=== PATIENT | female | born 1985 | race Caucasian/White ===

== ENCOUNTER 2018-05-07 12:31 | Inpatient (IN) | payer BC, MEDICAID ==
[~2018-05-07] VITALS: Ht 165.1 cm; Wt 59.1 kg
[2018-05-07] MEDS ORDERED: TENORMIN25 MG PO (12:47)
[2018-05-07] MEDS ORDERED: PROTONIX40 MG PO (12:48)
[2018-05-07] MEDS ORDERED: OMEPRAZOLE20 M1 PO (12:48)
--- NOTE | 2018-05-07 13:10 | NUR ---
URINE COLLECTED BY NURSE AND SENT TO LAB.
[2018-05-07 13:33] LABS: BASOPHILS 0.4 % (0-2); EOSINOPHILS 0.8 % (0-7); HCG SERUM NEGATIVE (NEGATIVE); HEMATOCRIT 39.2 % (36.0-48.0); HEMOGLOBIN 13.1 g/dL (12-16); IMMATURE GRANULOCYTES 0.4 % (0-5); LYMPHOCYTES 36.8 % (15-50); MCH 28.4 pg (26.0-34.0); MCHC 33.4 g/dL (31.0-37.0); MCV 84.8 fL (80.0-100.0); MEAN PLATELET VOLUME 9.9 fL (7.4-10.4); MONOCYTES 8.9 % (2-11); NEUTROPHILS 52.7 % (40-80); RBC 4.62 10x6/uL (4.00-5.40); RDW 12.4 % (11.5-14.5); WBC 7.8 10x3/uL (4.8-10.8)
[2018-05-07 13:37] LABS: PLATELET COUNT 305 10x3/uL (130-400)
[2018-05-07 13:38] LABS: APPEARANCE CLEAR (CLEAR); BILIRUBIN NEGATIVE (NEGATIVE); COLOR STRAW (YELLOW); GLUCOSE NEGATIVE (NEGATIVE); KETONE NEGATIVE (NEGATIVE); NITRITE NEGATIVE (NEGATIVE); PROTEIN NEGATIVE (NEGATIVE); SPECIFIC GRAVITY 1.005 (1.005-1.020); UROBILINOGEN NORMAL (NORMAL)
[2018-05-07 13:40] LABS: ALBUMIN 3.7 g/dL (3.4-5.0); ALKALINE PHOSPHATASE 51 U/L (46-116); ALT (SGPT) 20 U/L (10-68); BILIRUBIN - TOTAL 0.19 mg/dL (0.2-1.3); CALC OSMOLALITY 284 mosm/kg (275-300); CALCIUM 9.1 mg/dL (8.5-10.1); CHLORIDE - SERUM 105 mmol/L (98-107); CREATININE - SERUM 0.9 mg/dL (0.6-1.3); GLUCOSE 99 mg/dL (74-106); POTASSIUM - SERUM 3.7 mmol/L (3.5-5.1); PROTEIN - SERUM 7.5 g/dL (6.4-8.2); SODIUM 144 mmol/L (136-145); UREA NITROGEN 8 mg/dL (7-18); eGFR NON AFRICAN AMERICAN 77 mL/min (90-120)
[2018-05-07 13:41] LABS: UDS - AMPHET NEGATIVE QUAL (NEGATIVE); UDS - BARB NEGATIVE QUAL (NEGATIVE); UDS - BENZO NEGATIVE QUAL (NEGATIVE); UDS - COCAINE NEGATIVE QUAL (NEGATIVE); UDS - OPIATE NEGATIVE QUAL (NEGATIVE); UDS - PCP NEGATIVE QUAL (NEGATIVE); UDS - THC NEGATIVE QUAL (NEGATIVE)
[2018-05-07 13:43] LABS: AMYLASE - SERUM 95 U/L (25-115); CREATINE KINASE 28 UL (21-215); LIPASE 588 U/L (73-393); MAGNESIUM - SERUM 1.8 mg/dL (1.8-2.4); TROPONIN-I < 0.017 ng/mL (0.000-0.060)
[2018-05-07 14:07] LABS: MONO NEGATIVE (NEGATIVE)
[2018-05-07 15:58] LABS: GLUCOSE - CSF 58 MG/DL (40-75); PROTEIN - CSF 32 MG/DL (12-60)
[2018-05-07 16:13] LABS: APPEARANCE - CSF CLEAR; RBC - CSF 0 cmm (0-0)
[2018-05-07] MEDS ORDERED: NEURONTIN 300300 MG PO (21:37)
--- NOTE | 2018-05-07 21:50 | NUR ---
SPOKE WITH HASMUKH IN REGARDS TO PATIENT'S HOME MEDS PER THE PATIENT'S REQUEST.
--- NOTE | 2018-05-07 21:56 | NUR ---
SPOKE WITH TELE FOOD TRUCK CATERER. NO MONITORS ARE AVAILABLE AT THIS TIME.
[2018-05-08 00:01] VITALS: BP 104/69; BMI 22.5
[2018-05-08 00:20] VITALS: BP 104/69
[2018-05-08 04:00] VITALS: BP 98/59
[2018-05-08 07:15] LABS: BASOPHILS 0.4 % (0-2); EOSINOPHILS 1.1 % (0-7); HEMATOCRIT 34.7 % (36.0-48.0); HEMOGLOBIN 11.1 g/dL (12-16); IMMATURE GRANULOCYTES 0.7 % (0-5); LYMPHOCYTES 38.1 % (15-50); MCH 27.6 pg (26.0-34.0); MCV 86.3 fL (80.0-100.0); MEAN PLATELET VOLUME 9.9 fL (7.4-10.4); MONOCYTES 7.8 % (2-11); NEUTROPHILS 51.9 % (40-80); RBC 4.02 10x6/uL (4.00-5.40); RDW 12.4 % (11.5-14.5)
--- NOTE | 2018-05-08 07:17 | NUR ---
PT'S IV GOING OFF, SAYING INFUSING COMPLETE. NEW BAG OF NS HUNG AT THIS TIME. PT A/O X4, RESP EVEN AND NONLABORED ON RA. BOWEL SOUNDS ACTIVE X4. PT DENIES ANY PAIN AT THIS TIME. CALL LIGHT IN REACH, NAD NOTED, WILL CONTINUE PLAN OF CARE.
[2018-05-08 07:26] LABS: PLATELET COUNT 222 10x3/uL (130-400); WBC 5.6 10x3/uL (4.8-10.8)
[2018-05-08 07:56] LABS: ALBUMIN 2.8 g/dL (3.4-5.0); ALKALINE PHOSPHATASE 38 U/L (46-116); ALT (SGPT) 15 U/L (10-68); AMYLASE - SERUM 79 U/L (25-115); BILIRUBIN - TOTAL 0.27 mg/dL (0.2-1.3); CALC OSMOLALITY 288 mosm/kg (275-300); CALCIUM 7.8 mg/dL (8.5-10.1); CARBON DIOXIDE 26.2 mmol/L (21.0-32.0); CHLORIDE - SERUM 110 mmol/L (98-107); CREATININE - SERUM 0.8 mg/dL (0.6-1.3); GLUCOSE 90 mg/dL (74-106); LIPASE 479 U/L (73-393); POTASSIUM - SERUM 3.8 mmol/L (3.5-5.1); PROTEIN - SERUM 5.9 g/dL (6.4-8.2); SODIUM 146 mmol/L (136-145); THYROID STIMULATING HORMONE 1.03 uIU/mL (0.36-3.74); UREA NITROGEN 6 mg/dL (7-18); eGFR NON AFRICAN AMERICAN 88 mL/min (90-120)
[2018-05-08 08:24] VITALS: BP 112/67
[2018-05-08 12:56] VITALS: BP 107/71
[2018-05-08 13:19] VITALS: BMI 22.4
[2018-05-08 13:20] LABS: EBV - EARLY ANTIGEN AB IGG <9.0 U/mL (0.0-8.9); EBV VIRAL CAPSID AB IGG 74.4 U/mL (0.0-17.9); EBV VIRAL CAPSID AB IGM <36.0 U/mL (0.0-35.9)
[2018-05-08 16:50] VITALS: BP 99/65
--- NOTE | 2018-05-08 17:50 | NUR ---
NORCO GIVEN FOR PAIN LEVEL OF 7/10. PT DENIES ANY OTHER NEEDS AT THIS TIME. CALL LIGHT IN REACH, AT BEDSIDE, NAD NOTED.
[2018-05-08 19:48] VITALS: Ht 165.1 cm; Wt 59.1 kg
--- NOTE | 2018-05-08 21:28 | NUR ---
RECEIVED PATIENT, INTRODUCED MYSELF AND ASKED PAIN LEVEL, PATIENT DENIED ANY PAIN OR DISCOMFORT AT 0730. BED IN LOWEST POSITION, CALL LIGHT IN REACH. NO NEEDS AT THIS TIME. GAVE 2100 MEDS AND REMINDED PATIENT NPO STATUS AT MIDNIGHT.
--- NOTE | 2018-05-08 21:58 | NUR ---
PT HAS ORDER FOR TELEMETRY, NO TELEMETRY AVAILABLE ON THIS SHIFT.
--- NOTE | 2018-05-09 00:39 | NUR ---
PT NPO AFTER MIDNIGHT. PT VERBALIZED UNDERSTANDING. FLUIDS REMOVED FROM BEDSIDE. WILL CPOC
--- NOTE | 2018-05-09 06:12 | NUR ---
PT ASLEEP. AROUSES TO VERBAL STIMULI. PT IS AAO. NPO SINCE MIDNIGHT. PT HAS NS INFUSING AT 125 ORDERED. MORNING VITALS COMPLETE. PT DENIES ANY NEEDS. NO S/S OF DISTRESS. PT WILL CALL FOR ASSIST WHEN NEEDED. WILL CPOC
[2018-05-09 06:13] VITALS: BP 100/58
[2018-05-09 07:45] LABS: ALBUMIN 3.2 g/dL (3.4-5.0); ALKALINE PHOSPHATASE 47 U/L (46-116); ALT (SGPT) 16 U/L (10-68); AMYLASE - SERUM 82 U/L (25-115); BILIRUBIN - TOTAL 0.18 mg/dL (0.2-1.3); CALCIUM 8.3 mg/dL (8.5-10.1); CARBON DIOXIDE 25.9 mmol/L (21.0-32.0); CHLORIDE - SERUM 109 mmol/L (98-107); CREATININE - SERUM 0.8 mg/dL (0.6-1.3); GLUCOSE 98 mg/dL (74-106); LIPASE 446 U/L (73-393); POTASSIUM - SERUM 3.8 mmol/L (3.5-5.1); PROTEIN - SERUM 6.7 g/dL (6.4-8.2); SODIUM 145 mmol/L (136-145); eGFR NON AFRICAN AMERICAN 88 mL/min (90-120)
[2018-05-09 07:48] LABS: CALC OSMOLALITY 285 mosm/kg (275-300); UREA NITROGEN 3 mg/dL (7-18)
[2018-05-09 08:12] LABS: HEMATOCRIT 35.7 % (36.0-48.0); LYMPHOCYTES 20.3 % (15-50); MCH 28.6 pg (26.0-34.0); MCHC 33.6 g/dL (31.0-37.0); MCV 85.2 fL (80.0-100.0); MEAN PLATELET VOLUME 9.5 fL (7.4-10.4); NEUTROPHILS 73.7 % (40-80); PLATELET COUNT 209 10x3/uL (130-400); RBC 4.19 10x6/uL (4.00-5.40); WBC 8.4 10x3/uL (4.8-10.8)
[2018-05-09 09:34] VITALS: BP 106/68
[2018-05-09 12:41] VITALS: BP 113/68
[2018-05-09 16:42] VITALS: BP 109/70
--- NOTE | 2018-05-09 19:30 | NUR ---
INTRODUCED SELF TO PATIENT, PATIENT RESTING. ASKED ABOUT PATIENTS DAY, PATIENT STATED THAT SHE'S HAD A HEADACHE ALL DAY, NORCO DIDN'T RELIEVE AT 1700. STATED THAT NS WAS BURNING IN CHEST WHEN RECONNECTED. VITAL SIGNS STABLE, MENTIONED TALKING TO MD AND DAYSHIFT RN ABOUT CHANGING PROTONIX TO LIQUID/IVP BUT NO ORDER ENTERED TO CHANGE IT.
--- NOTE | 2018-05-09 22:00 | NUR ---
GAVE NORCO, PAIN 11/06 BUT REASSESSED BURNING R/T NS BEING RECONNECTED PT STATED THE BURNING WAS GONE BUT STILL HAD A HEADACHE AND FELT "OFF". AT BEDSIDE, GAVE SOUP TO PATIENT. BED LOW, CALL LIGHT IN REACH. NO NEEDS AT THIS TIME.
[2018-05-09 23:30] VITALS: BP 116/78
--- NOTE | 2018-05-10 02:03 | NUR ---
PATIENT ASLEEP, AT BEDSIDE.
--- NOTE | 2018-05-10 06:19 | NUR ---
PATIENT ASLEEP, TOOK VITALS AND GAVE 0600 PROTONIX. WANTS IV PROTONIX BUT TOOK PO THIS TIME. STILL COMPLAINING OF HEADACHE, WANTED TO ASK DR FOR EKG TODAY. OFFERED PAIN MEDS BUT PATIENT DENIED WANTING THEM AT THIS TIME.
[2018-05-10 07:28] LABS: ALKALINE PHOSPHATASE 47 U/L (46-116); ALT (SGPT) 13 U/L (10-68); AMYLASE - SERUM 84 U/L (25-115); BILIRUBIN - TOTAL 0.19 mg/dL (0.2-1.3); CALCIUM 8.2 mg/dL (8.5-10.1); CARBON DIOXIDE 23.4 mmol/L (21.0-32.0); CHLORIDE - SERUM 109 mmol/L (98-107); CREATININE - SERUM 0.7 mg/dL (0.6-1.3); GLUCOSE 99 mg/dL (74-106); LIPASE 513 U/L (73-393); POTASSIUM - SERUM 3.6 mmol/L (3.5-5.1); PROTEIN - SERUM 6.4 g/dL (6.4-8.2); SODIUM 142 mmol/L (136-145); eGFR NON AFRICAN AMERICAN > 90 mL/min (90-120)
[2018-05-10 07:30] LABS: CALC OSMOLALITY 279 mosm/kg (275-300); UREA NITROGEN 5 mg/dL (7-18)
[2018-05-10 07:50] LABS: BASOPHILS 0.3 % (0-2); EOSINOPHILS 1.8 % (0-7); HEMOGLOBIN 10.9 g/dL (12-16); IMMATURE GRANULOCYTES 0.6 % (0-5); LYMPHOCYTES 29.9 % (15-50); MCH 27.7 pg (26.0-34.0); MCHC 32.1 g/dL (31.0-37.0); MCV 86.3 fL (80.0-100.0); MEAN PLATELET VOLUME 9.8 fL (7.4-10.4); MONOCYTES 6.4 % (2-11); PLATELET COUNT 217 10x3/uL (130-400); RBC 3.94 10x6/uL (4.00-5.40); RDW 12.5 % (11.5-14.5)
--- NOTE | 2018-05-10 08:00 | NUR ---
PT LAYING IN BED RESTING WITH EYES OPEN. PT C/O HEADACHE THIS AM. RESPIRATIONS EVEN AND UNLABORED, NO S/S OF DISTRESS NOTED. BOWEL SOUNDS PRESENT X4 HYPOACTIVE. DENIES NEEDS. BED LOW AND LOCKED, SR UP X2, CL IN EASY REACH. WILL CONTINUE TO MONITOR.
[2018-05-10 08:24] VITALS: BP 116/72
--- NOTE | 2018-05-10 11:00 | NUR ---
SITTING UP IN BED. REQUESTED AND GIVEN JELLO TO EAT. DENIES NEEDS. NO C/O PAIN AT THIS TIME.
[2018-05-10 11:40] VITALS: BP 110/79
--- NOTE | 2018-05-10 12:17 | NUR ---
Nutrition Follow Up: Chart reviewed. Diet: Regular PO Intake: 70% meal avg Wt stable BM: 05/09/18 Labs reviewed - Lipase continues elevated Meds noted including Creon Rec continue current diet as tolerated. RD following.
--- NOTE | 2018-05-10 16:30 | NUR ---
IV TO LEFT AC REMOVED, TIP INTACT. NEW IV RESITED TO RIGHT FOREARM, PATENT, SWAB CAPS IN USE. VOICES THAT THE IV SITE FEELS A WHOLE LOT BETTER. DENIES FURTHER NEEDS. CL IN EASY REACH.
[2018-05-10 16:43] VITALS: BP 108/70
--- NOTE | 2018-05-10 20:00 | NUR ---
THE PATIENT WAS WATCHING TELEVISION WITH FAMILY WHEN STAFF ENTERED HER ROOM. BED IN THE LOW POSITION WITH SIDERAILS X1 AND CALL LIGHT WITHIN REACH. THE PATIENT WILL BE GOING FOR A MRI SOON. THE PATIENT DEMONSTRATES UNDERSTANDING OF HER CALLL LIGHT. THE PATIENT HAS NOQUESTIONS OR CONCERNS AT THIS TIME.
[2018-05-10 20:36] VITALS: BP 126/78
[2018-05-11] VITALS: BP 130/68
[2018-05-11 03:00] VITALS: BP 125/58
--- NOTE | 2018-05-11 03:20 | NUR ---
THE PATIENT APPEARS TO BE SLEEPING. FAMILY IN THE ROOM.
[2018-05-11 06:11] LABS: BASOPHILS 0.3 % (0-2); EOSINOPHILS 1.6 % (0-7); HEMATOCRIT 33.4 % (36.0-48.0); HEMOGLOBIN 11.1 g/dL (12-16); IMMATURE GRANULOCYTES 0.5 % (0-5); LYMPHOCYTES 35.1 % (15-50); MCH 28.2 pg (26.0-34.0); MCHC 33.2 g/dL (31.0-37.0); MEAN PLATELET VOLUME 9.2 fL (7.4-10.4); MONOCYTES 6.6 % (2-11); NEUTROPHILS 55.9 % (40-80); PLATELET COUNT 211 10x3/uL (130-400); RBC 3.93 10x6/uL (4.00-5.40); RDW 12.4 % (11.5-14.5); WBC 6.1 10x3/uL (4.8-10.8)
[2018-05-11 06:40] LABS: ALKALINE PHOSPHATASE 44 U/L (46-116); ALT (SGPT) 15 U/L (10-68); AMYLASE - SERUM 69 U/L (25-115); BILIRUBIN - TOTAL 0.22 mg/dL (0.2-1.3); CALC OSMOLALITY 282 mosm/kg (275-300); CALCIUM 7.9 mg/dL (8.5-10.1); CARBON DIOXIDE 26.3 mmol/L (21.0-32.0); CHLORIDE - SERUM 108 mmol/L (98-107); CREATININE - SERUM 0.8 mg/dL (0.6-1.3); GLUCOSE 101 mg/dL (74-106); LIPASE 391 U/L (73-393); POTASSIUM - SERUM 3.5 mmol/L (3.5-5.1); PROTEIN - SERUM 6.4 g/dL (6.4-8.2); SODIUM 143 mmol/L (136-145); eGFR NON AFRICAN AMERICAN 88 mL/min (90-120)
[2018-05-11 06:44] LABS: UREA NITROGEN 8 mg/dL (7-18)
--- NOTE | 2018-05-11 07:35 | NUR ---
PT RESTING IN BED EYES OPEN. C/O PAIN 11/06. NO S/S OF ACUTE DISTRESS NOTED. IV TO RIGHT FOREARM, SITE PATENT WITHOUT REDNESS OR SWELLING. NS INFUSING @ 125ML/HR. PT ON TELEMETRY 63 SR. SPINAL TAP YESTERDAY. PT ALERT AND ORIENTED. PT DENIES ANYTHING FURTHER AT THIS TIME. CALL LIGHT IN REACH. WILL CONTINUE TO MONITOR.
--- NOTE | 2018-05-11 08:00 | NUR ---
PT C/O PAIN, 11/06. GAVE NORCO 5 FOR PAIN. NO S/S OF ACUTE DISTRESS. PT DENIES ANYTHING FURTHER AT THIS TIME. CALL LIGHT IN REACH. WILL CONTINUE TO MONITOR.
[2018-05-11 08:25] VITALS: BP 102/69
[2018-05-11 12:02] VITALS: BP 112/77
--- NOTE | 2018-05-11 12:30 | NUR ---
PT EATING LUNCH AT THIS TIME, DENIES NEEDS. WCTM.
[2018-05-11 16:52] VITALS: BP 105/70
--- NOTE | 2018-05-11 18:45 | NUR ---
PT RESTING IN BED, EYES OPEN. AT BEDSIDE. NO C/O PAIN. NO S/S OF DISTRESS NOTED. PT DENIES ANYTHING FURTHER AT THIS TIME. CALL LIGHT IN REACH. WILL CONTINUE TO MONITOR.
[2018-05-11 19:00] VITALS: BP 114/53
--- NOTE | 2018-05-11 19:38 | NUR ---
RECIEVED UP IN BED WITH HOB ELEVATED. ALERT AND ORIENTED X4. SPOUSE AT BEDSIDE. IV TO RIGHT FA WITH NS INFUSING AT 125HR. DENIES ANY NEEDS AT THIS TIME. WILL CONT. POC.
[2018-05-12] VITALS: BP 120/80
[2018-05-12 03:00] VITALS: BP 112/69
[2018-05-12 07:33] LABS: BASOPHILS 0.3 % (0-2); EOSINOPHILS 1.2 % (0-7); HEMATOCRIT 33.2 % (36.0-48.0); HEMOGLOBIN 10.9 g/dL (12-16); IMMATURE GRANULOCYTES 0.8 % (0-5); LYMPHOCYTES 33.9 % (15-50); MCH 27.9 pg (26.0-34.0); MCHC 32.8 g/dL (31.0-37.0); MCV 85.1 fL (80.0-100.0); NEUTROPHILS 55.8 % (40-80); PLATELET COUNT 230 10x3/uL (130-400); RDW 12.6 % (11.5-14.5)
[2018-05-12 08:02] LABS: ALKALINE PHOSPHATASE 39 U/L (46-116); ALT (SGPT) 13 U/L (10-68); AMYLASE - SERUM 71 U/L (25-115); BILIRUBIN - TOTAL 0.19 mg/dL (0.2-1.3); CALC OSMOLALITY 283 mosm/kg (275-300); CARBON DIOXIDE 24.7 mmol/L (21.0-32.0); CHLORIDE - SERUM 108 mmol/L (98-107); CREATININE - SERUM 0.7 mg/dL (0.6-1.3); GLUCOSE 89 mg/dL (74-106); LIPASE 427 U/L (73-393); POTASSIUM - SERUM 3.5 mmol/L (3.5-5.1); PROTEIN - SERUM 6.1 g/dL (6.4-8.2); SODIUM 144 mmol/L (136-145); UREA NITROGEN 6 mg/dL (7-18); eGFR NON AFRICAN AMERICAN > 90 mL/min (90-120)
[2018-05-12 09:37] VITALS: BP 107/63
[2018-05-12 13:00] VITALS: BP 114/81
--- NOTE | 2018-05-12 14:45 | NUR ---
RN NOTE - PATIENT OOB TO SHOWER. PATIENT AT BEDSIDE. BED STRIPPED AND NEW LINEN APPLIED. PATIENTS JOSIAH SECRET BLANKET PLACED ON OPPOSED TO HOSPITAL BLANKET PER PATIENTS . NO DISTRESS. PATIENT STATES SHE NEEDED NO HELP WHILE BATHING.
[2018-05-12 15:12] VITALS: BP 109/73
--- NOTE | 2018-05-12 16:14 | NUR ---
C/O SEVERE HEADACHE ON RIGHT SIDE RADIATING ACROSS FOREHEAD. STATED SHE DOES SUFFER FROM MIGRAINES BUT THIS ONE IS "DIFFERENT" VS WERE B/P OF 109/66, HEART RATE OF 60. ADMINISTERED NORCO PER ORDER. WILL CONTINUE TO MONITOR. BED LOWERED AND LOCKED, CALL LIGHT WITHIN REACH. CPOC
--- NOTE | 2018-05-12 16:29 | NUR ---
22 GAUGE PLACED X 1 STICK TO LEFT HAND. GOOD BLOOD RETURN, EASY FLUSH. TAPED, DATED AND SECURED. TOLERATED IV PLACEMENT WELL. NO DISTRESSS.
[2018-05-12 19:00] VITALS: BP 100/63
--- NOTE | 2018-05-12 21:20 | NUR ---
PATIENT RESTING IN BED WITH NO S/S OF DISTRESS. ADMINISTERED MEDS PER ORDERS. PATIENT DENIES OTHER NEEDS AT THIS TIME. BED IN LOWEST POSITION AND CALL LIGHT WITHIN REACH. ENCOURAGED THE PATIENT TO CALL IF HE HAS NEEDS.
[2018-05-13] VITALS: BP 115/60
[2018-05-13 03:00] VITALS: BP 101/64
[2018-05-13 08:00] VITALS: BP 115/77
--- NOTE | 2018-05-13 08:10 | NUR ---
PT AOX4 RESP EVEN AND NONLABORED PT DENIES NEEDS AT THIS TIME IV TO LEFT HAND PATENT AND INTACT AT THIS TIME SRX2 BED AT LOWEST SETTING CALL LIGHT WITHIN REACH WILL CONTINUE TO MONITOR
[2018-05-13 10:12] LABS: BASOPHILS 0.5 % (0-2); EOSINOPHILS 1.1 % (0-7); HEMATOCRIT 38.9 % (36.0-48.0); HEMOGLOBIN 12.8 g/dL (12-16); IMMATURE GRANULOCYTES 0.5 % (0-5); LYMPHOCYTES 34.1 % (15-50); MCH 28.1 pg (26.0-34.0); MCHC 32.9 g/dL (31.0-37.0); MCV 85.3 fL (80.0-100.0); MEAN PLATELET VOLUME 10.7 fL (7.4-10.4); MONOCYTES 7.6 % (2-11); NEUTROPHILS 56.2 % (40-80); PLATELET COUNT 255 10x3/uL (130-400); RBC 4.56 10x6/uL (4.00-5.40); RDW 12.5 % (11.5-14.5); WBC 6.3 10x3/uL (4.8-10.8)
[2018-05-13 10:44] LABS: ALBUMIN 3.7 g/dL (3.4-5.0); ALKALINE PHOSPHATASE 48 U/L (46-116); ALT (SGPT) 16 U/L (10-68); AMYLASE - SERUM 94 U/L (25-115); BILIRUBIN - TOTAL 0.18 mg/dL (0.2-1.3); CALC OSMOLALITY 283 mosm/kg (275-300); CARBON DIOXIDE 23.7 mmol/L (21.0-32.0); CHLORIDE - SERUM 109 mmol/L (98-107); CREATININE - SERUM 0.8 mg/dL (0.6-1.3); GLUCOSE 88 mg/dL (74-106); LIPASE 581 U/L (73-393); POTASSIUM - SERUM 3.5 mmol/L (3.5-5.1); PROTEIN - SERUM 7.5 g/dL (6.4-8.2); SODIUM 144 mmol/L (136-145); UREA NITROGEN 6 mg/dL (7-18); eGFR NON AFRICAN AMERICAN 88 mL/min (90-120)
[2018-05-13 12:00] VITALS: BP 109/51
[2018-05-13 13:02] LABS: % SATURATION 17 % (15-55); IRON 65 ug/dl (35-150); TOTAL IRON BIND CAPACITY 378 ug/dl (260-445); UNSAT IRON BIND CAPACITY 313 ug/dl (150-375)
--- NOTE | 2018-05-13 15:31 | NUR ---
Spoke with pt about nutrition. She is now NPO Started on Procalamine at 75mL/hour. This rate provides 441 calories and 53gm protein RD following
[2018-05-13 16:00] VITALS: BP 104/69
[2018-05-13 20:00] VITALS: BP 114/73
--- NOTE | 2018-05-13 20:12 | NUR ---
PATIENT C/O OF PAIN AT IV SITE. WILL START NEW IV
[2018-05-13 20:57] LABS: ERYTHROCYTE SEDIMENTATION RATE 14 mm/hr (0-20)
--- NOTE | 2018-05-13 23:35 | NUR ---
ROBBIE PAPPAS ATTEMPTED THE PATIENT'S IV TWO TIMES AND WAS UNSUCCESSFUL. CALLED ICU, THEY WILL SEND A NURSE SOON POSSIBLE TO ATTEMPT IV. SPOKE WITH NUPUR
[2018-05-14] VITALS: BP 104/65
--- NOTE | 2018-05-14 02:35 | NUR ---
SPOKE WITH ICU AGAIN IN REGARDS TO STARTING IV. NUPUR STATED IT WOULD BE A LITTLE WHILE BUT THEY WILL BE DOWN
[2018-05-14 04:00] VITALS: BP 102/67
--- NOTE | 2018-05-14 04:50 | NUR ---
ER NURSE RESTARTED PATIENT'S IV IN THE LEFT UPPER ARM WITH A 22G
[2018-05-14 07:05] LABS: BASOPHILS 0.1 % (0-2); EOSINOPHILS 1.3 % (0-7); HEMATOCRIT 38.8 % (36.0-48.0); HEMOGLOBIN 13.1 g/dL (12-16); IMMATURE GRANULOCYTES 0.3 % (0-5); LYMPHOCYTES 36.4 % (15-50); MCH 28.3 pg (26.0-34.0); MCHC 33.8 g/dL (31.0-37.0); MCV 83.8 fL (80.0-100.0); MEAN PLATELET VOLUME 11.2 fL (7.4-10.4); MONOCYTES 7.6 % (2-11); NEUTROPHILS 54.3 % (40-80); RBC 4.63 10x6/uL (4.00-5.40); RDW 12.5 % (11.5-14.5); WBC 6.8 10x3/uL (4.8-10.8)
[2018-05-14 07:13] LABS: PLATELET COUNT 200 10x3/uL (130-400)
[2018-05-14 07:37] LABS: ALBUMIN 3.2 g/dL (3.4-5.0); ALKALINE PHOSPHATASE 45 U/L (46-116); ALT (SGPT) 15 U/L (10-68); BILIRUBIN - TOTAL 0.14 mg/dL (0.2-1.3); CALC OSMOLALITY 283 mosm/kg (275-300); CALCIUM 8.6 mg/dL (8.5-10.1); CARBON DIOXIDE 24.6 mmol/L (21.0-32.0); CHLORIDE - SERUM 108 mmol/L (98-107); CREATININE - SERUM 0.7 mg/dL (0.6-1.3); GLUCOSE 91 mg/dL (74-106); LIPASE 437 U/L (73-393); POTASSIUM - SERUM 3.4 mmol/L (3.5-5.1); PROTEIN - SERUM 6.8 g/dL (6.4-8.2); SODIUM 144 mmol/L (136-145); UREA NITROGEN 5 mg/dL (7-18); eGFR NON AFRICAN AMERICAN > 90 mL/min (90-120)
[2018-05-14 07:55] VITALS: BP 104/70
[2018-05-14 10:24] LABS: FOLATE (FOLIC ACID) - SERUM 12.5 ng/mL (>3.0)
[2018-05-14 11:54] VITALS: BP 102/67
[2018-05-14 15:40] VITALS: BP 142/57
--- NOTE | 2018-05-14 19:31 | NUR ---
PATIENT RESTING IN BED AND DENIES NEEDS AT THIS TIME. AT BEDSIDE. BED IN LOWEST POSITION AND CALL LIGHT WITHIN REACH. ENCOURAGED THE PATIENT TO CALL IF SHE HAS NEEDS. WILL CONTINUE TO MONITOR.
[2018-05-14 19:44] VITALS: BP 102/60
[2018-05-15 04:00] VITALS: BP 96/50
--- NOTE | 2018-05-15 04:50 | NUR ---
PATIENT STATED THAT SHE HAD NOT URINATED TONIGHT AND STATED SHE DID NOT FEEL THE URGE TO GO. I ASKED THE PATIENT TO GO TO THE RESTROOM AND TRY TO URINATE. PATIENT WAS ABLE TO VOID ONE TIME. PATIENT IS CONCERNED BECAUSE HER MENSTRUAL CYCLE ENDED APROX ONE WEEK AGO AND THE PATIENT STATED SHE HAS BLOOD IN HER URINE AND FEELS THAT SHE IS STARTING HER CYCLE AGAIN.
[2018-05-15 05:44] LABS: BASOPHILS 0.1 % (0-2); EOSINOPHILS 1.1 % (0-7); HEMATOCRIT 36.8 % (36.0-48.0); HEMOGLOBIN 12.2 g/dL (12-16); IMMATURE GRANULOCYTES 0.2 % (0-5); LYMPHOCYTES 26.9 % (15-50); MCH 27.9 pg (26.0-34.0); MCHC 33.2 g/dL (31.0-37.0); MEAN PLATELET VOLUME 10.5 fL (7.4-10.4); MONOCYTES 7.6 % (2-11); NEUTROPHILS 64.1 % (40-80); PLATELET COUNT 237 10x3/uL (130-400); RBC 4.38 10x6/uL (4.00-5.40); RDW 12.5 % (11.5-14.5); WBC 8.2 10x3/uL (4.8-10.8)
[2018-05-15 06:10] LABS: ALBUMIN 3.3 g/dL (3.4-5.0); ALKALINE PHOSPHATASE 45 U/L (46-116); ALT (SGPT) 13 U/L (10-68); BILIRUBIN - TOTAL 0.27 mg/dL (0.2-1.3); CALCIUM 8.7 mg/dL (8.5-10.1); CARBON DIOXIDE 24.6 mmol/L (21.0-32.0); CHLORIDE - SERUM 105 mmol/L (98-107); CREATININE - SERUM 0.7 mg/dL (0.6-1.3); GLUCOSE 102 mg/dL (74-106); LIPASE 401 U/L (73-393); POTASSIUM - SERUM 3.9 mmol/L (3.5-5.1); PROTEIN - SERUM 6.7 g/dL (6.4-8.2); SODIUM 141 mmol/L (136-145); eGFR NON AFRICAN AMERICAN > 90 mL/min (90-120)
[2018-05-15 06:11] LABS: CALC OSMOLALITY 279 mosm/kg (275-300); UREA NITROGEN 11 mg/dL (7-18)
[2018-05-15 07:54] VITALS: BP 111/62
[2018-05-15 11:46] VITALS: BP 106/73
--- NOTE | 2018-05-15 12:29 | MORECARE ---
CASE MANAGEMENT DISCHARGE SUMMARY PATIENT: CYNDIE CAMACHO UNIT: [id number] ADM DATE: 05/09/18 AGE: 32 : 85 SEX: F ROOM/BED: D.1205 AUTHOR: LESLY ALBERTS PHYSICIAN: REFERRING PHYSICIAN: DOLORES ALVAREZ MD DATE OF SERVICE: 05/15/18 Discharge Plan Patient Name: CYNDIE CAMACHO Facility: [facility]:[place] : 1985 Planned Disposition: Anticipated Discharge Date: Discharge Date: Expected LOS: Initial Reviewer: [email or web address] Initial Review Date: 05/15/2018 Generated: 05/15/18 1:29 pm Comments DCP- Discharge Planning Updated by [email or web address]: Nickie Smith on 05/15/18 11:[address] Patient Name: CYNDIE CAMACHO Admission Status: ER Accout number: [id number] Admission Date: 05-09-2018 : 1985 Admission Diagnosis:FEVER, UNSPECIFIED Attending: DOLORES ALVAREZ Current LOS: 6 Anticipated DC Date: Planned Disposition: Primary Insurance: [employer] OUT OF STATE Discharge Planning Comments: CM MET WITH PATIENT ABOUT DC PLANNING/NEEDS. [facility] DOESN'T KNOW OF ANY NEEDS AT THISTIME. [facility] HOME IS SAFE AND SHE LIVES THERE WITH HER FAMILY. CM WILL FOLLOW AND ASSIST NEEDED WITH DC PLANNING/NEEDS. Software Configuration Engineer: Nickie Smith DCPIA - Discharge Planning Initial Assessment Updated by [id number]: Nickie Smith on 05/15/18 12:22 pm * Is the patient Alert and Oriented? Yes * PCP MARIUSZ * Pharm[facility] * Preadmission Environment Home with Family * ADLs Independent * Equipment None * List name and contact numbers for known caregivers / representatives who currently or will assist patient after discharge: GAYATRI, , * Community resources currently utilized None * Can the patient safely return to the preadmission environment? Yes * Has this patient been hospitalized within the prior 30 days at any hospital? No Patient Name: CYNDIE CAMACHO Page [phone] at 1229 All edits/amendments must be made on the electronic document DICTATION DATE: 05/15/181228 REGIONAL CLINICAL RESEARCH ASSOCIATE: BE 05/15/181228 RPT#: [id number] DC DATE: STATUS: ADM IN [facility] [address] [place] [address] END OF REPORT
--- NOTE | 2018-05-15 15:37 | NUR ---
4MG OF ZOFRAN GIVEN FOR NAUSEA. ALSO HUNG ANTIBIOTIC. PT DENIES DENIES ANY OTHER NEEDS AT THIS TIME. CALL LIGHT IN REACH, NAD NOTED,W ILL CONTINUE TO MONITOR.
[2018-05-15 15:46] VITALS: BP 117/72
--- NOTE | 2018-05-15 16:01 | NUR ---
Pt reports no appetite Discussed the calories and protein provided by Procalamine Discussed some food options that may be better tolerated. Encouraged a low fat diet Will add fruit on each tray per pt requests RD following
--- NOTE | 2018-05-15 19:37 | NUR ---
PT BACK FROM IMAGING. FAMILY CHANGED BED SHEETS. PT HAS NO S/S OF DISTRESS. WILL CPOC
--- NOTE | 2018-05-15 20:42 | NUR ---
PT HOOKED UP TO PROCAL AT 75 TO LEFT AC. PT TELEMETRY PLACED ON AND BATTERY CHANGED. DINNER REMOVED FROM ROOM PT KEPT THE FRUIT AND ENSURE. PT ATE 0 OF ACTUAL DINNER TRAY. PT HAS NO S/S OF DISTRESS. PT IS AAO, UP WITH MINIMAL ASSIST. FAMILY AT BEDSIDE. CALL LIGHT IN REACH. NAME AND DATE PLACED ON BOARD. WILL CPOC
[2018-05-15 21:00] VITALS: BP 100/67
--- NOTE | 2018-05-15 23:56 | NUR ---
PT ASLEEP. RESP EVEN AND UNLABORED. BEDLOW AND CALL LIGHT IN REACH. PT HAS NO S/S OF DISTRESS. FAMILY AT BEDSIDE. WILL CPOC
[2018-05-16 06:28] LABS: BASOPHILS 0.2 % (0-2); EOSINOPHILS 1.4 % (0-7); HEMATOCRIT 36.8 % (36.0-48.0); HEMOGLOBIN 12.2 g/dL (12-16); IMMATURE GRANULOCYTES 0.2 % (0-5); LYMPHOCYTES 26.8 % (15-50); MCH 28.1 pg (26.0-34.0); MCHC 33.2 g/dL (31.0-37.0); MCV 84.8 fL (80.0-100.0); MEAN PLATELET VOLUME 10.5 fL (7.4-10.4); MONOCYTES 8.8 % (2-11); NEUTROPHILS 62.6 % (40-80); PLATELET COUNT 240 10x3/uL (130-400); RBC 4.34 10x6/uL (4.00-5.40); RDW 12.8 % (11.5-14.5); WBC 8.7 10x3/uL (4.8-10.8)
--- NOTE | 2018-05-16 06:48 | NUR ---
PT RESTING IN BED. PT DENIES ANY NEEDS. NO S/S OF DISTRESS,. FAMILY IN ROOM. PT WILL CALL FOR ASSIST WHEN NEEDED. WILL CPOC
[2018-05-16 06:59] VITALS: BP 112/71
--- NOTE | 2018-05-16 07:02 | NUR ---
MEDS AND VITALS DONE. PT WAS ASLEEP AROUSES TO VERBAL STIMULI. PT STATES BEST SLEEP SHE HAS HAD IN A LONG TIME. PT HAS NO S/S OF DISTRESS. PROCAL INFUSING ORDERED. PT DENIES ANY NEEDS. NO S/S OF DISTRESS. WILL CPOC
[2018-05-16 07:10] LABS: ALBUMIN 3.2 g/dL (3.4-5.0); ALKALINE PHOSPHATASE 41 U/L (46-116); ALT (SGPT) 12 U/L (10-68); BILIRUBIN - TOTAL 0.17 mg/dL (0.2-1.3); CALC OSMOLALITY 277 mosm/kg (275-300); CALCIUM 8.6 mg/dL (8.5-10.1); CARBON DIOXIDE 25.2 mmol/L (21.0-32.0); CHLORIDE - SERUM 104 mmol/L (98-107); CREATININE - SERUM 0.7 mg/dL (0.6-1.3); GLUCOSE 102 mg/dL (74-106); LIPASE 425 U/L (73-393); POTASSIUM - SERUM 3.8 mmol/L (3.5-5.1); PROTEIN - SERUM 6.6 g/dL (6.4-8.2); SODIUM 140 mmol/L (136-145); UREA NITROGEN 10 mg/dL (7-18); eGFR NON AFRICAN AMERICAN > 90 mL/min (90-120)
--- NOTE | 2018-05-16 08:26 | NUR ---
PT LYING IN BED STATED SHE IS STARTING TO SPOT, AFTER URINATING THIS MORNING BLOOD IS IN URINE, SHE ADVISED DR CHAMPAGNE YESTERDAY AND HE STATED HE WOULD REVIEW MEDS, WILLMENTION TO AGAIN THIS MORNING, CONTINUE WITH PLAN OF CARE
[2018-05-16 09:46] VITALS: BP 106/68
--- NOTE | 2018-05-16 11:41 | NUR ---
PT LYING IN BED C/O CONSTANT HEADACHES STILL AND NAUSEA. NO NEEDS VOICED STATED SHE IS TRYING TO EAT BUT STILL NO APPETITIE. BED IN LOW POSITION, CL IN REACH CONTINUE WITH PLAN OF CARE
[2018-05-16 12:22] VITALS: BP 109/64
[2018-05-16 17:27] VITALS: BP 109/68
--- NOTE | 2018-05-16 17:50 | NUR ---
PT REDavid AND REC'D THAIS AT THIS TIME. WCBHAVNA.
--- NOTE | 2018-05-16 19:43 | NUR ---
INTRODUCED SELF TO PATIENT, AT BEDSIDE. PATIENT MENTIONED SEVERAL CONCERNS OVER THE LAST FEW SHIFTS. PATIENT STATED THAT DR. MARTINEZ MENTIONED SENDING HER HOME OVER THE WEEKEND, SHE FEELS IF SHE ISN'T READY TO BE DISCHARGED. PER PATIENT HAS HAD A CONSTANT HEADACHE, LOW BP FOR HER BASELINE AND PATIENT MENTIONED, AGAIN, TO THIS NURSE THAT TWO SHIFTS AGO SHE WENT APPROX. 13 HOURS WITHOUT URINATING AND IS NOW SPOTTING BLOOD (MENSES WAS COMPLETE LAST WEEK). EDUCATED AND DISCUSSED WITH PATIENT ABOUT S/SX OF UTI OR YEAST POSS. R/T BEING ON ROCEPHIN. PROVIDED NEW HAT TO DOCUMENT STRICT I&O'S AND MONITOR FOR ANY BLEEDING.
--- NOTE | 2018-05-16 21:55 | NUR ---
PROVIDED PATIENT WITH NEW LINENS AND BATH NECESSITIES. TOOK PT OFF TELEMETRY, HELPED PT WITH SHOWER. PLACED BACK ON TELEMETRY. PATIENT STATED THAT SHE FELT NERVOUS TO TAKE ANYTHING FOR PAIN BECAUSE OF HER BP ON PREVIOUS SHIFTS. ADVISED PT THAT WE WOULD CHECK BP BEFORE ADMINISTERING ANY PAIN MEDS. PT UNDERSTOOD. BED IN LOWEST POSITION, CALL LIGHT WITHIN REACH.
--- NOTE | 2018-05-16 23:06 | NUR ---
PT EXPRESSING CONCERN REGARDING URINE LOOKING LIKE IT HAS BLOOD. PT HAD A 200CC OUTPUT. STRAWCOLOR WITH SEDIMENT PRESENT, ON THE SEDIMENT IS BLOOD. PLACED AN ORDER FOR A UA. PT DENIES ANY OTHER NEEDS. WILL CPOC
[2018-05-17 00:17] LABS: APPEARANCE CLEAR (CLEAR); BILIRUBIN NEGATIVE (NEGATIVE); COLOR COLORLESS (YELLOW); GLUCOSE NEGATIVE (NEGATIVE); KETONE NEGATIVE (NEGATIVE); NITRITE NEGATIVE (NEGATIVE); PROTEIN NEGATIVE (NEGATIVE); SPECIFIC GRAVITY 1.005 (1.005-1.020); UROBILINOGEN NORMAL (NORMAL)
--- NOTE | 2018-05-17 05:15 | NUR ---
PATIENTS CAME TO NURSES STATION STATING PATIENT WAS IN PAIN. PATIENT WAS SHAKING, STATED SHE FELT LIKE SHE HAD "PRESSURE FROM MY PANCREAS THAT MAKES ME FEEL LIKE I CAN'T BREATHE" GAVE MAURICIO, WILL REASSESS PAIN LEVEL IN 30 MINUTES. PATIENTS VITAL SIGNS ARE STABLE. BED IN LOW POSITION, CALL LIGHT IN REACH.
[2018-05-17 05:20] VITALS: BP 124/74
--- NOTE | 2018-05-17 06:51 | NUR ---
PATIENT STATES IS STILL HAVING SOME CHEST PAINS, PAIN WAS UNRELIEVED COMPLETELY BY NORCO. GIVEN ZOFRAN 4MG AT 0650.
[2018-05-17 06:55] LABS: ALBUMIN 3.6 g/dL (3.4-5.0); ALKALINE PHOSPHATASE 47 U/L (46-116); ALT (SGPT) 14 U/L (10-68); BILIRUBIN - TOTAL 0.27 mg/dL (0.2-1.3); CALC OSMOLALITY 282 mosm/kg (275-300); CALCIUM 9.1 mg/dL (8.5-10.1); CHLORIDE - SERUM 105 mmol/L (98-107); CREATININE - SERUM 0.7 mg/dL (0.6-1.3); GLUCOSE 97 mg/dL (74-106); LIPASE 529 U/L (73-393); POTASSIUM - SERUM 3.8 mmol/L (3.5-5.1); SODIUM 142 mmol/L (136-145); UREA NITROGEN 12 mg/dL (7-18); eGFR NON AFRICAN AMERICAN > 90 mL/min (90-120)
[2018-05-17 07:10] LABS: BASOPHILS 0.2 % (0-2); EOSINOPHILS 1.1 % (0-7); HEMATOCRIT 36.9 % (36.0-48.0); HEMOGLOBIN 12.1 g/dL (12-16); IMMATURE GRANULOCYTES 0.2 % (0-5); LYMPHOCYTES 26.9 % (15-50); MCH 27.8 pg (26.0-34.0); MCHC 32.8 g/dL (31.0-37.0); MCV 84.8 fL (80.0-100.0); MEAN PLATELET VOLUME 10.6 fL (7.4-10.4); MONOCYTES 6.1 % (2-11); NEUTROPHILS 65.5 % (40-80); PLATELET COUNT 261 10x3/uL (130-400); RBC 4.35 10x6/uL (4.00-5.40); RDW 12.7 % (11.5-14.5); WBC 10.1 10x3/uL (4.8-10.8)
[2018-05-17 08:00] VITALS: BP 105/69
--- NOTE | 2018-05-17 10:57 | NUR ---
Nutrition Follow Up: Chart reviewed. Pt is now NPO for MRCP. Previously pt was eating 26% meal avg on a low fat/residue diet. Noted pt continues with poor po intake and abdominal pain with eating. BM: 05/17/18 Wt loss 5# since admit Labs reviewed - Lipase continues elevated Meds noted - Procalamine d/c Pt is now assessed at severe malnutrition of acute illness R/T medical dx AEB: 1. </= to 50% intake of est energy needs for >/= to 5 days 2. > 2% wt loss in 1 week 3. Reduced regulatory affairs spec strength Rec resuming low fat/residue diet as medically feasible. Will honor food preferences. RD following.
[2018-05-17 11:53] VITALS: BP 120/64
[2018-05-17 16:00] VITALS: BP 116/73
--- NOTE | 2018-05-17 18:21 | NUR ---
RESTING QUIETLY IN BED. UNABLE TO EAT AT THIS TIME. REPORTS PAIN IS CONSTANT STILL THOUGH SLIGHTLY IMPROVED.
[2018-05-17 20:00] VITALS: BP 108/65
[2018-05-18] VITALS: BP 119/70
[2018-05-18 04:00] VITALS: BP 106/49
[2018-05-18 07:27] LABS: BASOPHILS 0.1 % (0-2); EOSINOPHILS 1.4 % (0-7); HEMATOCRIT 38.2 % (36.0-48.0); HEMOGLOBIN 12.4 g/dL (12-16); IMMATURE GRANULOCYTES 0.1 % (0-5); LYMPHOCYTES 26.9 % (15-50); MCH 27.7 pg (26.0-34.0); MCHC 32.5 g/dL (31.0-37.0); MCV 85.5 fL (80.0-100.0); MEAN PLATELET VOLUME 10.6 fL (7.4-10.4); MONOCYTES 9.3 % (2-11); NEUTROPHILS 62.2 % (40-80); PLATELET COUNT 226 10x3/uL (130-400); RBC 4.47 10x6/uL (4.00-5.40); RDW 12.8 % (11.5-14.5)
[2018-05-18 07:39] LABS: ALBUMIN 3.4 g/dL (3.4-5.0); ALKALINE PHOSPHATASE 51 U/L (46-116); ALT (SGPT) 19 U/L (10-68); BILIRUBIN - TOTAL 0.45 mg/dL (0.2-1.3); CALC OSMOLALITY 274 mosm/kg (275-300); CALCIUM 8.7 mg/dL (8.5-10.1); CARBON DIOXIDE 28.2 mmol/L (21.0-32.0); CHLORIDE - SERUM 103 mmol/L (98-107); CREATININE - SERUM 0.8 mg/dL (0.6-1.3); GLUCOSE 96 mg/dL (74-106); LIPASE 509 U/L (73-393); POTASSIUM - SERUM 4.3 mmol/L (3.5-5.1); PROTEIN - SERUM 6.9 g/dL (6.4-8.2); SODIUM 138 mmol/L (136-145); UREA NITROGEN 10 mg/dL (7-18); eGFR NON AFRICAN AMERICAN 88 mL/min (90-120)
--- NOTE | 2018-05-18 13:30 | NUR ---
DENIES ANY NEEDS AT THIS TIME.
[2018-05-18] MEDS ORDERED: CREON (PANCRELI1 CAP PO (14:07)
--- NOTE | 2018-05-18 16:30 | NUR ---
DISCUSSED DISCHARGE INSTRUCTIONS WITH FRANCINE. TOLD HER TO GO TO [facility] ED RECOMMENDED BY DOLL DRESSER. SHE STATED, "I JUST WANT TO GO HOME. I'VE BEEN HERE 12 DAYS. I MIGHT JUST GO HOME AND SLEEP FOR THE NIGHT AND GO TO THE ER TOMORROW UNLESS IT GETS BAD." EXPLAINED HOME MEDS. IV REMOVED, TIP INTACT. PATIENT DISCHARGED VIA WHEELCHAIR BY CLAUDIA HERNANDEZ; ACCOMPANIED BY SPOUSE. ALL BELONGINGS SENT WITH PATIENT.
--- NOTE | 2018-05-21 08:37 | MORECARE ---
CASE MANAGEMENT DISCHARGE SUMMARY PATIENT: CYNDIE CAMACHO UNIT: [id number] ADM DATE: 05/09/18 AGE: 32 : 85 SEX: F ROOM/BED: D.1205 AUTHOR: LESLY ALBERTS PHYSICIAN: REFERRING PHYSICIAN: DOLORES ALVAREZ MD DATE OF SERVICE: 05/21/18 Discharge Plan Patient Name: CYNDIE CAMACHO Facility: [facility]:[place] : 1985 Planned Disposition: Anticipated Discharge Date: Discharge Date: 05/18/2018 Expected LOS: Initial Reviewer: [email or web address] Initial Review Date: 05/15/2018 Generated: 05/21/18 9:36 am Comments DCP- Discharge Planning Updated by [id number]: Nickie Smith on 05/15/18 11:[address] Patient Name: CYNDIE CAMACHO Admission Status: ER Accout number: [id number] Admission Date: 05-09-2018 : 1985 Admission Diagnosis:FEVER, UNSPECIFIED Attending: DOLORES ALVAREZ Current LOS: 6 Anticipated DC Date: Planned Disposition: Primary Insurance: [employer] OUT OF STATE Discharge Planning Comments: CM MET WITH PATIENT ABOUT DC PLANNING/NEEDS. [facility] DOESN'T KNOW OF ANY NEEDS AT THISTIME. [facility] HOME IS SAFE AND SHE LIVES THERE WITH HER FAMILY. CM WILL FOLLOW AND ASSIST NEEDED WITH DC PLANNING/NEEDS. Bearing Grinder: Nickie Smith DCPIA - Discharge Planning Initial Assessment Updated by [id number]: Nickie Smith on 05/15/18 12:22 pm * Is the patient Alert and Oriented? Yes * PCP MARIUSZ * Pharm[facility] * Preadmission Environment Home with Family * ADLs Independent * Equipment None * List name and contact numbers for known caregivers / representatives who currently or will assist patient after discharge: GAYATRI, , * Community resources currently utilized None * Can the patient safely return to the preadmission environment? Yes * Has this patient been hospitalized within the prior 30 days at any hospital? No Last DP export: 05/15/18 11:29 a Patient Name: CYNDIE CAMACHO Page [id number] at 0837 All edits/amendments must be made on the electronic document DICTATION DATE: 05/21/1836 SCHOOL PSYCHOLOGY PROFESSOR: BE 05/21/1836 RPT#: [id number] DC DATE:05/18/18 STATUS: DIS IN [facility] [address] [place] [address] END OF REPORT
== END 2018-05-18 16:33 | disposition home or self-care (01) | DRG 152 ==
LOC: D.ER 12:31 → D.M3 18:56 → D.EDHOLD 18:56 → OBSVTIME 18:57 → D.M3 19:55
PROVIDERS: Family Medicine; Internal Medicine Nephrology; Student in an Organized Health Care Education/Training Program; ADMIT Emergency Medicine
PROC: 009U3ZZ Drainage of Spinal Canal, Percutaneous Approach (ICD-10-PCS; principal; 2018-05-07)
DX: H70.10 Chronic mastoiditis, unspecified ear (principal); K85.90 Acute pancreatitis without necrosis or infection, unspecified; J21.9 Acute bronchiolitis, unspecified; J02.0 Streptococcal pharyngitis; R51 Headache; N83.209 Unspecified ovarian cyst, unspecified side

== ENCOUNTER 2018-06-25 12:28 | Emergency (ER) | payer BC, MEDICAID ==
[~2018-06-25] VITALS: Ht 165.1 cm; Wt 61.4 kg
[~2018-06-25 12:28] MED LIST: CREON (PANCRELI1 CAP PO; NEURONTIN 300300 MG PO; OMEPRAZOLE20 M1 PO; PROTONIX40 MG PO; TENORMIN25 MG PO
[2018-06-25 12:33] VITALS: Ht 165.1 cm; Wt 61.4 kg
[2018-06-25 12:56] LABS: BASOPHILS 0.3 % (0-2); EOSINOPHILS 0.4 % (0-7); HEMATOCRIT 39.9 % (36.0-48.0); HEMOGLOBIN 13.6 g/dL (12-16); IMMATURE GRANULOCYTES 0.2 % (0-5); LYMPHOCYTES 27.8 % (15-50); MCH 28.2 pg (26.0-34.0); MCHC 34.1 g/dL (31.0-37.0); MCV 82.8 fL (80.0-100.0); MEAN PLATELET VOLUME 9.6 fL (7.4-10.4); MONOCYTES 7.1 % (2-11); NEUTROPHILS 64.2 % (40-80); RBC 4.82 10x6/uL (4.00-5.40); RDW 12.6 % (11.5-14.5)
[2018-06-25 13:02] LABS: PLATELET COUNT 344 10x3/uL (130-400)
[2018-06-25 13:12] LABS: ALBUMIN 4.5 g/dL (3.4-5.0); ALKALINE PHOSPHATASE 67 U/L (46-116); ALT (SGPT) 47 U/L (10-68); BILIRUBIN - TOTAL 0.52 mg/dL (0.2-1.3); CALC OSMOLALITY 275 mosm/kg (275-300); CALCIUM 9.4 mg/dL (8.5-10.1); CARBON DIOXIDE 23.2 mmol/L (21.0-32.0); CHLORIDE - SERUM 102 mmol/L (98-107); CREATININE - SERUM 0.9 mg/dL (0.6-1.3); GLUCOSE 97 mg/dL (74-106); POTASSIUM - SERUM 3.9 mmol/L (3.5-5.1); PROTEIN - SERUM 8.6 g/dL (6.4-8.2); SODIUM 138 mmol/L (136-145); UREA NITROGEN 13 mg/dL (7-18); eGFR NON AFRICAN AMERICAN 77 mL/min (90-120)
[2018-06-25 13:15] LABS: AMYLASE - SERUM 161 U/L (25-115); LIPASE 719 U/L (73-393); TROPONIN-I < 0.017 ng/mL (0.000-0.060)
[2018-06-25 16:30] LABS: APPEARANCE CLEAR (CLEAR); BILIRUBIN NEGATIVE (NEGATIVE); COLOR YELLOW (YELLOW); GLUCOSE NEGATIVE (NEGATIVE); KETONE MODERATE mg/dL (NEGATIVE); NITRITE NEGATIVE (NEGATIVE); PROTEIN NEGATIVE (NEGATIVE); UROBILINOGEN NORMAL (NORMAL)
[2018-06-25 20:54] VITALS: BP 112/68
== END 2018-06-25 20:55 | disposition other institution (70) ==
LOC: D.ER 12:28
PROVIDERS: Emergency Medicine
DX: K86.1 Other chronic pancreatitis (principal); E86.0 Dehydration; R11.2 Nausea with vomiting, unspecified

== ENCOUNTER 2018-08-18 11:27 | Emergency (ER) | payer BC, MEDICAID ==
[~2018-08-18] VITALS: Ht 165.1 cm; Wt 63.6 kg
[2018-08-18 11:32] VITALS: Ht 165.1 cm; Wt 63.6 kg
[2018-08-18 12:06] LABS: BASOPHILS 0.2 % (0-2); EOSINOPHILS 1.1 % (0-7); IMMATURE GRANULOCYTES 0.2 % (0-5); LYMPHOCYTES 21.7 % (15-50); MCH 27.8 pg (26.0-34.0); MCHC 33.3 g/dL (31.0-37.0); MCV 83.3 fL (80.0-100.0); MEAN PLATELET VOLUME 9.9 fL (7.4-10.4); MONOCYTES 12.5 % (2-11); NEUTROPHILS 64.3 % (40-80); PLATELET COUNT 307 10x3/uL (130-400); RBC 4.68 10x6/uL (4.00-5.40); RDW 13.3 % (11.5-14.5)
[2018-08-18 12:16] LABS: APPEARANCE CLEAR (CLEAR); BILIRUBIN NEGATIVE (NEGATIVE); COLOR STRAW (YELLOW); GLUCOSE NEGATIVE (NEGATIVE); KETONE NEGATIVE (NEGATIVE); NITRITE NEGATIVE (NEGATIVE); PROTEIN NEGATIVE (NEGATIVE); SPECIFIC GRAVITY 1.005 (1.005-1.020); UROBILINOGEN NORMAL (NORMAL)
[2018-08-18 12:21] LABS: ALBUMIN 4.1 g/dL (3.4-5.0); ALKALINE PHOSPHATASE 72 U/L (46-116); ALT (SGPT) 23 U/L (10-68); AMYLASE - SERUM 81 U/L (25-115); CALC OSMOLALITY 276 mosm/kg (275-300); CALCIUM 9.4 mg/dL (8.5-10.1); CARBON DIOXIDE 27.8 mmol/L (21.0-32.0); CHLORIDE - SERUM 104 mmol/L (98-107); CREATININE - SERUM 0.8 mg/dL (0.6-1.3); GLUCOSE 106 mg/dL (74-106); LIPASE 318 U/L (73-393); POTASSIUM - SERUM 3.8 mmol/L (3.5-5.1); PROTEIN - SERUM 8.2 g/dL (6.4-8.2); SODIUM 140 mmol/L (136-145); UREA NITROGEN 8 mg/dL (7-18); eGFR NON AFRICAN AMERICAN 88 mL/min (90-120)
[2018-08-18 17:04] VITALS: BP 126/69
== END 2018-08-18 17:21 | disposition home or self-care (01) ==
LOC: D.ER 11:27
PROVIDERS: Family Medicine
DX: K86.1 Other chronic pancreatitis (principal)

== ENCOUNTER 2018-12-04 13:04 | Inpatient (IN) | payer BC, MEDICAID ==
[~2018-12-04] VITALS: Ht 165.1 cm; Wt 63.5 kg
--- NOTE | 2018-12-04 13:30 | NUR ---
PATIENT HAS ARRIVED TO THE FLOOR. HE IS A DIRECT ADMIT FROM DR ABAD OFFICE. HE HAS BEEN ADMITTED FOR CHRONIC PANCREATITIS. HE CAME TO THE FLOOR BY WHEELCHAIR. HE ARRIVED WITH FAMILY.
[2018-12-04 14:02] VITALS: BP 98/69; BMI 23.3
--- NOTE | 2018-12-04 14:19 | NUR ---
WAITING ON VASCULAR NURSE TO ASSESS PATIENT FOR CENTRAL LINE PLACEMENT.
--- NOTE | 2018-12-04 14:55 | NUR ---
WAITING ON PORT PLACEMENT FOR THIS PATIENT. CONSULT FOR OBGYN CALLED IN BY ZOE. PATIENT REPORTS THAT SHE HAS OVARIAN CYSTS, AND SHE HAS A HISTORY OF CYSTS. WORKING ON GETTING VENOUS ACCESS. THERE IS AN ORDER FOR A PORT PLACEMENT. DR HANNA REQUESTED A PERIPHERAL BE PLACED, OR BE ATTEMPTED BEFORE HE WILL COME PLACE A PORT. VASCULAR ACCESS NURSE IS AT BEDSIDE NOW AND SHE IS ABLE TO GET ACCESS AND ASSIST LAB WITH BLOOD DRAW.
[2018-12-04 15:19] LABS: BASOPHILS 0.3 % (0-2); EOSINOPHILS 0.6 % (0-7); HEMATOCRIT 32.8 % (36.0-48.0); HEMOGLOBIN 10.9 g/dL (12-16); IMMATURE GRANULOCYTES 0.2 % (0-5); LYMPHOCYTES 34.3 % (15-50); MCH 26.3 pg (26.0-34.0); MCHC 33.2 g/dL (31.0-37.0); MCV 79.2 fL (80.0-100.0); MEAN PLATELET VOLUME 9.8 fL (7.4-10.4); MONOCYTES 9.5 % (2-11); NEUTROPHILS 55.1 % (40-80); PLATELET COUNT 226 10x3/uL (130-400); RBC 4.14 10x6/uL (4.00-5.40); RDW 13.6 % (11.5-14.5); WBC 6.3 10x3/uL (4.8-10.8)
[2018-12-04 15:35] LABS: % SATURATION 18 % (15-55); IRON 77 ug/dl (35-150); TOTAL IRON BIND CAPACITY 418 ug/dl (260-445); UNSAT IRON BIND CAPACITY 341 ug/dl (150-375)
[2018-12-04 15:46] LABS: ALBUMIN 3.7 g/dL (3.4-5.0); ALKALINE PHOSPHATASE 48 U/L (46-116); ALT (SGPT) 10 U/L (10-68); AMYLASE - SERUM 74 U/L (25-115); BILIRUBIN - TOTAL 0.32 mg/dL (0.2-1.3); CALC OSMOLALITY 276 mosm/kg (275-300); CALCIUM 8.6 mg/dL (8.5-10.1); CARBON DIOXIDE 24.4 mmol/L (21.0-32.0); CHLORIDE - SERUM 107 mmol/L (98-107); CREATININE - SERUM 0.7 mg/dL (0.6-1.3); FERRITIN 8 ng/mL (3-244); GLUCOSE 85 mg/dL (74-106); LIPASE 280 U/L (73-393); POTASSIUM - SERUM 3.9 mmol/L (3.5-5.1); PROTEIN - SERUM 6.9 g/dL (6.4-8.2); SODIUM 140 mmol/L (136-145); UREA NITROGEN 9 mg/dL (7-18); eGFR NON AFRICAN AMERICAN > 90 mL/min (90-120)
[2018-12-04 16:00] VITALS: BP 103/61
[2018-12-04 16:14] VITALS: BP 103/61
--- NOTE | 2018-12-04 19:06 | NUR ---
NICO FROM U.S AT BED SIDE HOWEVER PT STATED THAT HER ABD IS HURTING TOO BAD TO HAVE U.S DONE TONIGHT AND ASKED IF COULD WAIT UNTIL TOMORROW MORNING. WILL MAKE PT NPO AFTER MN FOR ABD US IN AM.
--- NOTE | 2018-12-04 21:13 | NUR ---
BACK TO ROOM FROM ULTRASOUND.
[2018-12-04] MEDS ORDERED: DILAUDID2 MG PO (22:07)
[2018-12-04] MEDS ORDERED: SENNA LAXATIVE8.6 MG PO (22:10)
--- NOTE | 2018-12-04 23:29 | NUR ---
CALLED RESULTS OF TRANS VAG. U.S. TO DR RETANA. NO NEW ORDERS GIVEN AT THIS TIME.
[2018-12-05] VITALS: BP 97/64
[2018-12-05 04:00] VITALS: BP 113/54
[2018-12-05 05:27] LABS: BASOPHILS 0.3 % (0-2); EOSINOPHILS 1.5 % (0-7); HEMATOCRIT 32.9 % (36.0-48.0); HEMOGLOBIN 10.7 g/dL (12-16); IMMATURE GRANULOCYTES 0.2 % (0-5); LYMPHOCYTES 37.1 % (15-50); MCH 26.4 pg (26.0-34.0); MCHC 32.5 g/dL (31.0-37.0); MCV 81.2 fL (80.0-100.0); MEAN PLATELET VOLUME 10.3 fL (7.4-10.4); MONOCYTES 10.4 % (2-11); NEUTROPHILS 50.5 % (40-80); PLATELET COUNT 236 10x3/uL (130-400); RBC 4.05 10x6/uL (4.00-5.40); RDW 13.7 % (11.5-14.5); WBC 6.2 10x3/uL (4.8-10.8)
[2018-12-05 06:00] LABS: ALBUMIN 3.5 g/dL (3.4-5.0); ALKALINE PHOSPHATASE 48 U/L (46-116); ALT (SGPT) 11 U/L (10-68); AMYLASE - SERUM 70 U/L (25-115); CALC OSMOLALITY 278 mosm/kg (275-300); CARBON DIOXIDE 23.6 mmol/L (21.0-32.0); CHLORIDE - SERUM 106 mmol/L (98-107); CREATININE - SERUM 0.7 mg/dL (0.6-1.3); GLUCOSE 97 mg/dL (74-106); LIPASE 278 U/L (73-393); POTASSIUM - SERUM 3.6 mmol/L (3.5-5.1); PROTEIN - SERUM 6.8 g/dL (6.4-8.2); SODIUM 141 mmol/L (136-145); UREA NITROGEN 8 mg/dL (7-18); eGFR NON AFRICAN AMERICAN > 90 mL/min (90-120)
--- NOTE | 2018-12-05 08:00 | NUR ---
REPORT RECIEVED. PT LYING SEMI FOWLERS IN BED. RR EVEN AND UNLABORED. NO DISTRESS NOTED. PT IS REMINDED OF NPO STATUS DUE TO PORT PLACEMENT PROCEDURE. L WRIST IV INFUSING LR @125 AND ZOFRAN @4.8. PT IS A&O. BED LOCKED AND IN LOWEST POSITION. CALL LIGHT WITHIN REACH. WILL CTM.
[2018-12-05 08:21] VITALS: BP 127/72
[2018-12-05 09:30] LABS: APPEARANCE CLEAR (CLEAR); BILIRUBIN NEGATIVE (NEGATIVE); COLOR STRAW (YELLOW); GLUCOSE NEGATIVE (NEGATIVE); KETONE SMALL mg/dL (NEGATIVE); NITRITE NEGATIVE (NEGATIVE); PROTEIN NEGATIVE (NEGATIVE); SPECIFIC GRAVITY 1.005 (1.005-1.020); UROBILINOGEN NORMAL (NORMAL)
--- NOTE | 2018-12-05 10:13 | NUR ---
SPOKE WITH HERRERA ABOUT PTS CONSISTENT N/V. RECIEVED TEL ORDER FOR PHENEGREN 25MG IM Q6 PRN FOR BREAKTHROUGH N/V.
--- NOTE | 2018-12-05 12:26 | NUR ---
LOST PIV TO L WRIST. CATH TIP FULLY INTACT. PT SCHEDULED FOR PORT PLACEMENT SO OR SAID THEY WOULD PREOP PT ONCE IN OR.
--- NOTE | 2018-12-05 13:15 | NUR ---
PT TAKEN TO OR FOR PORT PLACEMENT AT THIS TIME.
[2018-12-05 13:44] VITALS: Ht 165.1 cm; Wt 63.5 kg
--- NOTE | 2018-12-05 14:18 | NUR ---
I have reviewed this patient and I concur with the Shift Assessment completed by the Licensed Practical Nurse today this shift.
--- NOTE | 2018-12-05 15:36 | NUR ---
RECEIVED PT BACK FROM RECOVERY. VSS. WILL CTM
[2018-12-05 20:00] VITALS: BP 100/58
[2018-12-06] VITALS: BP 103/58
[2018-12-06 04:30] VITALS: BP 109/53
[2018-12-06 06:11] LABS: BASOPHILS 0.1 % (0-2); EOSINOPHILS 0 % (0-7); HEMATOCRIT 27.6 % (36.0-48.0); IMMATURE GRANULOCYTES 0.1 % (0-5); LYMPHOCYTES 17.7 % (15-50); MCH 26.5 pg (26.0-34.0); MCHC 32.6 g/dL (31.0-37.0); MCV 81.4 fL (80.0-100.0); MEAN PLATELET VOLUME 10.9 fL (7.4-10.4); MONOCYTES 10.3 % (2-11); NEUTROPHILS 71.8 % (40-80); RBC 3.39 10x6/uL (4.00-5.40); RDW 13.9 % (11.5-14.5); WBC 7.6 10x3/uL (4.8-10.8)
[2018-12-06 06:44] LABS: ALKALINE PHOSPHATASE 43 U/L (46-116); ALT (SGPT) 11 U/L (10-68); AMYLASE - SERUM 55 U/L (25-115); BILIRUBIN - TOTAL 0.17 mg/dL (0.2-1.3); CALC OSMOLALITY 276 mosm/kg (275-300); CALCIUM 8.4 mg/dL (8.5-10.1); CARBON DIOXIDE 21.2 mmol/L (21.0-32.0); CHLORIDE - SERUM 106 mmol/L (98-107); CREATININE - SERUM 0.6 mg/dL (0.6-1.3); GLUCOSE 112 mg/dL (74-106); LIPASE 176 U/L (73-393); PROTEIN - SERUM 5.6 g/dL (6.4-8.2); SODIUM 139 mmol/L (136-145); UREA NITROGEN 6 mg/dL (7-18); eGFR NON AFRICAN AMERICAN > 90 mL/min (90-120)
[2018-12-06 07:01] LABS: PLATELET COUNT 185 10x3/uL (130-400)
--- NOTE | 2018-12-06 07:45 | NUR ---
ROUNDING DONE WITH PATIENT REQUESTING PAIN MEDICATION. IV DILAUDID GIVEN PER REQUEST. PATIENT UP TO RESTROOM TO VOID. SPOUSE AT BEDSIDE. ON ROOM AIR. ON HEART MONITOR SHOWING SR, HR 82. LEFT FA PIV SEEN WITH LR INFUSING AT 200 CC/HR AND ZOFRAN INFUSING AT 4.7 CC/HR. LEFT CHEST DRESSING SEEN, C/D/I FROM IP PLACED YESTERDAY. GLASSES ON. WILL CPOC.
[2018-12-06 08:59] VITALS: BP 113/59
--- NOTE | 2018-12-06 12:39 | NUR ---
PATIENT IS REFUSING HER CREON SHE IS TO TAKE 3 TABS WITH EACH MEAL. SHE STATES THAT SHE ONLY WANTS ONE, THAT IF SHE TAKES THREE AND NOT WITH REGULAR FOOD, SHE MAY BECOME HYPOGLYCEMIC.
--- NOTE | 2018-12-06 13:15 | NUR ---
DR RETANA IN TO SEE PATIENT.
--- NOTE | 2018-12-06 13:50 | NUR ---
PATIENT REQUESTED THAT I LOOK AT HER LEFT ARMPIT/OP SITE. BY COMPARISON, BILATERAL ARMPITS LOOK THE SAME. MAYBE SOME SLIGHT REDNESS SEEN. ICE PACK MADE AND GIVEN TO PATIENT.
--- NOTE | 2018-12-06 14:25 | MORECARE ---
CASE MANAGEMENT DISCHARGE SUMMARY PATIENT: CYNDIE WOO UNIT: [id number] ADM DATE: 12/04/18 AGE: 33 : 85 SEX: F ROOM/BED: D.2126 AUTHOR: LESLY ALBERTS PHYSICIAN: REFERRING PHYSICIAN: JOHN HUERTA MD DATE OF SERVICE: 12/06/18 Discharge Plan Patient Name: CYNDIE WOO [facility] [facility] 1985 Planned Disposition: Home Health Service Anticipated Discharge Date: 12/08/18 Discharge Date: Expected LOS: 4 Initial Reviewer: [email or web address] Initial Review Date: 12/04/2018 Generated: 12/06/18 3:25 pm DCPIA - Discharge Planning Initial Assessment Updated by [email or web address]: Julieta Clark on 12/06/18 2:21 pm * Is the patient Alert and Oriented? Yes * How many steps to enter\exit or inside your home? three * PCP Dr. Huerta * Pharmacy [facility] near the [facility] * Preadmission Environment Home with Family * ADLs Partial Dependent * Partial ADLs (Assistance needed) Ambulation * Equipment Walker Wheelchair * List name and contact numbers for known caregivers / representatives who currently or will assist patient after discharge: Raphael Woo - - [phone] Georgina Disla - mother - [phone] * Verbal permission to speak to the caregivers and representatives has been obtained from the patient. Yes * Community resources currently utilized Home Health * Please name any agencies selected above. Current with [facility]. * Additional services required to return to the preadmission environment? No * Can the patient safely return to the preadmission environment? Yes * Has this patient been hospitalized within the prior 30 days at any hospital? Yes Patient Name: CYNDIE WOO Page [phone] at 1425 All edits/amendments must be made on the electronic document DICTATION DATE: 12/06/18 1425 INTERNET RESEARCHER: BE 12/06/18 1425 RPT#: [id number] DC DATE: STATUS: ADM IN [facility] [address] [place] [address] END OF REPORT
--- NOTE | 2018-12-06 14:34 | MORECARE ---
CASE MANAGEMENT DISCHARGE SUMMARY PATIENT: CYNDIE WOO UNIT: [id number] ADM DATE: 12/04/18 AGE: 33 : 85 SEX: F ROOM/BED: D.3296 AUTHOR: LESLY ALBERTS PHYSICIAN: REFERRING PHYSICIAN: JOHN HUERTA MD DATE OF SERVICE: 12/06/18 Discharge Plan Patient Name: CYNDIE WOO Facility: [facility]:[place] : 1985 Planned Disposition: Home Health Service Anticipated Discharge Date: 12/08/18 Discharge Date: Expected LOS: 4 Initial Reviewer: [email or web address] Initial Review Date: 12/04/2018 Generated: 12/06/18 3:34 pm Comments DCP- Discharge Planning Updated by [email or web address]: Julieta Clark on 12/06/18 1:[address] Patient Name: CYNDIE WOO Admission Status: Elective Accout number: [id number] Admission Date: 12-04-2018 : 1985 Admission Diagnosis:ACUTE PANCREATITIS WITHOUT NECROSIS OR INFECTION, UNSP Attending: JOHN HUERTA Current LOS: 2 Anticipated DC Date: 12-08-2018 Planned Disposition: Home Health Service Primary Insurance: [employer] OUT OF STATE Discharge Planning Comments: DC PLAN: DC NEEDS: CM met with patient to complete initial dc planning assessment. CM educated patient on the CM role and verbal consent given by patient to complete assessment. CM verified patient's address, phone number, and emergency contact phone numbers. Patient lives at home with her . Patient currently has [facility] Services and wishes to resume at discharge. ERIN form signed by patient for resumption of Home Health. Signed form placed in chart and signed form given to patient. Cm spoke to [facility] who stated she was not a current patient with [facility] since 10/23/18. Cm notified patient and informed her that we would have [place]. At discharge patient plans to return home but her wont be home until Sunday to help care for her, she feels this is a safe discharge. Patient denied further known discharge needs at this time. . Patient reports her will transport her home at time of discharge.CM will continue to follow and will assist as needed with dc plans/needs. HH order received and referral faxed to [facility]. Medical Education Specialist: Julieta Clark RN, [facility] DCPIA - Discharge Planning Initial Assessment Updated by [email or web address]: Julieta Clark on 12/06/18 2:21 pm * Is the patient Alert and Oriented? Yes * How many steps to enter\exit or inside your home? three * PCP Dr. Huerta * [place] [facility] [place] * Preadmission Environment Home with Family * ADLs Partial Dependent * Partial ADLs (Assistance needed) Ambulation * Equipment Walker Wheelchair * List name and contact numbers for known caregivers / representatives who currently or will assist patient after discharge: Raphael Woo - - [phone] Georgina Disla - mother - [phone] * Verbal permission to speak to the caregivers and representatives has been obtained from the patient. Yes * Community resources currently utilized Home Health * Please name any agencies selected above. Current with [facility]. * Additional services required to return to the preadmission environment? No * Can the patient safely return to the preadmission environment? Yes * Has this patient been hospitalized within the prior 30 days at any hospital? Yes External Providers External Provider: OTHER-OTHER Next Contact Date: Service Request Date: Service Type: Resolution: Reviewer: Comments: Last DP export: 12/06/18 1:25 pm Patient Name: CYNDIE WOO Page [id number] at 1434 All edits/amendments must be made on the electronic document DICTATION DATE: 12/06/18 143 PHOTOFLASH POWDER MIXER: BE 12/06/18 1434 RPT#: [id number] OR DATE: STATUS: ADM IN [facility] [address] [place] [address] END OF REPORT
[2018-12-06 16:17] VITALS: BP 124/71
--- NOTE | 2018-12-06 17:47 | NUR ---
AWAITING CREAM OF WHEAT TO BE BROUGHT UP SO DONALDO CAN TAKE HER CREON.
[2018-12-06 20:00] VITALS: BP 118/71
--- NOTE | 2018-12-06 20:24 | NUR ---
INITAIL ROUNDS COMPELTED AT 1905 HRS. PT DENIED ANY DISCOMFORT. ASSESSMENT COMPLETED AT 1950 HRS. VSS. SR PER CM HR 78. ALERT AND ORIENTED TO PERSON, PLACE AND TIME. MARSHALL. IV TO L WRIST WITH NS AT 125CC/HR AND ZOFRANA T 4.7CC/HR. IV PATENT. L CHEST INFUSAPORT ACCESSED. ORDERS NOT TO USE. DILAUDID 1.5MG SIVP GIVEN AT 1956 FOR C/O UPPER ABD PAIN 11/06. PT CURRENTLY WATCHING TV. SR UP X2, CALL LIGHT WITHIN REACH.
--- NOTE | 2018-12-06 22:40 | NUR ---
PT WATCHING TV. NO DISTRESS NOTED. FAMILY AT BEDSIDE.
--- NOTE | 2018-12-07 00:26 | NUR ---
DILAUDID 1.5MG SIVP GIVEN FOR C/O CHEST AND ABD PAIN. SR UP X2, CALL LIGHT WITHIN REACH.
[2018-12-07 00:30] VITALS: BP 120/78
--- NOTE | 2018-12-07 01:59 | NUR ---
PT RESTING WITH EYES CLOSED. RESP EVEN AND REGULAR. SR UP X2, CALL LIGHT WITHIN REACH.
--- NOTE | 2018-12-07 04:23 | NUR ---
PT AWAKE; NO DISTRESS NOTED. SR UP X2, CALL LIGHT WITHIIN REACH.
[2018-12-07 04:30] VITALS: BP 117/73
--- NOTE | 2018-12-07 04:50 | NUR ---
DILAUDID 1.5MG SIVP GIVEN FOR C/O SEVERE ABD PAIN AND CP AROUND NEW INFUSAPORT. SR UP X2, CALL LIGHT WITHIN REACH.
[2018-12-07 06:28] LABS: ALKALINE PHOSPHATASE 44 U/L (46-116); ALT (SGPT) 13 U/L (10-68); AMYLASE - SERUM 62 U/L (25-115); CALC OSMOLALITY 280 mosm/kg (275-300); CALCIUM 7.9 mg/dL (8.5-10.1); CARBON DIOXIDE 25.4 mmol/L (21.0-32.0); CHLORIDE - SERUM 108 mmol/L (98-107); GLUCOSE 95 mg/dL (74-106); LIPASE 342 U/L (73-393); POTASSIUM - SERUM 3.8 mmol/L (3.5-5.1); PROTEIN - SERUM 5.6 g/dL (6.4-8.2); SODIUM 142 mmol/L (136-145); UREA NITROGEN 6 mg/dL (7-18); eGFR NON AFRICAN AMERICAN 87 mL/min (90-120)
[2018-12-07 06:30] LABS: CREATININE - SERUM 0.8 mg/dL (0.6-1.3)
--- NOTE | 2018-12-07 06:45 | NUR ---
VSS THROUGHTOUT NIGHT. SR PER CM. PT STATED DILAUDID HELPED CONTROL PAIN. NEEDS MET;WILL CONTINUE TO MONITOR.
--- NOTE | 2018-12-07 07:30 | NUR ---
ASSESSMENT COMPLETED. ALERT AND ORIENTED. TELEMERTY SHOWS SR 91. LEFT HAND IV WITH ZOFRAM AT 47 AND LR AT 125. UP AB TABATHA. SR UP WITH CALL LIGHT IN REACH. WILL MONITOR
[2018-12-07 08:43] VITALS: BP 119/72
[2018-12-07 08:45] LABS: BASOPHILS 0.3 % (0-2); EOSINOPHILS 2.6 % (0-7); HEMOGLOBIN 9.6 g/dL (12-16); IMMATURE GRANULOCYTES 0.1 % (0-5); LYMPHOCYTES 34.7 % (15-50); MCH 26.4 pg (26.0-34.0); MCV 82.4 fL (80.0-100.0); MEAN PLATELET VOLUME 10.3 fL (7.4-10.4); MONOCYTES 10.5 % (2-11); NEUTROPHILS 51.8 % (40-80); PLATELET COUNT 210 10x3/uL (130-400); RBC 3.64 10x6/uL (4.00-5.40); RDW 14.2 % (11.5-14.5); WBC 7.3 10x3/uL (4.8-10.8)
[2018-12-07 12:13] VITALS: BP 122/81
--- NOTE | 2018-12-07 13:06 | NUR ---
C/O PAIN AT LEVEL 8. DILAUDID 1.5 IV GIVEN FOR RELIEF.
--- NOTE | 2018-12-07 18:44 | NUR ---
LYING QUIETLY WITH FAMILY IN ROOM. NO NEEDS VOICED. CALL LIGHT IN REACHTELEMERTY SHOWS SR
--- NOTE | 2018-12-07 19:15 | NUR ---
INITIAL ROUNDS COMPLETED. PT DENIES ANY DISCOMFORT. SR UP X2, CALL LIGHT WITHIN REACH.
[2018-12-07 20:00] VITALS: BP 106/62; BP 122/64
--- NOTE | 2018-12-07 20:02 | NUR ---
ASSESSMENT COMPLETED AT 1940 HRS. PT STATES ABD AND CP LEVEL 6-710. INFORMED NET PAIN MED DOSE AT 2100 HRS. PT STATED UNDERSTANDING. LUNGS DIMINISHED IN BASES BILAT. ST PER CM HR 100. L ANERIOR CHEST INFUSAPORT ACCESSED BUT ORDERS NOT TO USE. SITE SLIGHTLY RED,SWOLLEN AND TENDER TO TOUCH. ABD TENDER TO TOUCH WITH ACTIVE BS NOTED. IV TO L WRIST WITH LR AT 125CC/HR AND ZOFRAN 4.7CC/HR. IV PATENT. FAMILY AT BEDSIDE. SR UP X2,CALL LIGHT WITHIN REACH.
--- NOTE | 2018-12-07 21:29 | NUR ---
PT AMBULATED AROUND UNIT WITH WALKER. GAIT EVEN AND STEADY. DILAUDID 1.5MG SIVP GIVEN FOR C/O SEVERE ABD AND CP. PM MEDS GIVEN. SR UP X2,CALL LIGHT WITHIN REACH.
--- NOTE | 2018-12-08 00:19 | NUR ---
PT RESTING WITH EYES CLOSED. RESP EVEN AND REGULAR. SR UP X2,CALL LIGHT WITHIN REACH.
[2018-12-08 00:30] VITALS: BP 122/64
--- NOTE | 2018-12-08 02:18 | NUR ---
PT RESTING WITH EYES CLOSED. RESP EVEN AND REGULAR. SR UP X2, CALL LIGHT WITHIN REACH AND SPOUSE AT BEDSIDE.
[2018-12-08 04:00] VITALS: BP 106/64
--- NOTE | 2018-12-08 04:05 | NUR ---
PT RESTING WITH EYES CLOSED. RESP EVEN AND REGULAR. SR UP X2, CALL LIGHT WITHIN REACH.
--- NOTE | 2018-12-08 05:33 | NUR ---
ADMISSION ASSESSMENT, HISTORY AND HOME MED LIST COMPLETED. PT DOES NOT KNOWN MONTH OR YEAR OR WHICH MEDS SHE IS TAKING AND LAST DOSE. IV TO LFA SL. BUISES NOTED TO BILAT ARMS. SR PER CM HR 61. VSS. NO SLID SOCKS PLACED. PT REFUSES [facility] GOWN. BED ALARM ON. SR UP X2, CALL LIGHT WITHIN REACH.
--- NOTE | 2018-12-08 06:16 | NUR ---
VSS THORUGHOUT NIGHT. SR PER CM. PT STATES IV DILAUDID MAKES HER PAIN TOLERABLE. NEEDS MET; WILL CONTINUE TO MONITOR.
[2018-12-08 06:22] LABS: BASOPHILS 0.2 % (0-2); EOSINOPHILS 3.7 % (0-7); HEMATOCRIT 30.5 % (36.0-48.0); HEMOGLOBIN 9.8 g/dL (12-16); IMMATURE GRANULOCYTES 0.2 % (0-5); LYMPHOCYTES 28.8 % (15-50); MCH 26.6 pg (26.0-34.0); MCHC 32.1 g/dL (31.0-37.0); MCV 82.7 fL (80.0-100.0); MEAN PLATELET VOLUME 10.6 fL (7.4-10.4); NEUTROPHILS 55.1 % (40-80); PLATELET COUNT 201 10x3/uL (130-400); RBC 3.69 10x6/uL (4.00-5.40); WBC 6.6 10x3/uL (4.8-10.8)
[2018-12-08 06:32] LABS: ALBUMIN 3.2 g/dL (3.4-5.0); ALKALINE PHOSPHATASE 50 U/L (46-116); AMYLASE - SERUM 58 U/L (25-115); BILIRUBIN - TOTAL 0.18 mg/dL (0.2-1.3); CALC OSMOLALITY 274 mosm/kg (275-300); CALCIUM 8.4 mg/dL (8.5-10.1); CARBON DIOXIDE 27.9 mmol/L (21.0-32.0); CHLORIDE - SERUM 105 mmol/L (98-107); CREATININE - SERUM 0.7 mg/dL (0.6-1.3); GLUCOSE 85 mg/dL (74-106); LIPASE 259 U/L (73-393); POTASSIUM - SERUM 3.4 mmol/L (3.5-5.1); PROTEIN - SERUM 6.4 g/dL (6.4-8.2); SODIUM 140 mmol/L (136-145); UREA NITROGEN 5 mg/dL (7-18); eGFR NON AFRICAN AMERICAN > 90 mL/min (90-120)
[2018-12-08 06:34] LABS: ALT (SGPT) 25 U/L (10-68)
--- NOTE | 2018-12-08 07:56 | NUR ---
ALERT AND ORIENTED. TELEMERTY SHOWS SR. IV TO LEFT HAND WITH LR AT 125 AND ZOFRAN AT 4.7. LUNGS CLEAR. UP AB TABATHA. FAMILY AT BEDSIDE. CALL LIGHT IN REACH
[2018-12-08 09:06] VITALS: BP 111/66
[2018-12-08 11:43] VITALS: BP 117/74
[2018-12-08 20:00] VITALS: BP 102/57
--- NOTE | 2018-12-08 20:11 | NUR ---
INITIAL ROUNDS COMPLETED AT 1910 HRS. PT STATES PAIN LEVEL NOW 5/10. INFORMED NEXT PAIN MED DUE AT 2100 HRS. ASSESSMENT COMPLETED AT 1945 HRS. VSS. SR PER CM HR 93. ALERT AND ORIENTED TO PERSON, PLACE AND TIME. MARSHALL. L CHEST INFUSAPORT TENDER TO TOUCH. INFUSAPORT NOT IN USE. LUNGS DIMININISHED IN BASES BILAT. IV TO LAC SL. PT REFUSES ANY ACCESS TO R ARM. ABD SOFT, TENDER WITH ACTIVE BS NOTED. SR UP X2, CALL LIGHT WITHIN REACH.
--- NOTE | 2018-12-08 20:21 | NUR ---
PT AMBULATED 250 FEET WITH WALKER. GAIT STEADY. BACK TO ROOM. AT BEDSIDE.
--- NOTE | 2018-12-08 21:23 | NUR ---
PM MEDS GIVEN. DILAUDID 1.5MG SIVP GIVEN FOR C/O ABD AND CP 11/06 AND ZOFRAN 4MG SIVP FOR C/O NAUSEA. FAMILY AT BEDSIDE. CALL LIGHT WITHIN REACH.
--- NOTE | 2018-12-08 22:10 | NUR ---
PT STATES PAIN LEVEL IS 6/10. WATCHING TV. NO DISTRESS NOTED. SR UP X2, CALL LIGHT WITHIN REACH.
--- NOTE | 2018-12-08 23:52 | NUR ---
PT WATCHING TV. NO DISTRESS NOTED. SR UP X2, CALL LIGHT WITHIN REACH.
[2018-12-09 00:14] VITALS: BP 112/70
--- NOTE | 2018-12-09 02:08 | NUR ---
PT RESTING WITH EYES CLOSED. RESP EVEN AND REGULAR. AWAKES EASILY TO VERBAL STIMULI. SR UP X2, CALL LIGHT WITHIN REACH.
--- NOTE | 2018-12-09 04:07 | NUR ---
PT RESTING WTIH EYES CLOSED. RESP EVEN AND REGULAR. SR UP X2, CALL LIGHT WITHIN REACH.
[2018-12-09 04:15] VITALS: BP 98/60
--- NOTE | 2018-12-09 05:14 | NUR ---
ZOFRAN 4MG SIVP GIVEN FOR C/O NAUSEA. DILAUDID 1.5MG SIVP GIVEN FOR C/O ABD AND CP 11/06. SR UP X2, CALL LIGHT WITHIN REACH.
[2018-12-09 05:35] LABS: BASOPHILS 0.3 % (0-2); EOSINOPHILS 4.8 % (0-7); HEMATOCRIT 33.6 % (36.0-48.0); HEMOGLOBIN 10.9 g/dL (12-16); IMMATURE GRANULOCYTES 0.2 % (0-5); LYMPHOCYTES 33.5 % (15-50); MCH 26.7 pg (26.0-34.0); MCHC 32.4 g/dL (31.0-37.0); MCV 82.4 fL (80.0-100.0); MONOCYTES 12.7 % (2-11); NEUTROPHILS 48.5 % (40-80); PLATELET COUNT 184 10x3/uL (130-400); RBC 4.08 10x6/uL (4.00-5.40); WBC 6.3 10x3/uL (4.8-10.8)
[2018-12-09 05:48] LABS: ALBUMIN 3.3 g/dL (3.4-5.0); ALKALINE PHOSPHATASE 58 U/L (46-116); ALT (SGPT) 26 U/L (10-68); AMYLASE - SERUM 52 U/L (25-115); BILIRUBIN - TOTAL 0.26 mg/dL (0.2-1.3); CALCIUM 8.2 mg/dL (8.5-10.1); CARBON DIOXIDE 29.7 mmol/L (21.0-32.0); CHLORIDE - SERUM 106 mmol/L (98-107); CREATININE - SERUM 0.7 mg/dL (0.6-1.3); GLUCOSE 96 mg/dL (74-106); LIPASE 209 U/L (73-393); PROTEIN - SERUM 6.5 g/dL (6.4-8.2); SODIUM 140 mmol/L (136-145); eGFR NON AFRICAN AMERICAN > 90 mL/min (90-120)
[2018-12-09 05:49] LABS: CALC OSMOLALITY 276 mosm/kg (275-300); POTASSIUM - SERUM 4.3 mmol/L (3.5-5.1); UREA NITROGEN 8 mg/dL (7-18)
--- NOTE | 2018-12-09 06:40 | NUR ---
VSS THROUGHOUT NIGHT. SR PER CM. PT STATES DILAUDID MAKES PAIN TOLERABLE. ZOFRAN AND PHENERGAN CONTROLSS NAUSEA. NEEDS MET; WILL CONTINUE TO MONITOR.
--- NOTE | 2018-12-09 07:20 | NUR ---
PT AWAKE AND SLEEPY. HALF WOKE UP TO SAY GOOD MORNING THEN FEEL BACK ASLEEP. NO FAMILY PRESENT AT BEDSIDE AT THIS TIME. NO COMPLAINTS/CONCERNS/COMMENTS QUESTIONS STATED AT THIS TIME. NO ACUTE DISTRESS NOTED. CL IN REACH, SRX2
[2018-12-09 08:25] VITALS: BP 104/61
[2018-12-09 11:43] VITALS: BP 112/71
--- NOTE | 2018-12-09 13:15 | NUR ---
PT CALLED ME INTO HER ROOM FOR ZOFRAN AND DILAUDID. I EXPLAINED TO THE PT IT WAS NOT YET TIME FOR HER DILAUDID TO BE AVALIABLE, THAT IT WOULD BE 1330. PT STATED "WELL I KNOW YA'LL HAVE A 20 MINUTE OR SO WINDOW WHERE I CAN GET IT EARLY". PT VERBALIZES UNDERSTANDING BUT STATES SHE IS STILL FRUSTRATED BY IT
--- NOTE | 2018-12-09 14:37 | NUR ---
Nutrition Follow-up: Pt continues to report nausea and pain with clear liquid diet. Diet: Clear Liquid PO intake: ~10% Last BM: 12/04 per pt Wt: 140# Labs reviewed Meds reviewed Rec initiate Procalamine. +Ensure Clear 1x/day per pt's request. [place] food preferences within diet restrictions. RD following.
--- NOTE | 2018-12-09 15:32 | NUR ---
VASCULAR ACCESS NURSE ACCESSED PTS VERÓNICA MCFARLAND IS C/D/I, WORKING WELL WITH BLOOD RETURN AND FLUIDS RUNNING WITHOUT OCCULSION. PT CALLED ME INTO HER ROOM TO LET ME KNOW SHE HAD SLIPPED AND FALLLEN. PT WAS SITTING IN BED WHEN I CAME IN ROOM, SHE WAS HOLDING HER RIGHT WRIST. PT STATES SHE GOT UP TO USE THE RESTROOM AND SLIPPED ON THE FLOOR. ABE ANDERSON AND MYSELF CHECKED THE FLOOR SURROUNDING HER FALL AREA, THE FLOOR DRY. WE DID FIND SEVERAL SILVER GUM WRAPPERS UNDER HER FEET WHICH WERE VERY SLICK IF STEPPED ON. PT STATES THEY ARE HERS AND SHE MUST'VE DROPPED THEM. PT WAS WEARING HER PERSONAL HOME SOCKS, STATING THEYRE COMFORTABLE. SOCKS WERE NOT SKID PROOF, PROVIDED PT WITH BLUE NON SKID HOSPITAL SOCKS. CONTACTED LAN HOPPER RECIEVED ORDERS FOR CXR, AND WRIST XR. CL IN REACH, SRX2, PT IN HOSPITAL APPROPRIATE SOCKS.
--- NOTE | 2018-12-09 15:56 | MORECARE ---
CASE MANAGEMENT DISCHARGE SUMMARY PATIENT: CYNDIE WOO UNIT: [id number] ADM DATE: 12/04/18 AGE: 33 : 85 SEX: F ROOM/BED: D.7216 AUTHOR: LESLY ALBERTS PHYSICIAN: REFERRING PHYSICIAN: JOHN HUERTA MD DATE OF SERVICE: 12/09/18 Discharge Plan Patient Name: CYNDIE WOO Facility: [facility]:[place] : 1985 Planned Disposition: Home Health Service Anticipated Discharge Date: 12/08/18 Discharge Date: Expected LOS: 4 Initial Reviewer: [email or web address] Initial Review Date: 12/04/2018 Generated: 12/09/18 4:56 pm Comments DCP- Discharge Planning Updated by [email or web address]: Ammon Pyle on 12/09/18 2:[address] Patient Name: CYNDIE WOO Encounter No: [id number] : 1985 Primary Insurance: [employer] OUT OF STATE Anticipated DC Date: 12-08-2018 Planned Disposition: Home Health Service External Planned Provider: WAITING PT'S DECISION ON PROVIDER DCP follow-up note: CM RECEIVED TELEPHONE MESSAGE FROM [facility], THEY WILL NOT ACCEPT PT BACK FOR HOME HEALTH CARE. CM NOTIFIED PT IN ROOM. PT REPORTS SHE WILL CALL [facility] TO FIND OUT WHY THEY WILL NOT TAKE HER BACK. CM DISCUSSED PROVIDERS AVAILABLE, PROVIDED HOME HEALTH LISTING OF PROVIDERS. PT REPORTS SHE WANTS TO TALK TO HER SPOUSE BEFORE MAKING SECOND CHOICE ON PROVIDER. PT PLANS TO DISCHARGE HOME WITH SPOUSE, CM WAITING PT'S DECISION FOR HOME HEALTH PROVIDER TO COMPLETE HOME HEALTH ARRANGEMENTS FOR DISCHARGE HOME. MELO Spencer MANGNELLIE DCP- Discharge Planning Updated by [id number]: Julieta Clark on 12/06/18 1:[address] Patient Name: CYNDIE OWO Admission Status: Elective Accout number: [id number] Admission Date: 12-04-2018 : 1985 Admission Diagnosis:ACUTE PANCREATITIS WITHOUT NECROSIS OR INFECTION, UNSP Attending: JOHN HUERTA Current LOS: 2 Anticipated DC Date: 12-08-2018 Planned Disposition: Home Health Service Primary Insurance: [employer] OUT OF STATE Discharge Planning Comments: DC PLAN: DC NEEDS: CM met with patient to complete initial dc planning assessment. CM educated patient on the CM role and verbal consent given by patient to complete assessment. CM verified patient's address, phone number, and emergency contact phone numbers. Patient lives at home with her . Patient currently has [facility] Services and wishes to resume at discharge. ERIN form signed by patient for resumption of Home Health. Signed form placed in chart and signed form given to patient. Cm spoke to [facility] who stated she was not a current patient with [facility] since 10/23/18. Cm notified patient and informed her that [place]. At discharge patient plans to return home but her wont be home until Sunday to help care for her, she feels this is a safe discharge. Patient denied further known discharge needs at this time. . Patient reports her will transport her home at time of discharge.CM will continue to follow and will assist as needed with dc plans/needs. HH order received and referral faxed to [facility]. Commercial Solar Sales Consultant: Julieta Clark RN, [facility] DCPIA - Discharge Planning Initial Assessment Updated by [email or web address]: Julieta Clark on 12/06/18 2:21 pm * Is the patient Alert and Oriented? Yes * How many steps to enter\exit or inside your home? three * PCP Dr. Huerta * Pharmacy [facility] near the [facility] * Preadmission Environment Home with Family * ADLs Partial Dependent * Partial ADLs (Assistance needed) Ambulation * Equipment Walker Wheelchair * List name and contact numbers for known caregivers / representatives who currently or will assist patient after discharge: Raphael Woo - - [phone] Georgina Disla - mother - [phone] * Verbal permission to speak to the caregivers and representatives has been obtained from the patient. Yes * Community resources currently utilized Home Health * Please name any agencies selected above. Current with [facility]. * Additional services required to return to the preadmission environment? No * Can the patient safely return to the preadmission environment? Yes * Has this patient been hospitalized within the prior 30 days at any hospital? Yes Last DP export: 12/06/18 1:34 pm Patient Name: CYNDIE WOO Page [id number] at 6106 All edits/amendments must be made on the electronic document DICTATION DATE: 12/09/181554 MANAGER TALENT ACQUISITION: BE 12/09/181554 RPT#: [id number] DC DATE: STATUS: ADM IN [facility] [address] [place] [address] END OF REPORT
[2018-12-09 16:45] VITALS: BP 114/65
--- NOTE | 2018-12-09 19:38 | NUR ---
PATIENT IS ALERT AND ORIENTED, RESTING COMFORTABLY IN BED. NO S/S OF DISTRESS. NO C/O PAIN. CALL LIGHT WITHIN REACH. PATIENT REFUSED TO HAVE BED ALARM. PATIENT SIGNED REFUSAL WAIVER. WILL CPOC.
[2018-12-09 20:00] VITALS: BP 110/60
[2018-12-10 00:02] VITALS: BP 108/60
[2018-12-10 04:08] VITALS: BP 102/73
[2018-12-10 07:00] LABS: BASOPHILS 0.2 % (0-2); EOSINOPHILS 6.1 % (0-7); HEMATOCRIT 28.7 % (36.0-48.0); HEMOGLOBIN 9.3 g/dL (12-16); IMMATURE GRANULOCYTES 0.2 % (0-5); LYMPHOCYTES 33.2 % (15-50); MCH 26.3 pg (26.0-34.0); MCHC 32.4 g/dL (31.0-37.0); MCV 81.3 fL (80.0-100.0); MONOCYTES 10.7 % (2-11); NEUTROPHILS 49.6 % (40-80); PLATELET COUNT 191 10x3/uL (130-400); RBC 3.53 10x6/uL (4.00-5.40); RDW 13.8 % (11.5-14.5); WBC 5.1 10x3/uL (4.8-10.8)
[2018-12-10 07:17] LABS: CARBON DIOXIDE 25.2 mmol/L (21.0-32.0); CHLORIDE - SERUM 110 mmol/L (98-107); POTASSIUM - SERUM 3.9 mmol/L (3.5-5.1); SODIUM 146 mmol/L (136-145)
[2018-12-10 07:55] VITALS: BP 98/63
[2018-12-10 08:10] LABS: CALC OSMOLALITY 290 mosm/kg (275-300); CALCIUM 8.3 mg/dL (8.5-10.1); CREATININE - SERUM 0.8 mg/dL (0.6-1.3); GLUCOSE 128 mg/dL (74-106); UREA NITROGEN 7 mg/dL (7-18); eGFR NON AFRICAN AMERICAN 87 mL/min (90-120)
[2018-12-10 12:25] VITALS: BP 106/66
[2018-12-10] MEDS ORDERED: DIFLUCAN100 MG PO (13:13)
[2018-12-10] MEDS ORDERED: LEVSIN/ANASP0.125 MG SL (13:13)
[2018-12-10] MEDS ORDERED: PHENERGAN25 M1 PO (13:13)
[2018-12-10 14:46] VITALS: BP 106/64
--- NOTE | 2018-12-10 15:48 | MORECARE ---
CASE MANAGEMENT DISCHARGE SUMMARY PATIENT: CYNDIE WOO UNIT: [id number] ADM DATE: 12/04/18 AGE: 33 : 85 SEX: F ROOM/BED: D.2286 AUTHOR: LESLY ALBERTS PHYSICIAN: REFERRING PHYSICIAN: JOHN HUERTA MD DATE OF SERVICE: 12/10/18 Discharge Plan Patient Name: CYNDIE WOO Facility: [facility]:[place] : 1985 Planned Disposition: Home Health Service Anticipated Discharge Date: 12/10/18 Discharge Date: Expected LOS: 6 Initial Reviewer: [email or web address] Initial Review Date: 12/04/2018 Generated: 12/10/18 4:47 pm DCP- Discharge Planning Updated by [email or web address]: Ammon Pyle on 12/09/18 2:[address] Patient Name: CYNDIE WOO Encounter No: [id number] : 1985 Primary Insurance: [employer] OUT OF STATE Anticipated DC Date: 12-08-2018 Planned Disposition: Home Health Service External Planned Provider: WAITING PT'S DECISION ON PROVIDER DCP follow-up note: CM RECEIVED TELEPHONE MESSAGE FROM [facility], THEY WILL NOT ACCEPT PT BACK FOR HOME HEALTH CARE. CM NOTIFIED PT IN ROOM. PT REPORTS SHE WILL CALL [facility] TO FIND OUT WHY THEY WILL NOT TAKE HER BACK. CM DISCUSSED PROVIDERS AVAILABLE, PROVIDED HOME HEALTH LISTING OF PROVIDERS. PT REPORTS SHE WANTS TO TALK TO HER SPOUSE BEFORE MAKING SECOND CHOICE ON PROVIDER. PT PLANS TO DISCHARGE HOME WITH SPOUSE, CM WAITING PT'S DECISION FOR HOME HEALTH PROVIDER TO COMPLETE HOME HEALTH ARRANGEMENTS FOR DISCHARGE HOME. MELO Spencer DCP- Discharge Planning Updated by [email or web address]: Julieta Clark on 12/06/18 1:[address] Patient Name: CYNDIE WOO Admission Status: Elective Accout number: [id number] Admission Date: 12-04-2018 : 1985 Admission Diagnosis:ACUTE PANCREATITIS WITHOUT NECROSIS OR INFECTION, UNSP Attending: JOHN HUERTA Current LOS: 2 Anticipated DC Date: 12-08-2018 Planned Disposition: Home Health Service Primary Insurance: [employer] OUT OF STATE Discharge Planning Comments: DC PLAN: DC NEEDS: CM met with patient to complete initial dc planning assessment. CM educated patient on the CM role and verbal consent given by patient to complete assessment. CM verified patient's address, phone number, and emergency contact phone numbers. Patient lives at home with her . Patient currently has [facility] Home Health Services and wishes to resume at discharge. ERIN form signed by patient for resumption of Home Health. Signed form placed in chart and signed form given to patient. Cm spoke to [facility] who stated she was not a current patient with then since 10/23/18. Cm notified patient and informed her that [place]. At discharge patient plans to return home but her wont be home until Sunday to help care for her, she feels this is a safe discharge. Patient denied further known discharge needs at this time. . Patient reports her will transport her home at time of discharge.CM will continue to follow and will assist as needed with dc plans/needs. HH order received and referral faxed to [facility]. Patented Hogshead Assembler: Julieta Clark RN, [facility] DCPIA - Discharge Planning Initial Assessment Updated by [email or web address]: Julieta Clark on 12/06/18 2:21 pm * Is the patient Alert and Oriented? Yes * How many steps to enter\exit or inside your home? three * PCP Dr. Huerta * Pharmacy [facility] * Preadmission Environment Home with Family * ADLs Partial Dependent * Partial ADLs (Assistance needed) Ambulation * Equipment Walker Wheelchair * List name and contact numbers for known caregivers / representatives who currently or will assist patient after discharge: Raphael Woo - - [phone] Georgina Disla - mother - [phone] * Verbal permission to speak to the caregivers and representatives has been obtained from the patient. Yes * Community resources currently utilized Home Health * Please name any agencies selected above. Current with [facility]. * Additional services required to return to the preadmission environment? No * Can the patient safely return to the preadmission environment? Yes * Has this patient been hospitalized within the prior 30 days at any hospital? Yes External Providers External Provider: [facility] Next Contact Date: 12/10/2018 Service Request Date: Service Type: Resolution: Reviewer: Comments: Last DP export: 12/09/18 2:56 p Patient Name: CYNDIE WOO Page [phone] at 1548 All edits/amendments must be made on the electronic document DICTATION DATE: 12/10/181546 FOREST PATHOLOGIST: BE 12/10/181546 RPT#: [id number] DC DATE: STATUS: ADM IN [facility] [address] [place] [address] END OF REPORT
--- NOTE | 2018-12-10 15:56 | NUR ---
IP NEEDLE DCD. INCISION SWABED WITH BETADINE. DRSG REAPPLIED. TELEMETRY DCD. DC PLANS GIVEN. UNDERSTANDING VOICED.
--- NOTE | 2018-12-10 15:59 | MORECARE ---
CASE MANAGEMENT DISCHARGE SUMMARY PATIENT: CYNDIE WOO UNIT: [id number] ADM DATE: 12/04/18 AGE: 33 : [birth year] SEX: F ROOM/BED: D.7747 AUTHOR: ARISTEO,LESLY PHYSICIAN: REFERRING PHYSICIAN: JOHN HUERTA MD DATE OF SERVICE: 12/10/18 Discharge Plan Patient Name: CYNDIE WOO Facility: [facility]:[place] : 1985 Planned Disposition: Home Health Service Anticipated Discharge Date: 12/10/18 Discharge Date: 12/10/2018 Expected LOS: 6 Initial Reviewer: [email or web address] Initial Review Date: 12/04/2018 Generated: 12/10/18 4:59 pm Comments DCP- Discharge Planning Updated by [id number]: Ammon Bryant on 12/10/18 2:[address] Patient Name: CYNDIE WOO Encounter No: [id number] : 1985 Primary Insurance: [employer] OUT OF STATE Anticipated DC Date: 12-10-2018 Planned Disposition: Home Health Service External Planned Provider: [facility] DCP follow-up note: CM MET WITH PT IN ROOM WHO UNDERSTANDS SHE IS BEING DISCHARGED TODAY. PT UNHAPPY THAT SHE HAS NOT SEEN DR. MARTINEZ AND ONLY THE BILLING AUDITOR. PT WANTS HOME HEALTH WITH [facility], CHOICE SIGNED. PT REPORTS HER SPOUSE WILL TRANSPORT HOME TODAY IF SHE HAS TO LEAVE THE HOSPITAL. CM CALLED [facility], , SPOKE TO CINTHIA, REFERRAL PROVIDED, PT PLACED ON SCHEDULE FOR ADMIT ON SUNDAY IF PT'S INSURANCE COVERAGE IS OK WITH HOME HEALTH. CM FAXED REFERRAL AND DISCHARGE INFORMATION TO [facility] AT [phone]. DISTRIBUTION SUPERINTENDENT NURSE NOTIFIED. AMMON BRYANT, CASE MANAGEMENT DCP- Discharge Planning Updated by [email or web address]: Ammon Bryant on 12/09/18 2:[address] Patient Name: CYNDIE WOO Encounter No: [id number] : 1985 Primary Insurance: [employer]UE [employer] OUT OF STATE Anticipated DC Date: 12-08-2018 Planned Disposition: Home Health Service External Planned Provider: WAITING PT'S DECISION ON PROVIDER DCP follow-up note: CM RECEIVED TELEPHONE MESSAGE FROM [facility], THEY WILL NOT ACCEPT PT BACK FOR HOME HEALTH CARE. CM NOTIFIED PT IN ROOM. PT REPORTS SHE WILL CALL TO FIND OUT WHY THEY WILL NOT TAKE HER BACK. CM DISCUSSED PROVIDERS AVAILABLE, PROVIDED HOME HEALTH LISTING OF PROVIDERS. PT REPORTS SHE WANTS TO TALK TO HER SPOUSE BEFORE MAKING SECOND CHOICE ON PROVIDER. PT PLANS TO DISCHARGE HOME WITH SPOUSE, CM WAITING PT'S DECISION FOR HOME HEALTH PROVIDER TO COMPLETE HOME HEALTH ARRANGEMENTS FOR DISCHARGE HOME. Ammon Bryant, MELO MANGEMENT DCP- Discharge Planning Updated by [id number]: Julieta Clark on 12/06/18 1:[address] Patient Name: CYNDIE WOO Admission Status: Elective Accout number: [id number] Admission Date: 12-04-2018 : 1985 Admission Diagnosis:ACUTE PANCREATITIS WITHOUT NECROSIS OR INFECTION, UNSP Attending: JOHN HUERTA Current LOS: 2 Anticipated DC Date: 12-08-2018 Planned Disposition: Home Health Service Primary Insurance: [employer] OUT OF STATE Discharge Planning Comments: DC PLAN: DC NEEDS: CM met with patient to complete initial dc planning assessment. CM educated patient on the CM role and verbal consent given by patient to complete assessment. CM verified patient's address, phone number, and emergency contact phone numbers. Patient lives at home with her . Patient currently has Home Health Services and wishes to resume at discharge. ERIN form signed by patient for resumption of Home Health. Signed form placed in chart and signed form given to patient. Cm spoke to Leobardo @ [facility] who stated she was not a current patient with then since 10/23/18. Cm notified patient and informed her that we would have to get HH order at ma. At discharge patient plans to return home but her wont be home until Sunday to help care for her, she feels this is a safe discharge. Patient denied further known discharge needs at this time. . Patient reports her will transport her home at time of discharge.CM will continue to follow and will assist as needed with dc plans/needs. HH order received and referral faxed to [facility]. Pricing Associate: Julieta Clark RN, [facility] DCPIA - Discharge Planning Initial Assessment Updated by [email or web address]: Julieta Clark on 12/06/18 2:21 pm * Is the patient Alert and Oriented? Yes * How many steps to enter\exit or inside your home? three * PCP Dr. Huerta * [place] [facility] [place] * Preadmission Environment Home with Family * ADLs Partial Dependent * Partial ADLs (Assistance needed) Ambulation * Equipment Walker Wheelchair * List name and contact numbers for known caregivers / representatives who currently or will assist patient after discharge: Raphael Woo - - [phone] Georgina Disla - mother - [phone] * Verbal permission to speak to the caregivers and representatives has been obtained from the patient. Yes * Community resources currently utilized Home Health * Please name any agencies selected above. Current with [facility]. * Additional services required to return to the preadmission environment? No * Can the patient safely return to the preadmission environment? Yes * Has this patient been hospitalized within the prior 30 days at any hospital? Yes Coverage Notice Reviewer: [id number] Laura Bryant Notice Issued Date-Time: 12/10/2018 14:20 Notice Type: IM Discharge Notice Notice Delivered To: Patient Relationship to Patient: Waiter/Waitress Tourist Class Name: Delivery Method: HAND - Hand Delivered Zina Days: Prior Verbal Notification: Recipient Understood Notice: Yes Recipient Signature: Yes Med Rec Note Co-signed by Attending: Coverage Notice Comment: [facility] Last DP export: 12/10/18 2:48 p Patient Name: CYNDIE WOO Page 15234 at 1559 All edits/amendments must be made on the electronic document DICTATION DATE: 12/10/189 BUSINESS CONTINUITY SPECIALIST: BE 12/10/18 1559 RPT#: [id number] DC DATE:12/10/18 STATUS: DIS IN [facility] [address] [place] [address] END OF REPORT
--- NOTE | 2018-12-10 16:54 | MORECARE ---
CASE MANAGEMENT DISCHARGE SUMMARY PATIENT: CYNDIE WOO UNIT: [id number] ADM DATE: 12/04/18 AGE: 33 : 85 SEX: F ROOM/BED: D.8912 AUTHOR: ARISTEO,LESLY PHYSICIAN: REFERRING PHYSICIAN: JOHN HUERTA MD DATE OF SERVICE: 12/10/18 Discharge Plan Patient Name: CYNDIE WOO Facility: [facility]:[place] : 1985 Planned Disposition: Home Health Service Anticipated Discharge Date: 12/10/18 Discharge Date: 12/10/2018 Expected LOS: 6 Initial Reviewer: [email or web address] Initial Review Date: 12/04/2018 Generated: 12/10/18 5:53 pm Comments DCP- Discharge Planning Updated by [id number]: Ammon Bryant on 12/10/18 2:[address] Patient Name: CYNDIE WOO Encounter No: [id number] : 1985 Primary Insurance: [employer] OUT OF STATE Anticipated DC Date: 12-10-2018 Planned Disposition: Home Health Service External Planned Provider: [facility] DCP follow-up note: CM MET WITH PT IN ROOM WHO UNDERSTANDS SHE IS BEING DISCHARGED TODAY. PT UNHAPPY THAT SHE HAS NOT SEEN DR. MARTINEZ AND ONLY THE BATTERY CHARGER CONVEYOR LINE. PT WANTS HOME HEALTH WITH [facility], CHOICE SIGNED. PT REPORTS HER SPOUSE WILL TRANSPORT HOME TODAY IF SHE HAS TO LEAVE THE HOSPITAL. CM CALLED [facility], , SPOKE TO CINTHIA, REFERRAL PROVIDED, PT PLACED ON SCHEDULE FOR ADMIT ON SUNDAY IF PT'S INSURANCE COVERAGE IS OK WITH HOME HEALTH. CM FAXED REFERRAL AND DISCHARGE INFORMATION TO [facility] AT [phone]. HOT METAL CRANE OPERATOR NURSE NOTIFIED. AMMON BRYANT, CASE MANAGEMENT DCP- Discharge Planning Updated by [email or web address]: Ammon Bryant on 12/09/18 2:[address] Patient Name: CYNDIE WOO Encounter No: [id number] : 1985 Primary Insurance: [employer] OUT OF STATE Anticipated DC Date: 12-08-2018 Planned Disposition: Home Health Service External Planned Provider: WAITING PT'S DECISION ON PROVIDER DCP follow-up note: CM RECEIVED TELEPHONE MESSAGE FROM [facility], THEY WILL NOT ACCEPT PT BACK FOR HOME HEALTH CARE. CM NOTIFIED PT IN ROOM. PT REPORTS SHE WILL CALL [facility] TO FIND OUT WHY THEY WILL NOT TAKE HER BACK. CM DISCUSSED PROVIDERS AVAILABLE, PROVIDED HOME HEALTH LISTING OF PROVIDERS. PT REPORTS SHE WANTS TO TALK TO HER SPOUSE BEFORE MAKING SECOND CHOICE ON PROVIDER. PT PLANS TO DISCHARGE HOME WITH SPOUSE, CM WAITING PT'S DECISION FOR HOME HEALTH PROVIDER TO COMPLETE HOME HEALTH ARRANGEMENTS FOR DISCHARGE HOME. Ammon Bryant, MELO MANGEMENT DCP- Discharge Planning Updated by [email or web address]: Julieta Clark on 12/06/18 1:[address] Patient Name: CYNDIE WOO Admission Status: Elective Accout number: [id number] Admission Date: 12-04-2018 : 1985 Admission Diagnosis:ACUTE PANCREATITIS WITHOUT NECROSIS OR INFECTION, UNSP Attending: JHON HUERTA Current LOS: 2 Anticipated DC Date: 12-08-2018 Planned Disposition: Home Health Service Primary Insurance: [employer] OUT OF STATE Discharge Planning Comments: DC PLAN: DC NEEDS: CM met with patient to complete initial dc planning assessment. CM educated patient on the CM role and verbal consent given by patient to complete assessment. CM verified patient's address, phone number, and emergency contact phone numbers. Patient lives at home with her . Patient currently has [facility] Services and wishes to resume at discharge. ERIN form signed by patient for resumption of Home Health. Signed form placed in chart and signed form given to patient. Cm spoke to Leobardo @ [facility] who stated she was not a current patient with then since 10/23/18. Cm notified patient and informed her that we would have to get HH order at al. At discharge patient plans to return home but her wont be home until Sunday to help care for her, she feels this is a safe discharge. Patient denied further known discharge needs at this time. . Patient reports her will transport her home at time of discharge.CM will continue to follow and will assist as needed with dc plans/needs. HH order received and referral faxed to [facility]. Waiter/Waitress Cafeteria: Julieta Clark RN, [facility] DCPIA - Discharge Planning Initial Assessment Updated by [id number]: Julieta Clark on 12/06/18 2:21 pm * Is the patient Alert and Oriented? Yes * How many steps to enter\exit or inside your home? three * PCP Dr. Huerta * Pharmacy [facility] [place] * Preadmission Environment Home with Family * ADLs Partial Dependent * Partial ADLs (Assistance needed) Ambulation * Equipment Walker Wheelchair * List name and contact numbers for known caregivers / representatives who currently or will assist patient after discharge: Raphael Woo - - [phone] Georgina Disla - mother - [phone] * Verbal permission to speak to the caregivers and representatives has been obtained from the patient. Yes * Community resources currently utilized Home Health * Please name any agencies selected above. Current with [facility]. * Additional services required to return to the preadmission environment? No * Can the patient safely return to the preadmission environment? Yes * Has this patient been hospitalized within the prior 30 days at any hospital? Yes External Providers External Provider: OTHER-OTHER Next Contact Date: Service Request Date: Service Type: Resolution: Reviewer: Comments: Coverage Notice Reviewer: [id number] - Ammon Bryant Notice Issued Date-Time: 12/10/2018 14:20 Notice Type: IM Discharge Notice Notice Delivered To: Patient Relationship to Patient: Legal Billing Coordinator Name: Delivery Method: HAND - Hand Delivered Zina Days: Prior Verbal Notification: Recipient Understood Notice: Yes Recipient Signature: Yes Med Rec Note Co-signed by Attending: Coverage Notice Comment: [facility] Last DP export: 12/10/18 2:59 p Patient Name: CYNDIE WOO Page 15530 at 1654 All edits/amendments must be made on the electronic document DICTATION DATE: 12/10/181652 SALES REPRESENTATIVE JEWELRY: BE 12/10/181652 RPT#: [id number] DC DATE:12/10/18 STATUS: DIS IN [facility] [address] [place] [address] END OF REPORT
== END 2018-12-10 15:57 | disposition home health service (06) | DRG 640 ==
LOC: D.M2 13:04 → D.SDCHOLD 13:04 → OBSVTIME 13:07 → D.M2 13:11 → D.SDCHOLD 12-09 08:25 → D.M2 12-09 08:28
PROVIDERS: Family Medicine; Internal Medicine Nephrology; Surgery; ADMIT Family Medicine; ATTEND Family Medicine
PROC: 05H633Z Insertion of Infusion Device into Left Subclavian Vein, Percutaneous Approach (ICD-10-PCS; 2018-12-05)
PROC: B5171ZA Fluoroscopy of Left Subclavian Vein using Low Osmolar Contrast, Guidance (ICD-10-PCS; 2018-12-05)
PROC: 0JH63XZ Insertion of Tunneled Vascular Access Device into Chest Subcutaneous Tissue and Fascia, Percutaneous Approach (ICD-10-PCS; principal; 2018-12-05 12:00)
DX: E86.0 Dehydration (principal); K85.90 Acute pancreatitis without necrosis or infection, unspecified; N17.9 Acute kidney failure, unspecified; K21.9 Gastro-esophageal reflux disease without esophagitis; I34.0 Nonrheumatic mitral (valve) insufficiency; D64.9 Anemia, unspecified; N83.202 Unspecified ovarian cyst, left side; N83.201 Unspecified ovarian cyst, right side; K29.70 Gastritis, unspecified, without bleeding; N80.9 Endometriosis, unspecified

== ENCOUNTER 2018-12-13 07:00 | Day surgery (SDC) | payer BC, MEDICAID ==
[2018-12-11 17:44] LABS: BASOPHILS 0.3 % (0-2); EOSINOPHILS 4.5 % (0-7); HEMATOCRIT 33.5 % (36.0-48.0); HEMOGLOBIN 10.9 g/dL (12-16); IMMATURE GRANULOCYTES 0.3 % (0-5); LYMPHOCYTES 25.1 % (15-50); MCH 26.7 pg (26.0-34.0); MCHC 32.5 g/dL (31.0-37.0); MCV 81.9 fL (80.0-100.0); MEAN PLATELET VOLUME 9.5 fL (7.4-10.4); MONOCYTES 6.8 % (2-11); RBC 4.09 10x6/uL (4.00-5.40); RDW 13.9 % (11.5-14.5)
[2018-12-11 17:55] LABS: PLATELET COUNT 243 10x3/uL (130-400); WBC 7.9 10x3/uL (4.8-10.8)
[2018-12-11 18:03] LABS: CALC OSMOLALITY 282 mosm/kg (275-300); CALCIUM 8.5 mg/dL (8.5-10.1); CARBON DIOXIDE 26.8 mmol/L (21.0-32.0); CHLORIDE - SERUM 107 mmol/L (98-107); CREATININE - SERUM 0.7 mg/dL (0.6-1.3); GLUCOSE 98 mg/dL (74-106); POTASSIUM - SERUM 4.4 mmol/L (3.5-5.1); SODIUM 142 mmol/L (136-145); eGFR NON AFRICAN AMERICAN > 90 mL/min (90-120)
[2018-12-11 18:07] LABS: UREA NITROGEN 12 mg/dL (7-18)
[~2018-12-13] VITALS: Ht 165.1 cm; Wt 63.5 kg
[~2018-12-13 07:00] MED LIST changes: +DIFLUCAN100 MG PO; +DILAUDID2 MG PO; +LEVSIN/ANASP0.125 MG SL; +PHENERGAN25 M1 PO; +SENNA LAXATIVE8.6 MG PO
[2018-12-13 08:23] LABS: HCG URINE NEGATIVE (NEGATIVE)
[2018-12-13 09:03] VITALS: BP 119/78; Ht 165.1 cm; Wt 63.5 kg
--- NOTE | 2018-12-13 16:08 | NUR ---
1421 PT MEDICATED FOR PAIN AND NAUSEA AFTER GETTING UP TO VOID EARLIER. C/O LLQ ABD PAIN. ABDOMEN SOFT AND NDN-DISTENDED. NO BLEEDING AT LAPAROSCOPIC SITES.
--- NOTE | 2018-12-13 16:09 | NUR ---
1450 PT STATES THAT HER NAUSEA IS COMPLETELY GONE AND THAT HER PAIN IS EASING. STATES SHE FEELS GOOD ENOUGH TO BE DISCHARGED HOME.
--- NOTE | 2018-12-13 16:11 | NUR ---
1503 IV DC'D, CATHETER TIP INTACT. NO BLEEDING AT SITE. BANDAID APPLIED.
--- NOTE | 2018-12-31 10:58 | OP ---
PATIENT NAME: CYNDIE CAMACHO MEDICAL RECORD: [id number] :[birth year] LOCATION:D.[facility] ADMISSION DATE: SURGEON: LISANDRA RETANA MD DATE OF OPERATION: 12/13/2018 PREOPERATIVE DIAGNOSES: 1. A 5 cm persistent left ovarian cyst. 2. Pelvic pain. POSTOPERATIVE DIAGNOSES: 1. Endometriosis. 2. Adenomyosis. 3. A 5 cm simple left ovarian cyst. PROCEDURE: Operative laparoscopy and left ovarian cystectomy. SPECIMENS: Include partial left ovarian cyst. ESTIMATED BLOOD LOSS: Minimal. INTRAVENOUS FLUIDS: Per anesthesia record. COMPLICATIONS: None apparent. PROCEDURE IN DETAIL: The patient was taken to the operating room where general anesthesia was achieved without difficulty. The patient was then prepped and draped in normal sterile fashion in the dorsal lithotomy position in the [facility]. At this point, general anesthesia was achieved. The patient was then prepped and draped. A Gomez catheter was placed as well as a sponge stick into the vagina for uterine elevation. Attention was then turned infraumbilically where a 5-mm incision was made just underneath the belly button. Under direct visualization of the laparoscope, a 5-mm bladeless trocar was used to enter the intraperitoneal space without difficulty. The patient was then insufflated. The introducer removed and intraperitoneal placement was confirmed by direct visualization. Attention was then turned to the midline in the lower aspect of the abdomen. A 5 mm incision was made in the skin approximately 4 cm above the pubic symphysis and another 5-mm bladeless trocar was used to enter the intraperitoneal space under direct visualization of the laparoscope. Survey of the abdomen and pelvis was performed. Of note, on the left was a 5-6 cm ovarian cyst, which was distorting the anatomy of the left fallopian tube. This cyst was then rotated into its normal anatomic position. The Bovie cautery hook was then used to excise an area of the cyst wall and the fluid was suctioned out using the laparoscopic suction. The fluid looked clear. The cyst was then opened up using the Thunderbeat by excising a longitudinal section of the cyst wall adjacent to the normal appearing ovary. This was then tented upward and the majority of the cyst wall was then cut and burned using the Thunderbeat and this portion of the cyst wall was then removed via one of the 5-mm ports. Of note, a third port was also made in the right lower quadrant, a 5-mm incision made in the right lower quadrant and under direct visualization of laparoscope, a 5-mm bladeless trocar was used to enter the intraperitoneal space. Good hemostasis was noted from the left ovarian cyst. The right ovary appeared normal. Of note was the patient had a uterus consistency of poor adenomyosis. The patient was then desufflated. Good hemostasis was noted from the surgical sites. The trocars were removed and the skin was repaired with 3-0 Vicryl in an interrupted fashion. The sponge stick and Gomez were then removed. The patient OPERATIVE REPORT [id number] CYNDIE CAMACHO tolerated the procedure well, was transported to postanesthesia recovery stable without incident. TRANSINT:[id number] Voice Confirmation ID: [id number] DOCUMENT ID: [id number] LISANDRA RETANA MD at 1058 CC: [id number] DICTATION DATE: 12/27/18 1345 PROGRESS CLERK: 12/27/18 1421 [facility] 12/13/18 [id number] [place] [address]
== END 2018-12-13 15:22 | disposition home or self-care (01) ==
LOC: D.OPS 07:00 → D.PAN 09:00 → D.OPS 15:22
PROVIDERS: ATTEND Obstetrics & Gynecology
DX: N83.292 Other ovarian cyst, left side (principal); N80.0 Endometriosis of uterus

== ENCOUNTER 2019-01-06 12:05 | Inpatient (IN) | payer BC, MEDICAID ==
[~2019-01-06] VITALS: Ht 165.1 cm; Wt 63.5 kg
[2019-01-06] MEDS ORDERED: ZOFRAN4 MG PO (12:44)
[2019-01-06 13:00] VITALS: BP 113/78
[2019-01-06 13:41] LABS: BASOPHILS 0.3 % (0-2); EOSINOPHILS 1.9 % (0-7); HEMATOCRIT 32.9 % (36.0-48.0); HEMOGLOBIN 10.7 g/dL (12-16); IMMATURE GRANULOCYTES 0.1 % (0-5); LYMPHOCYTES 33.8 % (15-50); MCH 25.9 pg (26.0-34.0); MCHC 32.5 g/dL (31.0-37.0); MCV 79.7 fL (80.0-100.0); MEAN PLATELET VOLUME 9.8 fL (7.4-10.4); MONOCYTES 8.6 % (2-11); NEUTROPHILS 55.3 % (40-80); PLATELET COUNT 214 10x3/uL (130-400); RBC 4.13 10x6/uL (4.00-5.40); RDW 13.7 % (11.5-14.5); WBC 6.8 10x3/uL (4.8-10.8)
[2019-01-06 14:23] LABS: ALBUMIN 3.8 g/dL (3.4-5.0); ALKALINE PHOSPHATASE 61 U/L (46-116); ALT (SGPT) 15 U/L (10-68); AMYLASE - SERUM 77 U/L (25-115); BILIRUBIN - TOTAL 0.36 mg/dL (0.2-1.3); CALC OSMOLALITY 276 mosm/kg (275-300); CALCIUM 8.5 mg/dL (8.5-10.1); CARBON DIOXIDE 25.7 mmol/L (21.0-32.0); CHLORIDE - SERUM 107 mmol/L (98-107); CREATININE - SERUM 0.7 mg/dL (0.6-1.3); GLUCOSE 107 mg/dL (74-106); LIPASE 326 U/L (73-393); POTASSIUM - SERUM 4.3 mmol/L (3.5-5.1); PROTEIN - SERUM 7.1 g/dL (6.4-8.2); SODIUM 140 mmol/L (136-145); UREA NITROGEN 7 mg/dL (7-18); eGFR NON AFRICAN AMERICAN > 90 mL/min (90-120)
[2019-01-06 17:08] LABS: APPEARANCE CLEAR (CLEAR); BILIRUBIN NEGATIVE (NEGATIVE); COLOR YELLOW (YELLOW); GLUCOSE NEGATIVE (NEGATIVE); KETONE NEGATIVE (NEGATIVE); NITRITE NEGATIVE (NEGATIVE); PROTEIN NEGATIVE (NEGATIVE); UROBILINOGEN NORMAL (NORMAL)
[2019-01-06 17:10] VITALS: BP 101/65
--- NOTE | 2019-01-06 20:00 | NUR ---
ALERT SITTING UP IN BED, C/O OF ABD PAIN, DILAUDID GIVEN ORDERED, SEE SHIFT ASSESSMENT, CALL LIGHT IN REACH
[2019-01-06 21:14] VITALS: BP 100/67
[2019-01-07 01:44] VITALS: BP 103/63
[2019-01-07 04:38] VITALS: BP 104/64
[2019-01-07 06:49] LABS: BASOPHILS 0.2 % (0-2); EOSINOPHILS 4.9 % (0-7); HEMOGLOBIN 9.3 g/dL (12-16); IMMATURE GRANULOCYTES 0.2 % (0-5); LYMPHOCYTES 46.2 % (15-50); MCH 25.8 pg (26.0-34.0); MCHC 32.1 g/dL (31.0-37.0); MCV 80.3 fL (80.0-100.0); MEAN PLATELET VOLUME 9.9 fL (7.4-10.4); NEUTROPHILS 37.5 % (40-80); PLATELET COUNT 179 10x3/uL (130-400); RBC 3.61 10x6/uL (4.00-5.40); RDW 13.7 % (11.5-14.5); WBC 5.6 10x3/uL (4.8-10.8)
[2019-01-07 06:54] LABS: CALC OSMOLALITY 282 mosm/kg (275-300); CALCIUM 7.8 mg/dL (8.5-10.1); CARBON DIOXIDE 26.9 mmol/L (21.0-32.0); CHLORIDE - SERUM 110 mmol/L (98-107); CREATININE - SERUM 0.7 mg/dL (0.6-1.3); GLUCOSE 112 mg/dL (74-106); SODIUM 143 mmol/L (136-145); eGFR NON AFRICAN AMERICAN > 90 mL/min (90-120)
[2019-01-07 06:55] LABS: UREA NITROGEN 3 mg/dL (7-18)
--- NOTE | 2019-01-07 07:10 | NUR ---
REC'D IN BED AWAKE AND ALERT. RESP EVEN AND UNLABORED WITH NO DISTRESS NOTED. CAN EXPRESS NEEDS AND WANTS.TURN AND REPOSITION SELF AB TABATHA. ASSESSMENT COMPLETED. C/L IN REACH AT BEDSIDE.
--- NOTE | 2019-01-07 07:57 | NUR ---
MEDICATED AT THIS TIME FOR C/O ABD PAIN RATING 8/10 ON PAIN SCALE WITH DILUADID 1.5MG PER ORDERS. C/L IN REACH AT BEDSIDE.
[2019-01-07 08:24] VITALS: BP 129/83
--- NOTE | 2019-01-07 10:22 | NUR ---
WAS MEDICATED WITH PHENEGRAN 25 MG PER ORDERS FOR NAUSEA. C/L IN REACH AT BEDSIDE
[2019-01-07 12:19] VITALS: BP 113/74
[2019-01-07 12:41] VITALS: Ht 165.1 cm; Wt 63.5 kg
--- NOTE | 2019-01-07 15:41 | MORECARE ---
CASE MANAGEMENT DISCHARGE SUMMARY PATIENT: CYNDIE CAMACHO UNIT: [id number] ADM DATE: 01/06/19 AGE: 33 : 85 SEX: F ROOM/BED: D.2230 AUTHOR: LESLY ALBERTS PHYSICIAN: REFERRING PHYSICIAN: JOHN HUERTA MD DATE OF SERVICE: 01/07/19 Discharge Plan Patient Name: CYNDIE CAMACHO Facility: [facility]:[place] : 1985 Planned Disposition: Home Hlth Svc w Plan Readm Anticipated Discharge Date: Discharge Date: Expected LOS: Initial Reviewer: [email or web address] Initial Review Date: 01/07/2019 Generated: 01/07/19 4:40 pm Comments DCP- Discharge Planning Updated by [email or web address]: Marylou Maza on 01/07/19 2:[address] Patient Name: CYNDIE CAMACHO Admission Status: Urgent Accout number: [id number] Admission Date: 01-06-2019 : 1985 Admission Diagnosis: Attending: JOHN HUERTA Current LOS: 1 Anticipated DC Date: Planned Disposition: Home Hlth Svc w Plan Readm Primary Insurance: [employer] CM met with patient to complete initial dc planning assessment. CM educated patient on the CM role and verbal consent given by patient to complete assessment. Patient lives at home with her and 5 children. At discharge patient plans to return and feels this is a safe discharge. CM discussed availability of home health, rehab services, and medical equipment. Patient states she has [facility] that have been coming out for her IV fluid every other day and she would like this resumed on discharge. . CM will continue to follow and will assist as needed with dc plans/needs. Discharge Planning Comments: Excavating Supervisor: Marylou Maza DCPIA - Discharge Planning Initial Assessment Updated by [email or web address]: Marylou Maza on 01/07/19 3:35 pm * Is the patient Alert and Oriented? Yes * How many steps to enter\exit or inside your home? 06/28 flight * PCP Dr. Huerta * Pharmacy [facility] * Preadmission Environment Home with Family * ADLs Partial Dependent * Partial ADLs (Assistance needed) Ambulation * Equipment Walker Wheelchair * List name and contact numbers for known caregivers / representatives who currently or will assist patient after discharge: Raphael Dominguez - - [phone] Georgina Disla - mother - [phone] * Verbal permission to speak to the caregivers and representatives has been obtained from the patient. Yes * Community resources currently utilized Home Health * Please name any agencies selected above. [facility] * Additional services required to return to the preadmission environment? No * Can the patient safely return to the preadmission environment? Yes * Has this patient been hospitalized within the prior 30 days at any hospital? Yes Coverage Notice Reviewer: [email or web address] Laura Maza Notice Issued Date-Time: 01/07/2019 15:37 Notice Type: Patient Choice Letter Notice Delivered To: Patient Relationship to Patient: Self Farm Supervisor Name: Delivery Method: HAND - Hand Delivered Zina Days: Prior Verbal Notification: Recipient Understood Notice: Yes Recipient Signature: Yes Med Rec Note Co-signed by Attending: Coverage Notice Comment: ERIN for [facility] Patient Name: CYNDIE CAMACHO Page 51916 at 1541 All edits/amendments must be made on the electronic document DICTATION DATE: 01/07/19 154 AUTOMOTIVE GLAZIER: BE 01/07/19 1540 RPT#: [id number] DC DATE: STATUS: ADM IN [facility] [address] [place] [address] END OF REPORT
[2019-01-07 17:03] VITALS: BP 96/61
--- NOTE | 2019-01-07 20:00 | NUR ---
ALERT SITTING UP IN BED FAMILY AT BEDSIDE, C/O ABD PAIN REQUESTIGN PAIN MEDICATION, DILAUDID GIVEN ORDERED, SEE SHIFT AASSESSMENT, HAS MAG CITRATE AT BEDSIDE STATES NG THROAT REQUESTING SPRITE TO DILUTE IT WITH, GIVEN
[2019-01-07 21:20] VITALS: BP 122/81
[2019-01-08 01:11] VITALS: BP 106/71
--- NOTE | 2019-01-08 01:15 | NUR ---
CALLED TO ROOM STATES WOKE UP GASPING FOR BREATH, REQUESTING OXYGEN OR A MONITOR THAT WILL ALARM IF SHE STPOS BREATHING , PULSE OX CHECKED AT 98% ON RA, BUT INSISTING ON HAVING OXYGEN, O2 PLACED AT 2 L N/C PER PT REQUEST, INFORMED WILL CHECK ON FREQUENTLY
--- NOTE | 2019-01-08 02:00 | NUR ---
CHECKED IN STATES MY THROAT IS BURNING, I THINK I NEED A GI COTAIL MAY BE HEART BURN, INSTRUCTED NEED TO TRY TO JUST RELAX AND GET SOME REST AND TALK TO DR TOMORROW WILL CONTINUE TO MONITOR, RESP UNLABORED AN ACUTE DISTRESS NOTED
[2019-01-08 07:08] LABS: BASOPHILS 0.4 % (0-2); HEMATOCRIT 28.5 % (36.0-48.0); HEMOGLOBIN 9.1 g/dL (12-16); IMMATURE GRANULOCYTES 0.2 % (0-5); LYMPHOCYTES 46.3 % (15-50); MCH 25.7 pg (26.0-34.0); MCHC 31.9 g/dL (31.0-37.0); MCV 80.5 fL (80.0-100.0); MEAN PLATELET VOLUME 10.2 fL (7.4-10.4); MONOCYTES 12.3 % (2-11); NEUTROPHILS 33.8 % (40-80); PLATELET COUNT 191 10x3/uL (130-400); RBC 3.54 10x6/uL (4.00-5.40); RDW 13.4 % (11.5-14.5); WBC 5.7 10x3/uL (4.8-10.8)
--- NOTE | 2019-01-08 07:10 | NUR ---
REC'D IN BED AWAKE AND ALERT TALKING WITH . RESP EVEN AND UNLABORED WITH NO DISTRESS NOTED. CAN EXPRESS NEEDS AND WANTS. AMBULATE WITH SLOW AND STEADY GAIT. ASSESSMENT COMPLETED. C/L IN REACH AT BEDSIDE.
[2019-01-08 07:23] LABS: CALCIUM 8.1 mg/dL (8.5-10.1); CARBON DIOXIDE 28.3 mmol/L (21.0-32.0); CHLORIDE - SERUM 108 mmol/L (98-107); GLUCOSE 100 mg/dL (74-106); SODIUM 142 mmol/L (136-145); eGFR NON AFRICAN AMERICAN 76 mL/min (90-120)
[2019-01-08 07:31] LABS: CALC OSMOLALITY 279 mosm/kg (275-300); CREATININE - SERUM 0.9 mg/dL (0.6-1.3); UREA NITROGEN 4 mg/dL (7-18)
--- NOTE | 2019-01-08 09:03 | NUR ---
WAS MEDICATED FOR C/O ABD PAIN RATING 8/10 ON PAIN SCALE WITH DILUADID 1.5 MG PER ORDERS. C/L IN REACH AT BEDSIDE.
[2019-01-08 09:22] VITALS: BP 121/87
--- NOTE | 2019-01-08 12:59 | NUR ---
ATTEMPTED TO GIVE PRN NORCO. STATED TAKES DILAUDID AT HOME AND DOES NOT WANT TO TAKE. RETURNED TO [facility].
[2019-01-08 14:12] VITALS: BP 119/52
[2019-01-08 16:09] VITALS: BP 125/76
--- NOTE | 2019-01-08 17:48 | NUR ---
I have reviewed this patient and I concur with the Shift Assessment completed by the Licensed Practical Nurse today this shift.
[2019-01-08 20:55] VITALS: BP 111/61
[2019-01-09 00:47] VITALS: BP 120/60
--- NOTE | 2019-01-09 03:25 | NUR ---
PATIENT IN BED WITH FAMILY AT BEDSIDE NO NEED AT THIS TIME LEFT INFUSAPORT TO LEFT CHEST WITH D5LR AT 100. LEFT ARM RESERVE. ALERT AND ORENTED ABLE TO VOICE NEEDS AND WANTS TO STAFF.CALL LIGHT IN REACHWATER AT BEDSIDE.
[2019-01-09 05:18] VITALS: BP 99/80
--- NOTE | 2019-01-09 05:58 | NUR ---
PATIENT REFUSED CREON 12 THIS AM STATED THAT SHE ONLY TAKES IT WITH FOOD SNACK OFFERED AND REFUSED STATED SHE WILL WATE. THEN STATED THAT SHE TOLED THE NURSE YESTERDAY THAT SHE WAS PASSING BLOOD FOR STOOL AND SHOWED IT TO HER. WHEN ASK IF SHE HAD ONE OVER NIGHT SHE SAID NO. EDUCATED HER TO INFORM AND I WOULD PASS IT ON IN REPORT.
[2019-01-09 06:06] LABS: BASOPHILS 0.2 % (0-2); EOSINOPHILS 4.2 % (0-7); HEMATOCRIT 29.4 % (36.0-48.0); HEMOGLOBIN 9.6 g/dL (12-16); IMMATURE GRANULOCYTES 0.2 % (0-5); LYMPHOCYTES 33.5 % (15-50); MCHC 32.7 g/dL (31.0-37.0); MCV 79.7 fL (80.0-100.0); MEAN PLATELET VOLUME 9.8 fL (7.4-10.4); MONOCYTES 14.6 % (2-11); NEUTROPHILS 47.3 % (40-80); PLATELET COUNT 180 10x3/uL (130-400); RBC 3.69 10x6/uL (4.00-5.40); RDW 13.6 % (11.5-14.5)
[2019-01-09 06:16] LABS: CALC OSMOLALITY 284 mosm/kg (275-300); CALCIUM 7.9 mg/dL (8.5-10.1); CARBON DIOXIDE 26.9 mmol/L (21.0-32.0); CHLORIDE - SERUM 111 mmol/L (98-107); CREATININE - SERUM 0.8 mg/dL (0.6-1.3); GLUCOSE 107 mg/dL (74-106); POTASSIUM - SERUM 3.5 mmol/L (3.5-5.1); SODIUM 144 mmol/L (136-145); eGFR NON AFRICAN AMERICAN 87 mL/min (90-120)
[2019-01-09 06:17] LABS: UREA NITROGEN 6 mg/dL (7-18)
--- NOTE | 2019-01-09 07:31 | NUR ---
IN BED WITH EYES CLOSED EASILY TO AROUSED WHEN NAME IS CALLED. RESP EVEN AND UNLABORED WITH NO DISTRESS NOTED. CN EXPRESS NEEDS AND WANTS. ASSESSMENT COMPLETED. C/L IN REACH AT BEDSIDE.
[2019-01-09 08:12] VITALS: BP 112/76
[2019-01-09] MEDS ORDERED: MIRALAX17 GM PO (12:31)
[2019-01-09 12:49] VITALS: BP 115/66
--- NOTE | 2019-01-09 15:19 | NUR ---
PORT FLUSHED WITH NS AND HEPARIN FLUSH AT THIS TIME. PORT ACCESS REMOVED. PATIENT TO BE DC'D. CALL LIGHT WITHIN REACH.
--- NOTE | 2019-01-09 15:33 | MORECARE ---
CASE MANAGEMENT DISCHARGE SUMMARY PATIENT: CYNDIE CAMACHO UNIT: [id number] ADM DATE: 01/06/19 AGE: 33 : 85 SEX: F ROOM/BED: D.2230 AUTHOR: LESLY ALBERTS PHYSICIAN: REFERRING PHYSICIAN: JOHN HUERTA MD DATE OF SERVICE: 01/09/19 Discharge Plan Patient Name: CYNDIE CAMACHO Facility: [facility]:[place] : 1985 Planned Disposition: Home Hlth Svc w Plan Readm Anticipated Discharge Date: Discharge Date: Expected LOS: Initial Reviewer: [email or web address] Initial Review Date: 01/07/2019 Generated: 01/09/19 4:32 pm Comments DCP- Discharge Planning Updated by [email or web address]: Marylou Maza on 01/09/19 2:[address] DC order received. I called [facility] and spoke with Diya, they will resume, clinical faxed. Home with Home health. DCP- Discharge Planning Updated by [email or web address]: Marylou Maza on 01/07/19 2:[address] Patient Name: CYNDIE CAMACHO Admission Status: Urgent Accout number: [id number] Admission Date: 01-06-2019 : 1985 Admission Diagnosis: Attending: JOHN HUERTA Current LOS: 1 Anticipated DC Date: Planned Disposition: Home Hlth Svc w Plan Readm Primary Insurance: [employer] [facility] CM met with patient to complete initial dc planning assessment. CM educated patient on the CM role and verbal consent given by patient to complete assessment. Patient lives at home with her and 5 children. At discharge patient plans to return and feels this is a safe discharge. CM discussed availability of home health, rehab services, and medical equipment. Patient states she has [facility] that have been coming out for her IV fluid every other day and she would like this resumed on discharge. . CM will continue to follow and will assist as needed with dc plans/needs. Discharge Planning Comments: Ship Superintendent: Mayrlou Maza DCPIA - Discharge Planning Initial Assessment Updated by [email or web address]: Marylou Maza on 01/07/19 3:35 pm * Is the patient Alert and Oriented? Yes * How many steps to enter\exit or inside your home? 06/28 flight * PCP Dr. Huerta * Pharmacy [facility] * Preadmission Environment Home with Family * ADLs Partial Dependent * Partial ADLs (Assistance needed) Ambulation * Equipment Walker Wheelchair * List name and contact numbers for known caregivers / representatives who currently or will assist patient after discharge: Raphael Dominguez - - [phone] Georgina Disla - mother - [phone] * Verbal permission to speak to the caregivers and representatives has been obtained from the patient. Yes * Community resources currently utilized Home Health * Please name any agencies selected above. [facility] * Additional services required to return to the preadmission environment? No * Can the patient safely return to the preadmission environment? Yes * Has this patient been hospitalized within the prior 30 days at any hospital? 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
--- NOTE | 2019-01-09 16:15 | NUR ---
DC HOME VOICE UNDERSTANDING OF DC INSTUCTIION. WAS IN STABLE CONDITION UPON DEPARTURE.
--- NOTE | 2019-01-10 14:30 | MORECARE ---
CASE MANAGEMENT DISCHARGE SUMMARY PATIENT: CYNDIE CAMACHO UNIT: [id number] ADM DATE: 01/06/19 AGE: 33 : 85 SEX: F ROOM/BED: D.2230 AUTHOR: LESLY ALBERTS PHYSICIAN: REFERRING PHYSICIAN: JOHN HUERTA MD DATE OF SERVICE: 01/10/19 Discharge Plan Patient Name: CYNDIE CAMACHO Facility: [facility]:[place] : 1985 Planned Disposition: Home Hlth Svc w Plan Readm Anticipated Discharge Date: Discharge Date: 01/09/2019 Expected LOS: Initial Reviewer: [id number] Initial Review Date: 01/07/2019 Generated: 01/10/19 3:30 pm Comments DCP- Discharge Planning Updated by [email or web address]: Marylou Maza on 01/09/19 2:[address] DC order received. I called [facility] and spoke with Diya, they will resume, clinical faxed. Home with Home health. DCP- Discharge Planning Updated by [email or web address]: Marylou Maza on 01/07/19 2:[address] Patient Name: CYNDIE CAMACHO Admission Status: Urgent Accout number: [id number] Admission Date: 01-06-2019 : 1985 Admission Diagnosis: Attending: JOHN HUERTA Current LOS: 1 Anticipated DC Date: Planned Disposition: Home Hlth Svc w Plan Readm Primary Insurance: [employer] [facility] CM met with patient to complete initial dc planning assessment. CM educated patient on the CM role and verbal consent given by patient to complete assessment. Patient lives at home with her and 5 children. At discharge patient plans to return and feels this is a safe discharge. CM discussed availability of home health, rehab services, and medical equipment. Patient states she has [facility] that have been coming out for her IV fluid every other day and she would like this resumed on discharge. . CM will continue to follow and will assist as needed with dc plans/needs. Discharge Planning Comments: Milk Drying Machine Operator: Marylou Maza DCPIA - Discharge Planning Initial Assessment Updated by [email or web address]: Marylou Maza on 01/07/19 3:35 pm * Is the patient Alert and Oriented? Yes * How many steps to enter\exit or inside your home? 06/28 flight * PCP Dr. Huerta * Pharmacy [facility] * Preadmission Environment Home with Family * ADLs Partial Dependent * Partial ADLs (Assistance needed) Ambulation * Equipment Walker Wheelchair * List name and contact numbers for known caregivers / representatives who currently or will assist patient after discharge: Raphael Dominguez - - [phone] Georgina Disla - mother - [phone] * Verbal permission to speak to the caregivers and representatives has been obtained from the patient. Yes * Community resources currently utilized Home Health * Please name any agencies selected above. [facility] * Additional services required to return to the preadmission environment? No * Can the patient safely return to the preadmission environment? Yes * Has this patient been hospitalized within the prior 30 days at any hospital? Yes Coverage Notice Reviewer: [email or web address] Laura Maza Notice Issued Date-Time: 01/07/2019 15:37 Notice Type: Patient Choice Letter Notice Delivered To: Patient Relationship to Patient: Self Lithographic Proofer Apprentice Name: Delivery Method: HAND - Hand Delivered Zina Days: Prior Verbal Notification: Recipient Understood Notice: Yes Recipient Signature: Yes Med Rec Note Co-signed by Attending: Coverage Notice Comment: ERIN for [facility] Last DP export: 01/09/19 2:33 p Patient Name: CYNDIE CAMACHO Page [id number] at 1430 All edits/amendments must be made on the electronic document DICTATION DATE: 01/10/19 1430 GUIDE FOREIGN TOUR: BE 01/10/19 1430 RPT#: [id number] DC DATE:01/09/19 STATUS: DIS IN [facility] [address] [place] [address] END OF REPORT
== END 2019-01-09 16:34 | disposition home health service (06) | DRG 440 ==
LOC: D.MS 12:05
PROVIDERS: Internal Medicine Nephrology; ADMIT Family Medicine; ATTEND Family Medicine
DX: K86.1 Other chronic pancreatitis (principal); D64.9 Anemia, unspecified; G62.9 Polyneuropathy, unspecified; K21.9 Gastro-esophageal reflux disease without esophagitis; I34.0 Nonrheumatic mitral (valve) insufficiency; K59.00 Constipation, unspecified

== ENCOUNTER 2019-02-13 10:49 | Outpatient (CLI) | payer BC, MEDICAID ==
[~2019-02-13] VITALS: Ht 165.1 cm; Wt 63.6 kg
[~2019-02-13 10:49] MED LIST changes: +MIRALAX17 GM PO; +ZOFRAN4 MG PO
[2019-02-13 11:45] VITALS: Ht 165.1 cm; Wt 63.6 kg
== END 2019-02-13 11:55 ==
LOC: D.OPS 10:49
PROVIDERS: ATTEND Family Medicine
DX: K86.1 Other chronic pancreatitis (principal)

== ENCOUNTER → 2019-07-14 12:55 | Outpatient (CLI) | payer BC ==
[2019-02-13 11:45] VITALS: BMI 23.3
[2019-07-14 13:18] LABS: CALC OSMOLALITY 284 mosm/kg (275-300); CALCIUM 8.6 mg/dL (8.5-10.1); CARBON DIOXIDE 28.1 mmol/L (21.0-32.0); CHLORIDE - SERUM 109 mmol/L (98-107); CREATININE - SERUM 0.7 mg/dL (0.6-1.3); GLUCOSE 89 mg/dL (74-106); SODIUM 145 mmol/L (136-145); UREA NITROGEN 5 mg/dL (7-18); eGFR NON AFRICAN AMERICAN > 90 mL/min (90-120)
== END | disposition home or self-care (01) ==
LOC: D.LABREF 12:55
PROVIDERS: ATTEND Family Medicine
DX: K86.1 Other chronic pancreatitis (principal); I77.4 Celiac artery compression syndrome

== ENCOUNTER → 2019-07-21 17:05 | Outpatient (CLI) | payer BC ==
[2019-02-13 11:45] VITALS: BMI 23.3
[2019-07-21 18:21] LABS: HEMATOCRIT 30.2 % (36.0-48.0); HEMOGLOBIN 9.2 g/dL (12-16); LYMPHOCYTES 34.7 % (15-50); MCH 24.7 pg (26.0-34.0); MCHC 30.5 g/dL (31.0-37.0); MEAN PLATELET VOLUME 10.7 fL (7.4-10.4); NEUTROPHILS 55.5 % (40-80); RBC 3.73 10x6/uL (4.00-5.40); RDW 13.3 % (11.5-14.5); WBC 4.8 10x3/uL (4.8-10.8)
[2019-07-21 18:22] LABS: PLATELET COUNT 234 10x3/uL (130-400)
[2019-07-21 18:45] LABS: ALBUMIN 3.5 g/dL (3.4-5.0); ALKALINE PHOSPHATASE 57 U/L (30-120); ALT (SGPT) 18 U/L (10-68); AMYLASE - SERUM 100 U/L (25-115); BILIRUBIN - DIRECT 0.06 mg/dL (0.00-0.30); BILIRUBIN - TOTAL 0.27 mg/dL (0.2-1.3); CALC OSMOLALITY 286 mosm/kg (275-300); CALCIUM 8.6 mg/dL (8.5-10.1); CARBON DIOXIDE 28.1 mmol/L (21.0-32.0); CHLORIDE - SERUM 109 mmol/L (98-107); CREATININE - SERUM 0.7 mg/dL (0.6-1.3); GLUCOSE 102 mg/dL (74-106); LIPASE 613 U/L (73-393); POTASSIUM - SERUM 3.5 mmol/L (3.5-5.1); PROTEIN - SERUM 6.6 g/dL (6.4-8.2); SODIUM 145 mmol/L (136-145); UREA NITROGEN 6 mg/dL (7-18); eGFR NON AFRICAN AMERICAN > 90 mL/min (90-120)
== END | disposition home or self-care (01) ==
LOC: D.LABREF 17:05
PROVIDERS: ATTEND Family Medicine
DX: K86.1 Other chronic pancreatitis (principal); I77.4 Celiac artery compression syndrome

== ENCOUNTER → 2019-07-28 14:57 | Outpatient (CLI) | payer BC ==
[2019-02-13 11:45] VITALS: BMI 23.3
[2019-07-28 15:08] LABS: BASOPHILS 0.2 % (0-2); HEMATOCRIT 29.5 % (36.0-48.0); HEMOGLOBIN 8.9 g/dL (12-16); IMMATURE GRANULOCYTES 0.2 % (0-5); LYMPHOCYTES 32.7 % (15-50); MCH 24.6 pg (26.0-34.0); MCHC 30.2 g/dL (31.0-37.0); MCV 81.5 fL (80.0-100.0); MEAN PLATELET VOLUME 10.5 fL (7.4-10.4); MONOCYTES 11.2 % (2-11); NEUTROPHILS 54.7 % (40-80); PLATELET COUNT 240 10x3/uL (130-400); RBC 3.62 10x6/uL (4.00-5.40); RDW 13.5 % (11.5-14.5); WBC 5.1 10x3/uL (4.8-10.8)
[2019-07-28 15:26] LABS: ALBUMIN 3.5 g/dL (3.4-5.0); ALKALINE PHOSPHATASE 59 U/L (30-120); ALT (SGPT) 16 U/L (10-68); AMYLASE - SERUM 90 U/L (25-115); BILIRUBIN - INDIRECT 0.28 mg/dL (0.00-1.00); BILIRUBIN - TOTAL 0.38 mg/dL (0.2-1.3); CALC OSMOLALITY 282 mosm/kg (275-300); CALCIUM 8.9 mg/dL (8.5-10.1); CARBON DIOXIDE 27.5 mmol/L (21.0-32.0); CHLORIDE - SERUM 109 mmol/L (98-107); CREATININE - SERUM 0.6 mg/dL (0.6-1.3); GLUCOSE 96 mg/dL (74-106); LIPASE 407 U/L (73-393); POTASSIUM - SERUM 3.8 mmol/L (3.5-5.1); PROTEIN - SERUM 6.6 g/dL (6.4-8.2); SODIUM 143 mmol/L (136-145); UREA NITROGEN 7 mg/dL (7-18); eGFR NON AFRICAN AMERICAN > 90 mL/min (90-120)
== END | disposition home or self-care (01) ==
LOC: D.LABREF 14:57
PROVIDERS: ATTEND Family Medicine
DX: K86.1 Other chronic pancreatitis (principal); I77.4 Celiac artery compression syndrome

== ENCOUNTER → 2019-08-04 14:23 | Outpatient (CLI) | payer BC ==
[2019-02-13 11:45] VITALS: BMI 23.3
[2019-08-04 15:39] LABS: BASOPHILS 0.1 % (0-2); EOSINOPHILS 0.9 % (0-7); HEMATOCRIT 31.4 % (36.0-48.0); HEMOGLOBIN 9.4 g/dL (12-16); IMMATURE GRANULOCYTES 0.1 % (0-5); LYMPHOCYTES 22.4 % (15-50); MCH 24.2 pg (26.0-34.0); MCHC 29.9 g/dL (31.0-37.0); MCV 80.9 fL (80.0-100.0); MEAN PLATELET VOLUME 10.2 fL (7.4-10.4); MONOCYTES 8.5 % (2-11); PLATELET COUNT 275 10x3/uL (130-400); RBC 3.88 10x6/uL (4.00-5.40); RDW 13.8 % (11.5-14.5); WBC 6.7 10x3/uL (4.8-10.8)
[2019-08-04 15:50] LABS: ALBUMIN 3.6 g/dL (3.4-5.0); ALKALINE PHOSPHATASE 56 U/L (30-120); ALT (SGPT) 17 U/L (10-68); AMYLASE - SERUM 87 U/L (25-115); BILIRUBIN - DIRECT 0.09 mg/dL (0.00-0.30); BILIRUBIN - TOTAL 0.25 mg/dL (0.2-1.3); CALC OSMOLALITY 276 mosm/kg (275-300); CALCIUM 8.5 mg/dL (8.5-10.1); CARBON DIOXIDE 24.7 mmol/L (21.0-32.0); CHLORIDE - SERUM 105 mmol/L (98-107); CREATININE - SERUM 0.8 mg/dL (0.6-1.3); GLUCOSE 117 mg/dL (74-106); LIPASE 371 U/L (73-393); POTASSIUM - SERUM 3.8 mmol/L (3.5-5.1); PROTEIN - SERUM 6.9 g/dL (6.4-8.2); SODIUM 139 mmol/L (136-145); UREA NITROGEN 7 mg/dL (7-18); eGFR NON AFRICAN AMERICAN 87 mL/min (90-120)
== END | disposition home or self-care (01) ==
LOC: D.LABREF 14:23
PROVIDERS: ATTEND Family Medicine
DX: K86.1 Other chronic pancreatitis (principal); I77.4 Celiac artery compression syndrome

== ENCOUNTER → 2019-08-11 16:24 | Outpatient (CLI) | payer BC ==
[2019-02-13 11:45] VITALS: BMI 23.3
[2019-08-11 16:36] LABS: BASOPHILS 0.4 % (0-2); EOSINOPHILS 0.9 % (0-7); HEMATOCRIT 27.6 % (36.0-48.0); HEMOGLOBIN 8.2 g/dL (12-16); LYMPHOCYTES 27.9 % (15-50); MCH 24.2 pg (26.0-34.0); MCHC 29.7 g/dL (31.0-37.0); MCV 81.4 fL (80.0-100.0); MEAN PLATELET VOLUME 10.5 fL (7.4-10.4); NEUTROPHILS 59.8 % (40-80); PLATELET COUNT 253 10x3/uL (130-400); RBC 3.39 10x6/uL (4.00-5.40); RDW 14.1 % (11.5-14.5); WBC 4.6 10x3/uL (4.8-10.8)
[2019-08-11 16:57] LABS: % SATURATION 6 % (15-55); IRON 22 ug/dl (35-150); TOTAL IRON BIND CAPACITY 366 ug/dl (260-445); UNSAT IRON BIND CAPACITY 344 ug/dl (150-375)
[2019-08-11 17:12] LABS: ALBUMIN 3.4 g/dL (3.4-5.0); ALKALINE PHOSPHATASE 39 U/L (30-120); ALT (SGPT) 15 U/L (10-68); AMYLASE - SERUM 77 U/L (25-115); BILIRUBIN - INDIRECT 0.23 mg/dL (0.00-1.00); BILIRUBIN - TOTAL 0.33 mg/dL (0.2-1.3); CALC OSMOLALITY 280 mosm/kg (275-300); CALCIUM 8.1 mg/dL (8.5-10.1); CHLORIDE - SERUM 108 mmol/L (98-107); CREATININE - SERUM 0.8 mg/dL (0.6-1.3); FERRITIN 7 ng/mL (3-244); GLUCOSE 99 mg/dL (74-106); LIPASE 335 U/L (73-393); POTASSIUM - SERUM 3.7 mmol/L (3.5-5.1); PROTEIN - SERUM 6.3 g/dL (6.4-8.2); SODIUM 142 mmol/L (136-145); UREA NITROGEN 6 mg/dL (7-18); eGFR NON AFRICAN AMERICAN 87 mL/min (90-120)
== END | disposition home or self-care (01) ==
LOC: D.LABREF 16:24
PROVIDERS: ATTEND Family Medicine
DX: K86.1 Other chronic pancreatitis (principal); I77.4 Celiac artery compression syndrome

== ENCOUNTER → 2019-08-18 18:40 | Outpatient (CLI) | payer BC ==
[2019-02-13 11:45] VITALS: BMI 23.3
[2019-08-18 19:16] LABS: BASOPHILS 0.3 % (0-2); EOSINOPHILS 1.8 % (0-7); HEMATOCRIT 33.7 % (36.0-48.0); HEMOGLOBIN 10.1 g/dL (12-16); IMMATURE GRANULOCYTES 0.3 % (0-5); LYMPHOCYTES 38.6 % (15-50); MCH 25.1 pg (26.0-34.0); MCV 83.8 fL (80.0-100.0); MEAN PLATELET VOLUME 10.6 fL (7.4-10.4); MONOCYTES 8.2 % (2-11); NEUTROPHILS 50.8 % (40-80); PLATELET COUNT 296 10x3/uL (130-400); RBC 4.02 10x6/uL (4.00-5.40); RDW 15.1 % (11.5-14.5); WBC 6.1 10x3/uL (4.8-10.8)
[2019-08-18 19:23] LABS: ALBUMIN 3.7 g/dL (3.4-5.0); ALKALINE PHOSPHATASE 62 U/L (30-120); ALT (SGPT) 21 U/L (10-68); AMYLASE - SERUM 83 U/L (25-115); BILIRUBIN - TOTAL 0.21 mg/dL (0.2-1.3); CALC OSMOLALITY 278 mosm/kg (275-300); CALCIUM 8.2 mg/dL (8.5-10.1); CHLORIDE - SERUM 106 mmol/L (98-107); CREATININE - SERUM 0.7 mg/dL (0.6-1.3); GLUCOSE 113 mg/dL (74-106); LIPASE 325 U/L (73-393); POTASSIUM - SERUM 4.2 mmol/L (3.5-5.1); PROTEIN - SERUM 6.8 g/dL (6.4-8.2); SODIUM 140 mmol/L (136-145); UREA NITROGEN 9 mg/dL (7-18); eGFR NON AFRICAN AMERICAN > 90 mL/min (90-120)
== END | disposition home or self-care (01) ==
LOC: D.LABREF 18:40
PROVIDERS: ATTEND Family Medicine
DX: K86.1 Other chronic pancreatitis (principal); I77.4 Celiac artery compression syndrome

== ENCOUNTER 2019-08-22 19:49 | Emergency (ER) | payer BC ==
[~2019-08-22] VITALS: Ht 165.1 cm; Wt 54.5 kg
[2019-08-22 19:57] VITALS: Ht 165.1 cm; Wt 54.5 kg
[2019-08-22] MEDS ORDERED: EZFE 200200 MG PO (20:00)
[2019-08-22 20:28] LABS: BASOPHILS 0.2 % (0-2); EOSINOPHILS 1.3 % (0-7); HEMATOCRIT 35.5 % (36.0-48.0); HEMOGLOBIN 10.8 g/dL (12-16); IMMATURE GRANULOCYTES 0.2 % (0-5); LYMPHOCYTES 33.3 % (15-50); MCH 25.4 pg (26.0-34.0); MCHC 30.4 g/dL (31.0-37.0); MCV 83.5 fL (80.0-100.0); MEAN PLATELET VOLUME 9.7 fL (7.4-10.4); PLATELET COUNT 248 10x3/uL (130-400); RBC 4.25 10x6/uL (4.00-5.40); RDW 15.4 % (11.5-14.5); WBC 6.4 10x3/uL (4.8-10.8)
[2019-08-22 20:39] LABS: CALC OSMOLALITY 279 mosm/kg (275-300); CALCIUM 8.5 mg/dL (8.5-10.1); CARBON DIOXIDE 25.2 mmol/L (21.0-32.0); CHLORIDE - SERUM 106 mmol/L (98-107); CREATININE - SERUM 0.6 mg/dL (0.6-1.3); GLUCOSE 97 mg/dL (74-106); POTASSIUM - SERUM 3.1 mmol/L (3.5-5.1); SODIUM 141 mmol/L (136-145); UREA NITROGEN 10 mg/dL (7-18); eGFR NON AFRICAN AMERICAN > 90 mL/min (90-120)
[2019-08-22 20:43] LABS: ALBUMIN 3.9 g/dL (3.4-5.0); ALKALINE PHOSPHATASE 65 U/L (30-120); ALT (SGPT) 23 U/L (10-68); AMYLASE - SERUM 94 U/L (25-115); BILIRUBIN - TOTAL 0.21 mg/dL (0.2-1.3); LIPASE 376 U/L (73-393); PROTEIN - SERUM 7.5 g/dL (6.4-8.2)
[2019-08-22 21:53] VITALS: BP 103/62
== END 2019-08-22 21:54 | disposition home or self-care (01) ==
LOC: D.ER 19:49
PROVIDERS: Family Medicine
DX: T85.9XXA Unspecified complication of internal prosthetic device, implant and graft, initial encounter (principal); R07.89 Other chest pain; Z87.19 Personal history of other diseases of the digestive system

== ENCOUNTER → 2019-08-25 15:47 | Outpatient (CLI) | payer BC ==
[~2019-08-25 15:47] MED LIST changes: +EZFE 200200 MG PO
[2019-08-25 16:01] LABS: BASOPHILS 0.2 % (0-2); EOSINOPHILS 0.9 % (0-7); HEMATOCRIT 32.6 % (36.0-48.0); HEMOGLOBIN 9.9 g/dL (12-16); IMMATURE GRANULOCYTES 0.2 % (0-5); LYMPHOCYTES 29.8 % (15-50); MCH 25.3 pg (26.0-34.0); MCHC 30.4 g/dL (31.0-37.0); MCV 83.4 fL (80.0-100.0); MONOCYTES 9.4 % (2-11); NEUTROPHILS 59.5 % (40-80); PLATELET COUNT 233 10x3/uL (130-400); RBC 3.91 10x6/uL (4.00-5.40); RDW 15.5 % (11.5-14.5); WBC 5.9 10x3/uL (4.8-10.8)
[2019-08-25 16:15] LABS: ALBUMIN 3.5 g/dL (3.4-5.0); ALKALINE PHOSPHATASE 58 U/L (30-120); ALT (SGPT) 26 U/L (10-68); AMYLASE - SERUM 78 U/L (25-115); BILIRUBIN - DIRECT 0.11 mg/dL (0.00-0.30); BILIRUBIN - INDIRECT 0.28 mg/dL (0.00-1.00); BILIRUBIN - TOTAL 0.39 mg/dL (0.2-1.3); CALC OSMOLALITY 278 mosm/kg (275-300); CALCIUM 8.8 mg/dL (8.5-10.1); CARBON DIOXIDE 25.6 mmol/L (21.0-32.0); CHLORIDE - SERUM 104 mmol/L (98-107); CREATININE - SERUM 0.6 mg/dL (0.6-1.3); GLUCOSE 90 mg/dL (74-106); LIPASE 214 U/L (73-393); POTASSIUM - SERUM 3.9 mmol/L (3.5-5.1); PROTEIN - SERUM 6.8 g/dL (6.4-8.2); SODIUM 140 mmol/L (136-145); UREA NITROGEN 12 mg/dL (7-18); eGFR NON AFRICAN AMERICAN > 90 mL/min (90-120)
== END | disposition home or self-care (01) ==
LOC: D.LABREF 15:47
PROVIDERS: ATTEND Family Medicine
DX: K86.1 Other chronic pancreatitis (principal); I77.4 Celiac artery compression syndrome

== ENCOUNTER → 2019-09-01 21:16 | Outpatient (CLI) | payer BC ==
[2019-09-01 21:41] LABS: BASOPHILS 0.4 % (0-2); EOSINOPHILS 0.9 % (0-7); HEMATOCRIT 33.8 % (36.0-48.0); HEMOGLOBIN 10.4 g/dL (12-16); IMMATURE GRANULOCYTES 0.2 % (0-5); LYMPHOCYTES 32.7 % (15-50); MCH 25.6 pg (26.0-34.0); MCHC 30.8 g/dL (31.0-37.0); MEAN PLATELET VOLUME 10.6 fL (7.4-10.4); MONOCYTES 12.1 % (2-11); NEUTROPHILS 53.7 % (40-80); PLATELET COUNT 263 10x3/uL (130-400); RBC 4.07 10x6/uL (4.00-5.40); RDW 16.2 % (11.5-14.5); WBC 5.6 10x3/uL (4.8-10.8)
[2019-09-01 22:01] LABS: % SATURATION 6 % (15-55); IRON 27 ug/dl (35-150); TOTAL IRON BIND CAPACITY 408 ug/dl (260-445); UNSAT IRON BIND CAPACITY 381 ug/dl (150-375)
[2019-09-01 22:11] LABS: ALBUMIN 3.7 g/dL (3.4-5.0); ALKALINE PHOSPHATASE 53 U/L (30-120); ALT (SGPT) 26 U/L (10-68); AMYLASE - SERUM 90 U/L (25-115); BILIRUBIN - DIRECT 0.07 mg/dL (0.00-0.30); BILIRUBIN - TOTAL 0.25 mg/dL (0.2-1.3); CALCIUM 8.7 mg/dL (8.5-10.1); CARBON DIOXIDE 21.4 mmol/L (21.0-32.0); CHLORIDE - SERUM 104 mmol/L (98-107); CREATININE - SERUM 0.7 mg/dL (0.6-1.3); FERRITIN 8 ng/mL (3-244); LIPASE 326 U/L (73-393); POTASSIUM - SERUM 4.2 mmol/L (3.5-5.1); PROTEIN - SERUM 7.2 g/dL (6.4-8.2); SODIUM 141 mmol/L (136-145); eGFR NON AFRICAN AMERICAN > 90 mL/min (90-120)
[2019-09-01 22:27] LABS: GLUCOSE 62 mg/dL (74-106)
[2019-09-01 22:36] LABS: CALC OSMOLALITY 279 mosm/kg (275-300); UREA NITROGEN 15 mg/dL (7-18)
== END | disposition home or self-care (01) ==
LOC: D.LABREF 21:16
PROVIDERS: ATTEND Family Medicine
DX: K86.1 Other chronic pancreatitis (principal); I77.4 Celiac artery compression syndrome

== ENCOUNTER → 2019-09-08 17:18 | Outpatient (CLI) | payer BC ==
[2019-09-08 17:32] LABS: HEMOGLOBIN 9.7 g/dL (12-16); LYMPHOCYTES 32.8 % (15-50); MCH 25.5 pg (26.0-34.0); MCHC 31.3 g/dL (31.0-37.0); MCV 81.6 fL (80.0-100.0); MEAN PLATELET VOLUME 11.1 fL (7.4-10.4); NEUTROPHILS 57.8 % (40-80); PLATELET COUNT 256 10x3/uL (130-400); RDW 15.7 % (11.5-14.5)
[2019-09-08 17:44] LABS: ALBUMIN 3.4 g/dL (3.4-5.0); ALKALINE PHOSPHATASE 49 U/L (30-120); ALT (SGPT) 18 U/L (10-68); AMYLASE - SERUM 74 U/L (25-115); BILIRUBIN - DIRECT 0.06 mg/dL (0.00-0.30); BILIRUBIN - INDIRECT 0.13 mg/dL (0.00-1.00); BILIRUBIN - TOTAL 0.19 mg/dL (0.2-1.3); CALC OSMOLALITY 276 mosm/kg (275-300); CALCIUM 8.1 mg/dL (8.5-10.1); CARBON DIOXIDE 24.9 mmol/L (21.0-32.0); CHLORIDE - SERUM 107 mmol/L (98-107); CREATININE - SERUM 0.7 mg/dL (0.6-1.3); LIPASE 243 U/L (73-393); POTASSIUM - SERUM 3.8 mmol/L (3.5-5.1); PROTEIN - SERUM 6.5 g/dL (6.4-8.2); SODIUM 140 mmol/L (136-145); UREA NITROGEN 7 mg/dL (7-18); eGFR NON AFRICAN AMERICAN > 90 mL/min (90-120)
[2019-09-08 17:57] LABS: GLUCOSE 103 mg/dL (74-106)
== END | disposition home or self-care (01) ==
LOC: D.LABREF 17:18
PROVIDERS: ATTEND Family Medicine
DX: K86.1 Other chronic pancreatitis (principal); I77.4 Celiac artery compression syndrome

== ENCOUNTER → 2019-09-16 15:34 | Outpatient (CLI) | payer BC ==
[2019-09-16 16:38] LABS: BASOPHILS 0.5 % (0-2); HEMOGLOBIN 10.1 g/dL (12-16); LYMPHOCYTES 38.6 % (15-50); MCH 25.4 pg (26.0-34.0); MCHC 30.6 g/dL (31.0-37.0); MCV 82.9 fL (80.0-100.0); MEAN PLATELET VOLUME 10.8 fL (7.4-10.4); MONOCYTES 8.1 % (2-11); NEUTROPHILS 50.8 % (40-80); PLATELET COUNT 218 10x3/uL (130-400); RBC 3.98 10x6/uL (4.00-5.40); RDW 15.9 % (11.5-14.5); WBC 4.1 10x3/uL (4.8-10.8)
[2019-09-16 16:49] LABS: ALBUMIN 3.5 g/dL (3.4-5.0); ALKALINE PHOSPHATASE 49 U/L (30-120); ALT (SGPT) 16 U/L (10-68); AMYLASE - SERUM 75 U/L (25-115); BILIRUBIN - DIRECT 0.06 mg/dL (0.00-0.30); BILIRUBIN - INDIRECT 0.23 mg/dL (0.00-1.00); BILIRUBIN - TOTAL 0.29 mg/dL (0.2-1.3); CALC OSMOLALITY 277 mosm/kg (275-300); CALCIUM 8.5 mg/dL (8.5-10.1); CARBON DIOXIDE 25.4 mmol/L (21.0-32.0); CHLORIDE - SERUM 107 mmol/L (98-107); CREATININE - SERUM 0.7 mg/dL (0.6-1.3); GLUCOSE 85 mg/dL (74-106); LIPASE 253 U/L (73-393); PROTEIN - SERUM 6.5 g/dL (6.4-8.2); SODIUM 141 mmol/L (136-145); UREA NITROGEN 7 mg/dL (7-18); eGFR NON AFRICAN AMERICAN > 90 mL/min (90-120)
== END | disposition home or self-care (01) ==
LOC: D.LABREF 15:34
PROVIDERS: ATTEND Family Medicine
DX: K86.1 Other chronic pancreatitis (principal); I77.4 Celiac artery compression syndrome

== ENCOUNTER → 2019-09-23 15:34 | Outpatient (CLI) | payer BC ==
[2019-09-23 16:15] LABS: BASOPHILS 0.5 % (0-2); EOSINOPHILS 1.6 % (0-7); HEMATOCRIT 33.2 % (36.0-48.0); HEMOGLOBIN 10.2 g/dL (12-16); IMMATURE GRANULOCYTES 0.2 % (0-5); LYMPHOCYTES 36.1 % (15-50); MCH 25.2 pg (26.0-34.0); MCHC 30.7 g/dL (31.0-37.0); MEAN PLATELET VOLUME 10.2 fL (7.4-10.4); NEUTROPHILS 50.6 % (40-80); PLATELET COUNT 214 10x3/uL (130-400); RBC 4.05 10x6/uL (4.00-5.40); RDW 15.4 % (11.5-14.5); WBC 4.3 10x3/uL (4.8-10.8)
[2019-09-23 16:28] LABS: ALBUMIN 3.5 g/dL (3.4-5.0); ALKALINE PHOSPHATASE 54 U/L (30-120); ALT (SGPT) 19 U/L (10-68); AMYLASE - SERUM 78 U/L (25-115); BILIRUBIN - DIRECT 0.09 mg/dL (0.00-0.30); BILIRUBIN - TOTAL 0.35 mg/dL (0.2-1.3); CALC OSMOLALITY 276 mosm/kg (275-300); CALCIUM 8.5 mg/dL (8.5-10.1); CARBON DIOXIDE 28.4 mmol/L (21.0-32.0); CHLORIDE - SERUM 106 mmol/L (98-107); CREATININE - SERUM 0.8 mg/dL (0.6-1.3); GLUCOSE 80 mg/dL (74-106); LIPASE 212 U/L (73-393); POTASSIUM - SERUM 3.8 mmol/L (3.5-5.1); PROTEIN - SERUM 6.7 g/dL (6.4-8.2); SODIUM 140 mmol/L (136-145); UREA NITROGEN 9 mg/dL (7-18); eGFR NON AFRICAN AMERICAN 87 mL/min (90-120)
== END | disposition home or self-care (01) ==
LOC: D.LABREF 15:34
PROVIDERS: ATTEND Family Medicine
DX: K86.1 Other chronic pancreatitis (principal); I77.4 Celiac artery compression syndrome

== ENCOUNTER → 2019-09-30 16:10 | Outpatient (CLI) | payer BC ==
[2019-09-30 17:37] LABS: BASOPHILS 0.2 % (0-2); EOSINOPHILS 1.8 % (0-7); HEMATOCRIT 31.4 % (36.0-48.0); HEMOGLOBIN 9.5 g/dL (12-16); LYMPHOCYTES 39.9 % (15-50); MCH 25.1 pg (26.0-34.0); MCHC 30.3 g/dL (31.0-37.0); MCV 82.8 fL (80.0-100.0); MEAN PLATELET VOLUME 10.6 fL (7.4-10.4); MONOCYTES 9.1 % (2-11); PLATELET COUNT 222 10x3/uL (130-400); RBC 3.79 10x6/uL (4.00-5.40); RDW 15.5 % (11.5-14.5); WBC 4.4 10x3/uL (4.8-10.8)
[2019-09-30 17:38] LABS: ALBUMIN 3.5 g/dL (3.4-5.0); ALKALINE PHOSPHATASE 53 U/L (30-120); ALT (SGPT) 20 U/L (10-68); AMYLASE - SERUM 70 U/L (25-115); BILIRUBIN - DIRECT 0.07 mg/dL (0.00-0.30); BILIRUBIN - TOTAL 0.27 mg/dL (0.2-1.3); CALC OSMOLALITY 277 mosm/kg (275-300); CALCIUM 8.5 mg/dL (8.5-10.1); CARBON DIOXIDE 26.2 mmol/L (21.0-32.0); CHLORIDE - SERUM 106 mmol/L (98-107); CREATININE - SERUM 0.9 mg/dL (0.6-1.3); GLUCOSE 78 mg/dL (74-106); LIPASE 167 U/L (73-393); POTASSIUM - SERUM 3.4 mmol/L (3.5-5.1); PROTEIN - SERUM 6.5 g/dL (6.4-8.2); SODIUM 141 mmol/L (136-145); UREA NITROGEN 6 mg/dL (7-18); eGFR NON AFRICAN AMERICAN 76 mL/min (90-120)
== END | disposition home or self-care (01) ==
LOC: D.LABREF 16:10
PROVIDERS: ATTEND Family Medicine
DX: K86.1 Other chronic pancreatitis (principal); I77.4 Celiac artery compression syndrome

== ENCOUNTER → 2019-10-08 18:13 | Outpatient (CLI) | payer BC ==
[2019-10-08 18:27] LABS: BASOPHILS 0.2 % (0-2); EOSINOPHILS 0.3 % (0-7); HEMATOCRIT 32.4 % (36.0-48.0); HEMOGLOBIN 10.1 g/dL (12-16); IMMATURE GRANULOCYTES 0.2 % (0-5); LYMPHOCYTES 22.1 % (15-50); MCH 25.5 pg (26.0-34.0); MCHC 31.2 g/dL (31.0-37.0); MCV 81.8 fL (80.0-100.0); MEAN PLATELET VOLUME 10.6 fL (7.4-10.4); MONOCYTES 8.4 % (2-11); NEUTROPHILS 68.8 % (40-80); PLATELET COUNT 263 10x3/uL (130-400); RBC 3.96 10x6/uL (4.00-5.40); RDW 15.4 % (11.5-14.5)
[2019-10-08 18:57] LABS: ALBUMIN 3.7 g/dL (3.4-5.0); ALKALINE PHOSPHATASE 65 U/L (30-120); ALT (SGPT) 39 U/L (10-68); AMYLASE - SERUM 67 U/L (25-115); BILIRUBIN - TOTAL 0.32 mg/dL (0.2-1.3); CALC OSMOLALITY 275 mosm/kg (275-300); CALCIUM 8.9 mg/dL (8.5-10.1); CARBON DIOXIDE 22.3 mmol/L (21.0-32.0); CHLORIDE - SERUM 107 mmol/L (98-107); CREATININE - SERUM 0.7 mg/dL (0.6-1.3); GLUCOSE 84 mg/dL (74-106); LIPASE 170 U/L (73-393); POTASSIUM - SERUM 3.8 mmol/L (3.5-5.1); SODIUM 139 mmol/L (136-145); UREA NITROGEN 9 mg/dL (7-18); eGFR NON AFRICAN AMERICAN > 90 mL/min (90-120)
== END | disposition home or self-care (01) ==
LOC: D.LABREF 18:13
PROVIDERS: ATTEND Family Medicine
DX: K86.1 Other chronic pancreatitis (principal); I77.4 Celiac artery compression syndrome

== ENCOUNTER → 2019-10-14 14:01 | Outpatient (CLI) | payer BC ==
[2019-10-14 15:07] LABS: ALBUMIN 3.5 g/dL (3.4-5.0); ALKALINE PHOSPHATASE 50 U/L (30-120); ALT (SGPT) 27 U/L (10-68); AMYLASE - SERUM 88 U/L (25-115); BASOPHILS 0.2 % (0-2); BILIRUBIN - DIRECT 0.12 mg/dL (0.00-0.30); BILIRUBIN - TOTAL 0.29 mg/dL (0.2-1.3); CALC OSMOLALITY 279 mosm/kg (275-300); CALCIUM 8.1 mg/dL (8.5-10.1); CARBON DIOXIDE 28.3 mmol/L (21.0-32.0); CHLORIDE - SERUM 106 mmol/L (98-107); CREATININE - SERUM 0.8 mg/dL (0.6-1.3); EOSINOPHILS 1.5 % (0-7); GLUCOSE 92 mg/dL (74-106); HEMATOCRIT 30.8 % (36.0-48.0); HEMOGLOBIN 9.5 g/dL (12-16); LIPASE 374 U/L (73-393); MCH 25.4 pg (26.0-34.0); MCHC 30.8 g/dL (31.0-37.0); MCV 82.4 fL (80.0-100.0); MEAN PLATELET VOLUME 10.6 fL (7.4-10.4); MONOCYTES 9.8 % (2-11); NEUTROPHILS 67.5 % (40-80); PLATELET COUNT 242 10x3/uL (130-400); POTASSIUM - SERUM 4.2 mmol/L (3.5-5.1); PROTEIN - SERUM 6.4 g/dL (6.4-8.2); RBC 3.74 10x6/uL (4.00-5.40); RDW 15.1 % (11.5-14.5); SODIUM 141 mmol/L (136-145); UREA NITROGEN 9 mg/dL (7-18); WBC 4.7 10x3/uL (4.8-10.8); eGFR NON AFRICAN AMERICAN 87 mL/min (90-120)
== END | disposition home or self-care (01) ==
LOC: D.LABREF 14:01
PROVIDERS: ATTEND Family Medicine
DX: K86.1 Other chronic pancreatitis (principal); I77.4 Celiac artery compression syndrome

== ENCOUNTER → 2019-10-19 17:38 | Outpatient (CLI) | payer BC ==
[2019-10-19 18:01] LABS: HEMATOCRIT 30.1 % (36.0-48.0); HEMOGLOBIN 9.4 g/dL (12-16); LYMPHOCYTES 42.6 % (15-50); MCH 25.3 pg (26.0-34.0); MCHC 31.2 g/dL (31.0-37.0); MCV 80.9 fL (80.0-100.0); MEAN PLATELET VOLUME 10.5 fL (7.4-10.4); PLATELET COUNT 240 10x3/uL (130-400); RBC 3.72 10x6/uL (4.00-5.40); RDW 13.7 % (11.5-14.5); WBC 4.7 10x3/uL (4.8-10.8)
[2019-10-19 18:13] LABS: ALBUMIN 3.4 g/dL (3.4-5.0); ALKALINE PHOSPHATASE 50 U/L (30-120); ALT (SGPT) 17 U/L (10-68); AMYLASE - SERUM 76 U/L (25-115); BILIRUBIN - DIRECT 0.06 mg/dL (0.00-0.30); BILIRUBIN - INDIRECT 0.18 mg/dL (0.00-1.00); BILIRUBIN - TOTAL 0.24 mg/dL (0.2-1.3); CALC OSMOLALITY 277 mosm/kg (275-300); CARBON DIOXIDE 27.4 mmol/L (21.0-32.0); CHLORIDE - SERUM 106 mmol/L (98-107); CREATININE - SERUM 0.8 mg/dL (0.6-1.3); GLUCOSE 99 mg/dL (74-106); LIPASE 246 U/L (73-393); POTASSIUM - SERUM 3.8 mmol/L (3.5-5.1); PROTEIN - SERUM 6.3 g/dL (6.4-8.2); SODIUM 140 mmol/L (136-145); UREA NITROGEN 9 mg/dL (7-18); eGFR NON AFRICAN AMERICAN 87 mL/min (90-120)
== END | disposition home or self-care (01) ==
LOC: D.LABREF 17:38
PROVIDERS: ATTEND Family Medicine
DX: K86.1 Other chronic pancreatitis (principal); I77.4 Celiac artery compression syndrome

== ENCOUNTER → 2019-10-28 19:28 | Outpatient (CLI) | payer BC ==
[2019-10-28 20:16] LABS: BASOPHILS 0.3 % (0-2); EOSINOPHILS 0.9 % (0-7); HEMATOCRIT 30.5 % (36.0-48.0); HEMOGLOBIN 9.5 g/dL (12-16); LYMPHOCYTES 31.3 % (15-50); MCH 25.1 pg (26.0-34.0); MCHC 31.1 g/dL (31.0-37.0); MCV 80.7 fL (80.0-100.0); MEAN PLATELET VOLUME 10.6 fL (7.4-10.4); MONOCYTES 7.7 % (2-11); NEUTROPHILS 59.8 % (40-80); PLATELET COUNT 203 10x3/uL (130-400); RBC 3.78 10x6/uL (4.00-5.40); RDW 13.9 % (11.5-14.5); WBC 5.8 10x3/uL (4.8-10.8)
[2019-10-28 20:36] LABS: ALBUMIN 3.5 g/dL (3.4-5.0); ALKALINE PHOSPHATASE 64 U/L (30-120); ALT (SGPT) 24 U/L (10-68); AMYLASE - SERUM 77 U/L (25-115); BILIRUBIN - DIRECT 0.12 mg/dL (0.00-0.30); CALC OSMOLALITY 278 mosm/kg (275-300); CALCIUM 7.9 mg/dL (8.5-10.1); CARBON DIOXIDE 28.4 mmol/L (21.0-32.0); CHLORIDE - SERUM 107 mmol/L (98-107); CREATININE - SERUM 0.7 mg/dL (0.6-1.3); GLUCOSE 107 mg/dL (74-106); LIPASE 219 U/L (73-393); POTASSIUM - SERUM 3.6 mmol/L (3.5-5.1); PROTEIN - SERUM 6.2 g/dL (6.4-8.2); SODIUM 141 mmol/L (136-145); UREA NITROGEN 6 mg/dL (7-18); eGFR NON AFRICAN AMERICAN > 90 mL/min (90-120)
== END | disposition home or self-care (01) ==
LOC: D.LABREF 19:28
PROVIDERS: ATTEND Family Medicine
DX: K86.1 Other chronic pancreatitis (principal); I77.4 Celiac artery compression syndrome

== ENCOUNTER → 2019-11-04 19:05 | Outpatient (CLI) | payer BC ==
[2019-11-04 19:19] LABS: BASOPHILS 0.2 % (0-2); EOSINOPHILS 1.9 % (0-7); HEMATOCRIT 30.3 % (36.0-48.0); HEMOGLOBIN 9.2 g/dL (12-16); IMMATURE GRANULOCYTES 0.2 % (0-5); LYMPHOCYTES 35.9 % (15-50); MCHC 30.4 g/dL (31.0-37.0); MCV 82.3 fL (80.0-100.0); MEAN PLATELET VOLUME 10.3 fL (7.4-10.4); MONOCYTES 11.6 % (2-11); NEUTROPHILS 50.2 % (40-80); PLATELET COUNT 230 10x3/uL (130-400); RBC 3.68 10x6/uL (4.00-5.40); RDW 14.3 % (11.5-14.5); WBC 5.4 10x3/uL (4.8-10.8)
[2019-11-04 19:52] LABS: % SATURATION 27 % (15-55); IRON 106 ug/dl (35-150); TOTAL IRON BIND CAPACITY 384 ug/dl (260-445); UNSAT IRON BIND CAPACITY 278 ug/dl (150-375)
[2019-11-04 20:00] LABS: ALBUMIN 3.3 g/dL (3.4-5.0); ALKALINE PHOSPHATASE 68 U/L (30-120); ALT (SGPT) 26 U/L (10-68); AMYLASE - SERUM 65 U/L (25-115); BILIRUBIN - DIRECT 0.05 mg/dL (0.00-0.30); BILIRUBIN - TOTAL 0.15 mg/dL (0.2-1.3); CALC OSMOLALITY 277 mosm/kg (275-300); CALCIUM 8.3 mg/dL (8.5-10.1); CARBON DIOXIDE 26.5 mmol/L (21.0-32.0); CHLORIDE - SERUM 106 mmol/L (98-107); CREATININE - SERUM 0.7 mg/dL (0.6-1.3); FERRITIN 8 ng/mL (3-244); GLUCOSE 113 mg/dL (74-106); LIPASE 158 U/L (73-393); POTASSIUM - SERUM 3.5 mmol/L (3.5-5.1); PROTEIN - SERUM 6.7 g/dL (6.4-8.2); SODIUM 140 mmol/L (136-145); UREA NITROGEN 8 mg/dL (7-18); eGFR NON AFRICAN AMERICAN > 90 mL/min (90-120)
== END | disposition home or self-care (01) ==
LOC: D.LABREF 19:05
PROVIDERS: ATTEND Family Medicine
DX: K86.1 Other chronic pancreatitis (principal); I77.4 Celiac artery compression syndrome

== ENCOUNTER → 2019-11-11 20:19 | Outpatient (CLI) | payer BC ==
[2019-11-11 20:59] LABS: HEMATOCRIT 31.7 % (36.0-48.0); HEMOGLOBIN 9.8 g/dL (12-16); LYMPHOCYTES 30.1 % (15-50); MCH 25.1 pg (26.0-34.0); MCHC 30.9 g/dL (31.0-37.0); MCV 81.1 fL (80.0-100.0); MEAN PLATELET VOLUME 10.2 fL (7.4-10.4); NEUTROPHILS 60.1 % (40-80); PLATELET COUNT 312 10x3/uL (130-400); RBC 3.91 10x6/uL (4.00-5.40); RDW 14.5 % (11.5-14.5); WBC 5.3 10x3/uL (4.8-10.8)
[2019-11-11 21:23] LABS: ALBUMIN 3.6 g/dL (3.4-5.0); ALKALINE PHOSPHATASE 65 U/L (30-120); ALT (SGPT) 22 U/L (10-68); AMYLASE - SERUM 123 U/L (25-115); BILIRUBIN - DIRECT 0.06 mg/dL (0.00-0.30); BILIRUBIN - INDIRECT 0.27 mg/dL (0.00-1.00); BILIRUBIN - TOTAL 0.33 mg/dL (0.2-1.3); CALC OSMOLALITY 274 mosm/kg (275-300); CALCIUM 8.5 mg/dL (8.5-10.1); CARBON DIOXIDE 25.6 mmol/L (21.0-32.0); CHLORIDE - SERUM 105 mmol/L (98-107); CREATININE - SERUM 0.7 mg/dL (0.6-1.3); FERRITIN 9 ng/mL (3-244); GLUCOSE 89 mg/dL (74-106); LIPASE 495 U/L (73-393); POTASSIUM - SERUM 3.8 mmol/L (3.5-5.1); SODIUM 139 mmol/L (136-145); UREA NITROGEN 8 mg/dL (7-18); eGFR NON AFRICAN AMERICAN > 90 mL/min (90-120)
== END | disposition home or self-care (01) ==
LOC: D.LABREF 20:19
PROVIDERS: ATTEND Family Medicine
DX: K86.1 Other chronic pancreatitis (principal); I77.4 Celiac artery compression syndrome

== ENCOUNTER → 2019-11-21 19:48 | Outpatient (CLI) | payer BC ==
[2019-11-21 20:06] LABS: ALBUMIN 3.1 g/dL (3.4-5.0); CALC OSMOLALITY 282 mosm/kg (275-300); CALCIUM 8.1 mg/dL (8.5-10.1); CARBON DIOXIDE 27.4 mmol/L (21.0-32.0); CHLORIDE - SERUM 109 mmol/L (98-107); CREATININE - SERUM 0.8 mg/dL (0.6-1.3); GLUCOSE 113 mg/dL (74-106); PHOSPHOROUS 3.8 mg/dL (2.5-4.9); POTASSIUM - SERUM 3.4 mmol/L (3.5-5.1); SODIUM 142 mmol/L (136-145); UREA NITROGEN 9 mg/dL (7-18); eGFR NON AFRICAN AMERICAN 87 mL/min (90-120)
== END | disposition home or self-care (01) ==
LOC: D.LABREF 19:48
PROVIDERS: ATTEND Family Medicine
DX: K86.1 Other chronic pancreatitis (principal); I77.4 Celiac artery compression syndrome

== ENCOUNTER → 2019-11-25 18:12 | Outpatient (CLI) | payer BC ==
[2019-11-25 18:22] LABS: BASOPHILS 0.1 % (0-2); EOSINOPHILS 1.5 % (0-7); HEMATOCRIT 39.8 % (36.0-48.0); HEMOGLOBIN 12.9 g/dL (12-16); IMMATURE GRANULOCYTES 0.3 % (0-5); LYMPHOCYTES 26.5 % (15-50); MCH 27.1 pg (26.0-34.0); MCHC 32.4 g/dL (31.0-37.0); MCV 83.6 fL (80.0-100.0); MEAN PLATELET VOLUME 10.6 fL (7.4-10.4); MONOCYTES 9.2 % (2-11); NEUTROPHILS 62.4 % (40-80); RBC 4.76 10x6/uL (4.00-5.40); RDW 14.5 % (11.5-14.5); WBC 7.3 10x3/uL (4.8-10.8)
[2019-11-25 18:25] LABS: PLATELET COUNT 199 10x3/uL (130-400)
[2019-11-25 18:45] LABS: ALBUMIN 3.5 g/dL (3.4-5.0); ALKALINE PHOSPHATASE 55 U/L (30-120); ALT (SGPT) 24 U/L (10-68); AMYLASE - SERUM 92 U/L (25-115); BILIRUBIN - TOTAL 0.23 mg/dL (0.2-1.3); CALC OSMOLALITY 280 mosm/kg (275-300); CALCIUM 8.9 mg/dL (8.5-10.1); CARBON DIOXIDE 26.7 mmol/L (21.0-32.0); CHLORIDE - SERUM 106 mmol/L (98-107); CREATININE - SERUM 0.6 mg/dL (0.6-1.3); GLUCOSE 94 mg/dL (74-106); LIPASE 576 U/L (73-393); POTASSIUM - SERUM 3.3 mmol/L (3.5-5.1); PROTEIN - SERUM 6.6 g/dL (6.4-8.2); SODIUM 142 mmol/L (136-145); UREA NITROGEN 8 mg/dL (7-18); eGFR NON AFRICAN AMERICAN > 90 mL/min (90-120)
== END | disposition home or self-care (01) ==
LOC: D.LABREF 18:12
PROVIDERS: ATTEND Family Medicine
DX: K86.1 Other chronic pancreatitis (principal); I77.4 Celiac artery compression syndrome

== ENCOUNTER → 2019-12-02 20:12 | Outpatient (CLI) | payer BC ==
[2019-12-02 21:27] LABS: BILIRUBIN NEGATIVE (NEGATIVE); GLUCOSE NEGATIVE (NEGATIVE); KETONE NEGATIVE (NEGATIVE); NITRITE NEGATIVE (NEGATIVE); UROBILINOGEN NORMAL (NORMAL)
[2019-12-03 00:37] LABS: % SATURATION 36 % (15-55); IRON 116 ug/dl (35-150); TOTAL IRON BIND CAPACITY 315 ug/dl (260-445); UNSAT IRON BIND CAPACITY 199 ug/dl (150-375)
[2019-12-03 00:42] LABS: BASOPHILS 0.2 % (0-2); EOSINOPHILS 0.6 % (0-7); HEMATOCRIT 38.6 % (36.0-48.0); HEMOGLOBIN 12.3 g/dL (12-16); IMMATURE GRANULOCYTES 0.3 % (0-5); LYMPHOCYTES 29.1 % (15-50); MCH 27.3 pg (26.0-34.0); MCHC 31.9 g/dL (31.0-37.0); MCV 85.6 fL (80.0-100.0); MEAN PLATELET VOLUME 10.1 fL (7.4-10.4); MONOCYTES 6.8 % (2-11); PLATELET COUNT 204 10x3/uL (130-400); RBC 4.51 10x6/uL (4.00-5.40); RDW 14.9 % (11.5-14.5); WBC 10.1 10x3/uL (4.8-10.8)
[2019-12-03 01:01] LABS: ALBUMIN 3.6 g/dL (3.4-5.0); ALKALINE PHOSPHATASE 50 U/L (30-120); ALT (SGPT) 18 U/L (10-68); AMYLASE - SERUM 80 U/L (25-115); BILIRUBIN - TOTAL 0.24 mg/dL (0.2-1.3); CALC OSMOLALITY 279 mosm/kg (275-300); CALCIUM 8.8 mg/dL (8.5-10.1); CARBON DIOXIDE 25.8 mmol/L (21.0-32.0); CHLORIDE - SERUM 106 mmol/L (98-107); CREATININE - SERUM 0.8 mg/dL (0.6-1.3); FERRITIN 105 ng/mL (3-244); GLUCOSE 98 mg/dL (74-106); LIPASE 245 U/L (73-393); POTASSIUM - SERUM 3.4 mmol/L (3.5-5.1); PROTEIN - SERUM 6.6 g/dL (6.4-8.2); SODIUM 141 mmol/L (136-145); UREA NITROGEN 11 mg/dL (7-18); eGFR NON AFRICAN AMERICAN 87 mL/min (90-120)
== END | disposition home or self-care (01) ==
LOC: D.LAB 20:12
PROVIDERS: ATTEND Family Medicine
DX: K86.1 Other chronic pancreatitis (principal); I77.4 Celiac artery compression syndrome

== ENCOUNTER 2019-12-09 12:14 | Emergency (ER) | payer BC, MEDICAID ==
[~2019-12-09] VITALS: Ht 165.1 cm; Wt 54.5 kg
[2019-12-09 12:27] VITALS: Ht 165.1 cm; Wt 54.5 kg
[2019-12-09] MEDS ORDERED: COLACE100 MG PO (12:33)
[2019-12-09] MEDS ORDERED: D5W 1000 ML I1000 ML IV (12:33)
[2019-12-09] MEDS ORDERED: [UNRECOGNIZED DRUG - OTHER] IV (12:34)
[2019-12-09] MEDS ORDERED: HEPARIN IV (12:34)
[2019-12-09 14:03] LABS: BASOPHILS 0.1 % (0-2); EOSINOPHILS 0.4 % (0-7); HEMATOCRIT 38.5 % (36.0-48.0); HEMOGLOBIN 12.7 g/dL (12-16); IMMATURE GRANULOCYTES 0.3 % (0-5); LYMPHOCYTES 22.3 % (15-50); MCH 27.6 pg (26.0-34.0); MCV 83.7 fL (80.0-100.0); MEAN PLATELET VOLUME 9.5 fL (7.4-10.4); NEUTROPHILS 69.9 % (40-80); RDW 14.7 % (11.5-14.5); WBC 7.7 10x3/uL (4.8-10.8)
[2019-12-09 14:07] LABS: PLATELET COUNT 252 10x3/uL (130-400)
[2019-12-09 14:13] LABS: CALC OSMOLALITY 280 mosm/kg (275-300); CALCIUM 8.9 mg/dL (8.5-10.1); CARBON DIOXIDE 23.5 mmol/L (21.0-32.0); CHLORIDE - SERUM 106 mmol/L (98-107); CREATININE - SERUM 0.7 mg/dL (0.6-1.3); GLUCOSE 111 mg/dL (74-106); POTASSIUM - SERUM 3.9 mmol/L (3.5-5.1); SODIUM 141 mmol/L (136-145); UREA NITROGEN 9 mg/dL (7-18); eGFR NON AFRICAN AMERICAN > 90 mL/min (90-120)
[2019-12-09 14:18] LABS: INR 1.04 (0.85-1.17); PROTIME 13.6 SECONDS (11.6-15.0)
[2019-12-09 14:19] LABS: D-DIMER-QUANTITATIVE < 0.27 ug/mLFEU (0.20-0.54)
[2019-12-09 14:20] LABS: APTT 135.9 SECONDS (22.8-39.4)
[2019-12-09 14:27] LABS: ALKALINE PHOSPHATASE 54 U/L (30-120); ALT (SGPT) 25 U/L (10-68); AMYLASE - SERUM 74 U/L (25-115); BILIRUBIN - TOTAL 0.44 mg/dL (0.2-1.3); CREATINE KINASE 39 UL (21-215); LIPASE 209 U/L (73-393); MAGNESIUM - SERUM 1.7 mg/dL (1.8-2.4); PROTEIN - SERUM 7.3 g/dL (6.4-8.2); TROPONIN-I < 0.017 ng/mL (0.000-0.060)
[2019-12-09 15:00] LABS: BILIRUBIN NEGATIVE (NEGATIVE); GLUCOSE NEGATIVE (NEGATIVE); KETONE SMALL mg/dL (NEGATIVE); NITRITE NEGATIVE (NEGATIVE); UROBILINOGEN NORMAL (NORMAL)
[2019-12-09 15:36] VITALS: BP 125/72
== END 2019-12-09 15:37 | disposition home or self-care (01) ==
LOC: D.ER 12:14
PROVIDERS: Family Medicine
DX: R10.13 Epigastric pain (principal)

== ENCOUNTER → 2019-12-17 19:06 | Outpatient (CLI) | payer BC, MEDICAID ==
[~2019-12-17 19:06] MED LIST changes: +COLACE100 MG PO; +D5W 1000 ML I1000 ML IV; +HEPARIN IV; +[UNRECOGNIZED DRUG - OTHER] IV
[2019-12-17 20:47] LABS: % SATURATION 28 % (15-55); IRON 78 ug/dl (35-150); TOTAL IRON BIND CAPACITY 272 ug/dl (260-445); UNSAT IRON BIND CAPACITY 194 ug/dl (150-375)
[2019-12-17 20:59] LABS: ALBUMIN 3.7 g/dL (3.4-5.0); ALKALINE PHOSPHATASE 57 U/L (30-120); ALT (SGPT) 21 U/L (10-68); AMYLASE - SERUM 68 U/L (25-115); BASOPHILS 0.1 % (0-2); BILIRUBIN - DIRECT 0.08 mg/dL (0.00-0.30); BILIRUBIN - TOTAL 0.25 mg/dL (0.2-1.3); CALC OSMOLALITY 276 mosm/kg (275-300); CARBON DIOXIDE 23.9 mmol/L (21.0-32.0); CHLORIDE - SERUM 106 mmol/L (98-107); CREATININE - SERUM 0.7 mg/dL (0.6-1.3); EOSINOPHILS 0.9 % (0-7); FERRITIN 68 ng/mL (3-244); GLUCOSE 90 mg/dL (74-106); HEMATOCRIT 36.6 % (36.0-48.0); HEMOGLOBIN 11.9 g/dL (12-16); IMMATURE GRANULOCYTES 0.2 % (0-5); LIPASE 168 U/L (73-393); LYMPHOCYTES 19.7 % (15-50); MCH 27.7 pg (26.0-34.0); MCHC 32.5 g/dL (31.0-37.0); MCV 85.1 fL (80.0-100.0); MEAN PLATELET VOLUME 10.1 fL (7.4-10.4); MONOCYTES 7.8 % (2-11); NEUTROPHILS 71.3 % (40-80); PLATELET COUNT 255 10x3/uL (130-400); POTASSIUM - SERUM 3.2 mmol/L (3.5-5.1); RDW 14.9 % (11.5-14.5); SODIUM 140 mmol/L (136-145); UREA NITROGEN 6 mg/dL (7-18); WBC 9.3 10x3/uL (4.8-10.8); eGFR NON AFRICAN AMERICAN > 90 mL/min (90-120)
[2019-12-17 21:02] LABS: CALCIUM 8.2 mg/dL (8.5-10.1)
== END | disposition home or self-care (01) ==
LOC: D.LABREF 19:06
PROVIDERS: ATTEND Family Medicine
DX: K86.1 Other chronic pancreatitis (principal); I77.4 Celiac artery compression syndrome

== ENCOUNTER → 2019-12-23 20:06 | Outpatient (CLI) | payer BC, MEDICAID ==
[2019-12-23 21:02] LABS: BASOPHILS 0.2 % (0-2); EOSINOPHILS 0.8 % (0-7); HEMATOCRIT 36.5 % (36.0-48.0); HEMOGLOBIN 11.9 g/dL (12-16); IMMATURE GRANULOCYTES 0.2 % (0-5); LYMPHOCYTES 31.4 % (15-50); MCH 27.9 pg (26.0-34.0); MCHC 32.6 g/dL (31.0-37.0); MCV 85.7 fL (80.0-100.0); MEAN PLATELET VOLUME 10.4 fL (7.4-10.4); MONOCYTES 9.9 % (2-11); NEUTROPHILS 57.5 % (40-80); PLATELET COUNT 225 10x3/uL (130-400); RBC 4.26 10x6/uL (4.00-5.40); RDW 14.8 % (11.5-14.5); WBC 6.1 10x3/uL (4.8-10.8)
[2019-12-23 21:22] LABS: ALBUMIN 3.8 g/dL (3.4-5.0); ALKALINE PHOSPHATASE 54 U/L (30-120); ALT (SGPT) 21 U/L (10-68); AMYLASE - SERUM 65 U/L (25-115); BILIRUBIN - DIRECT 0.04 mg/dL (0.00-0.30); BILIRUBIN - TOTAL 0.14 mg/dL (0.2-1.3); CALC OSMOLALITY 275 mosm/kg (275-300); CALCIUM 8.6 mg/dL (8.5-10.1); CARBON DIOXIDE 26.9 mmol/L (21.0-32.0); CHLORIDE - SERUM 107 mmol/L (98-107); CREATININE - SERUM 0.7 mg/dL (0.6-1.3); GLUCOSE 80 mg/dL (74-106); LIPASE 174 U/L (73-393); POTASSIUM - SERUM 3.9 mmol/L (3.5-5.1); PROTEIN - SERUM 6.7 g/dL (6.4-8.2); SODIUM 140 mmol/L (136-145); UREA NITROGEN 8 mg/dL (7-18); eGFR NON AFRICAN AMERICAN > 90 mL/min (90-120)
== END | disposition home or self-care (01) ==
LOC: D.LABREF 20:06
PROVIDERS: ATTEND Family Medicine
DX: K86.1 Other chronic pancreatitis (principal); I77.4 Celiac artery compression syndrome

== ENCOUNTER → 2020-02-03 16:44 | Outpatient (CLI) | payer BC, MEDICAID ==
[2020-02-03 17:09] LABS: BASOPHILS 0.2 % (0-2); EOSINOPHILS 1.8 % (0-7); HEMATOCRIT 32.7 % (36.0-48.0); HEMOGLOBIN 10.5 g/dL (12-16); IMMATURE GRANULOCYTES 0.2 % (0-5); MCH 28.7 pg (26.0-34.0); MCHC 32.1 g/dL (31.0-37.0); MCV 89.3 fL (80.0-100.0); MEAN PLATELET VOLUME 10.1 fL (7.4-10.4); MONOCYTES 8.8 % (2-11); PLATELET COUNT 240 10x3/uL (130-400); RBC 3.66 10x6/uL (4.00-5.40); RDW 14.7 % (11.5-14.5); WBC 4.9 10x3/uL (4.8-10.8)
[2020-02-03 17:25] LABS: % SATURATION 28 % (15-55); IRON 83 ug/dl (35-150); TOTAL IRON BIND CAPACITY 291 ug/dl (260-445); UNSAT IRON BIND CAPACITY 208 ug/dl (150-375)
[2020-02-03 17:37] LABS: ALBUMIN 3.2 g/dL (3.4-5.0); ALKALINE PHOSPHATASE 48 U/L (30-120); ALT (SGPT) 23 U/L (10-68); AMYLASE - SERUM 154 U/L (25-115); BILIRUBIN - TOTAL 0.29 mg/dL (0.2-1.3); CALC OSMOLALITY 280 mosm/kg (275-300); CALCIUM 8.3 mg/dL (8.5-10.1); CARBON DIOXIDE 26.5 mmol/L (21.0-32.0); CHLORIDE - SERUM 109 mmol/L (98-107); CREATININE - SERUM 0.8 mg/dL (0.6-1.3); FERRITIN 17 ng/mL (3-244); GLUCOSE 93 mg/dL (74-106); LIPASE 960 U/L (73-393); POTASSIUM - SERUM 3.6 mmol/L (3.5-5.1); PROTEIN - SERUM 6.1 g/dL (6.4-8.2); SODIUM 142 mmol/L (136-145); UREA NITROGEN 7 mg/dL (7-18); eGFR NON AFRICAN AMERICAN 87 mL/min (90-120)
[2020-02-03 17:38] LABS: BILIRUBIN - DIRECT 0.03 mg/dL (0.00-0.30)
== END | disposition home or self-care (01) ==
LOC: D.LABREF 16:44
PROVIDERS: ATTEND Family Medicine
DX: K86.1 Other chronic pancreatitis (principal); I77.4 Celiac artery compression syndrome

== ENCOUNTER → 2020-02-10 17:08 | Outpatient (CLI) | payer BC, MEDICAID ==
[2020-02-10 17:22] LABS: BASOPHILS 0.2 % (0-2); EOSINOPHILS 1.5 % (0-7); HEMATOCRIT 32.2 % (36.0-48.0); HEMOGLOBIN 10.3 g/dL (12-16); IMMATURE GRANULOCYTES 0.2 % (0-5); LYMPHOCYTES 37.7 % (15-50); MCH 28.7 pg (26.0-34.0); MCV 89.7 fL (80.0-100.0); MEAN PLATELET VOLUME 10.4 fL (7.4-10.4); MONOCYTES 12.6 % (2-11); NEUTROPHILS 47.8 % (40-80); PLATELET COUNT 232 10x3/uL (130-400); RBC 3.59 10x6/uL (4.00-5.40); RDW 14.3 % (11.5-14.5); WBC 5.4 10x3/uL (4.8-10.8)
[2020-02-10 17:43] LABS: ALBUMIN 3.4 g/dL (3.4-5.0); ALKALINE PHOSPHATASE 45 U/L (30-120); ALT (SGPT) 38 U/L (10-68); AMYLASE - SERUM 125 U/L (25-115); CALC OSMOLALITY 276 mosm/kg (275-300); CALCIUM 8.1 mg/dL (8.5-10.1); CHLORIDE - SERUM 108 mmol/L (98-107); CREATININE - SERUM 0.7 mg/dL (0.6-1.3); GLUCOSE 94 mg/dL (74-106); LIPASE 545 U/L (73-393); PHOSPHOROUS 3.8 mg/dL (2.5-4.9); POTASSIUM - SERUM 4.1 mmol/L (3.5-5.1); PROTEIN - SERUM 6.3 g/dL (6.4-8.2); SODIUM 139 mmol/L (136-145); UREA NITROGEN 11 mg/dL (7-18); eGFR NON AFRICAN AMERICAN > 90 mL/min (90-120)
[2020-02-10 17:47] LABS: BILIRUBIN - TOTAL 0.09 mg/dL (0.2-1.3)
== END | disposition home or self-care (01) ==
LOC: D.LAB 17:08
PROVIDERS: ATTEND Family Medicine
DX: K86.1 Other chronic pancreatitis (principal); I77.4 Celiac artery compression syndrome

== ENCOUNTER → 2020-02-17 20:03 | Outpatient (CLI) | payer BC, MEDICAID ==
[2020-02-17 21:01] LABS: BASOPHILS 0.2 % (0-2); EOSINOPHILS 0.8 % (0-7); HEMATOCRIT 33.3 % (36.0-48.0); HEMOGLOBIN 10.8 g/dL (12-16); IMMATURE GRANULOCYTES 0.2 % (0-5); LYMPHOCYTES 30.4 % (15-50); MCHC 32.4 g/dL (31.0-37.0); MCV 89.3 fL (80.0-100.0); MEAN PLATELET VOLUME 10.5 fL (7.4-10.4); MONOCYTES 10.5 % (2-11); NEUTROPHILS 57.9 % (40-80); PLATELET COUNT 258 10x3/uL (130-400); RBC 3.73 10x6/uL (4.00-5.40); RDW 13.7 % (11.5-14.5); WBC 6.2 10x3/uL (4.8-10.8)
[2020-02-17 21:41] LABS: ALBUMIN 3.7 g/dL (3.4-5.0); ANION GAP 14.6 mmol/L (8-16); BILIRUBIN - DIRECT 0.05 mg/dL (0.00-0.30); BILIRUBIN - INDIRECT 0.12 mg/dL (0.00-1.00); BILIRUBIN - TOTAL 0.17 mg/dL (0.2-1.3); CALCIUM 8.5 mg/dL (8.5-10.1); CARBON DIOXIDE 23.3 mmol/L (21.0-32.0); CREATININE - SERUM 1.1 mg/dL (0.6-1.3); POTASSIUM - SERUM 3.9 mmol/L (3.5-5.1); PROTEIN - SERUM 6.8 g/dL (6.4-8.2)
== END | disposition home or self-care (01) ==
LOC: D.LABREF 20:03
PROVIDERS: ATTEND Family Medicine
DX: K86.1 Other chronic pancreatitis (principal); I77.4 Celiac artery compression syndrome

== ENCOUNTER → 2020-06-29 15:30 | Outpatient (CLI) | payer BC, MEDICARE, MEDICAID ==
[2020-05-30 11:28] VITALS: BMI 23.6
[2020-06-29 16:19] LABS: ALBUMIN 2.9 g/dL (3.4-5.0); ALKALINE PHOSPHATASE 43 U/L (30-120); ALT (SGPT) 18 U/L (10-68); AMYLASE - SERUM 87 U/L (25-115); BILIRUBIN - DIRECT 0.04 mg/dL (0.00-0.30); BILIRUBIN - INDIRECT 0.12 mg/dL (0.00-1.00); BILIRUBIN - TOTAL 0.16 mg/dL (0.2-1.3); CALC OSMOLALITY 272 mosm/kg (275-300); CALCIUM 7.9 mg/dL (8.5-10.1); CHLORIDE - SERUM 103 mmol/L (98-107); CREATININE - SERUM 0.6 mg/dL (0.6-1.3); GLUCOSE 93 mg/dL (74-106); LIPASE 247 U/L (73-393); POTASSIUM - SERUM 3.8 mmol/L (3.5-5.1); PROTEIN - SERUM 6.1 g/dL (6.4-8.2); SODIUM 137 mmol/L (136-145); UREA NITROGEN 11 mg/dL (7-18); eGFR NON AFRICAN AMERICAN > 90 mL/min (90-120)
[2020-06-29 16:52] LABS: BASOPHILS 0.1 % (0-2); EOSINOPHILS 0.8 % (0-7); HEMATOCRIT 29.3 % (36.0-48.0); HEMOGLOBIN 9.4 g/dL (12-16); IMMATURE GRANULOCYTES 0.3 % (0-5); LYMPHOCYTE ABS# 1.46 10x3/uL (1.18-3.74); LYMPHOCYTES 19.7 % (15-50); MCH 26.4 pg (26.0-34.0); MCHC 32.1 g/dL (31.0-37.0); MCV 82.3 fL (80.0-100.0); MEAN PLATELET VOLUME 9.8 fL (7.4-10.4); MONOCYTES 7.6 % (2-11); NEUTROPHILS 71.5 % (40-80); PLATELET COUNT 245 10x3/uL (130-400); RBC 3.56 10x6/uL (4.00-5.40); WBC 7.4 10x3/uL (4.8-10.8)
== END | disposition home or self-care (01) ==
LOC: D.LABREF 15:30
PROVIDERS: ATTEND Family Medicine
DX: K86.1 Other chronic pancreatitis (principal); I77.4 Celiac artery compression syndrome

== ENCOUNTER → 2020-08-10 15:39 | Outpatient (CLI) | payer BC, MEDICARE, MEDICAID ==
[2020-05-30 11:28] VITALS: BMI 23.6
[2020-08-10 15:50] LABS: BASOPHILS 0.2 % (0-2); EOSINOPHILS 0.8 % (0-7); HEMATOCRIT 27.2 % (36.0-48.0); HEMOGLOBIN 8.5 g/dL (12-16); IMMATURE GRANULOCYTES 0.2 % (0-5); LYMPHOCYTE ABS# 1.69 10x3/uL (1.18-3.74); LYMPHOCYTES 17.5 % (15-50); MCH 26.1 pg (26.0-34.0); MCHC 31.3 g/dL (31.0-37.0); MCV 83.4 fL (80.0-100.0); MEAN PLATELET VOLUME 10.6 fL (7.4-10.4); NEUTROPHILS 72.3 % (40-80); RBC 3.26 10x6/uL (4.00-5.40); WBC 9.7 10x3/uL (4.8-10.8)
[2020-08-10 16:03] LABS: PLATELET COUNT 297 10x3/uL (130-400)
[2020-08-10 16:05] LABS: % SATURATION 7 % (15-55); IRON 31 ug/dl (35-150); TOTAL IRON BIND CAPACITY 442 ug/dl (260-445); UNSAT IRON BIND CAPACITY 411 ug/dl (150-375)
[2020-08-10 16:20] LABS: ALBUMIN 2.6 g/dL (3.4-5.0); ALKALINE PHOSPHATASE 63 U/L (30-120); ALT (SGPT) 18 U/L (10-68); AMYLASE - SERUM 229 U/L (25-115); BILIRUBIN - TOTAL 0.19 mg/dL (0.2-1.3); C-REACTIVE PROTEIN 0.4 mg/dL (0.0-0.9); CALC OSMOLALITY 273 mosm/kg (275-300); CALCIUM 8.1 mg/dL (8.5-10.1); CARBON DIOXIDE 20.7 mmol/L (21.0-32.0); CHLORIDE - SERUM 104 mmol/L (98-107); CREATININE - SERUM 0.6 mg/dL (0.6-1.3); FERRITIN 7 ng/mL (3-244); GLUCOSE 96 mg/dL (74-106); LIPASE 1031 U/L (73-393); PHOSPHOROUS 2.8 mg/dL (2.5-4.9); POTASSIUM - SERUM 3.6 mmol/L (3.5-5.1); PROTEIN - SERUM 6.3 g/dL (6.4-8.2); SODIUM 138 mmol/L (136-145); UREA NITROGEN 7 mg/dL (7-18); eGFR NON AFRICAN AMERICAN > 90 mL/min (90-120)
[2020-08-10 16:21] LABS: BILIRUBIN - DIRECT 0.03 mg/dL (0.00-0.30)
== END | disposition home or self-care (01) ==
LOC: D.LABREF 15:39
PROVIDERS: ATTEND Family Medicine
DX: K86.1 Other chronic pancreatitis (principal); I77.4 Celiac artery compression syndrome

== ENCOUNTER → 2020-08-17 16:03 | Outpatient (CLI) | payer BC, MEDICARE, MEDICAID ==
[2020-05-30 11:28] VITALS: BMI 23.6
[2020-08-17 17:23] LABS: BASOPHILS 0.2 % (0-2); EOSINOPHILS 0.7 % (0-7); HEMATOCRIT 27.5 % (36.0-48.0); HEMOGLOBIN 8.6 g/dL (12-16); IMMATURE GRANULOCYTES 0.6 % (0-5); LYMPHOCYTE ABS# 1.72 10x3/uL (1.18-3.74); LYMPHOCYTES 19.7 % (15-50); MCHC 31.3 g/dL (31.0-37.0); MCV 83.1 fL (80.0-100.0); MEAN PLATELET VOLUME 10.1 fL (7.4-10.4); NEUTROPHILS 70.8 % (40-80); PLATELET COUNT 274 10x3/uL (130-400); RBC 3.31 10x6/uL (4.00-5.40); RDW 14.5 % (11.5-14.5); WBC 8.8 10x3/uL (4.8-10.8)
[2020-08-17 17:32] LABS: ALBUMIN 2.5 g/dL (3.4-5.0); ALKALINE PHOSPHATASE 64 U/L (30-120); ALT (SGPT) 13 U/L (10-68); AMYLASE - SERUM 175 U/L (25-115); BILIRUBIN - TOTAL 0.14 mg/dL (0.2-1.3); CARBON DIOXIDE 21.1 mmol/L (21.0-32.0); CHLORIDE - SERUM 105 mmol/L (98-107); CREATININE - SERUM 0.6 mg/dL (0.6-1.3); LIPASE 715 U/L (73-393); PROTEIN - SERUM 6.1 g/dL (6.4-8.2); SODIUM 138 mmol/L (136-145); UREA NITROGEN 7 mg/dL (7-18); eGFR NON AFRICAN AMERICAN > 90 mL/min (90-120)
[2020-08-17 17:33] LABS: BILIRUBIN - DIRECT 0.02 mg/dL (0.00-0.30); CALC OSMOLALITY 271 mosm/kg (275-300); GLUCOSE 67 mg/dL (74-106)
== END | disposition home or self-care (01) ==
LOC: D.LABREF 16:03
PROVIDERS: ATTEND Family Medicine
DX: K86.1 Other chronic pancreatitis (principal); I77.4 Celiac artery compression syndrome

== ENCOUNTER → 2020-08-24 21:21 | Outpatient (CLI) | payer BC, MEDICARE, MEDICAID ==
[2020-05-30 11:28] VITALS: BMI 23.6
[2020-08-24 21:33] LABS: HEMATOCRIT 27.5 % (36.0-48.0); HEMOGLOBIN 8.6 g/dL (12-16); LYMPHOCYTE ABS# 1.43 10x3/uL (1.18-3.74); MCH 25.7 pg (26.0-34.0); MCHC 31.3 g/dL (31.0-37.0); MCV 82.1 fL (80.0-100.0); NEUTROPHIL ABS# 7.49 10x3/uL (1.56-6.13); PLATELET COUNT 265 10x3/uL (130-400); RBC 3.35 10x6/uL (4.00-5.40); RDW 14.3 % (11.5-14.5); WBC 9.7 10x3/uL (4.8-10.8)
[2020-08-24 21:48] LABS: % SATURATION 5 % (15-55); IRON 27 ug/dl (35-150); TOTAL IRON BIND CAPACITY 470 ug/dl (260-445); UNSAT IRON BIND CAPACITY 443 ug/dl (150-375)
[2020-08-24 22:01] LABS: ALBUMIN 2.7 g/dL (3.4-5.0); ALKALINE PHOSPHATASE 64 U/L (30-120); ALT (SGPT) 11 U/L (10-68); AMYLASE - SERUM 169 U/L (25-115); BILIRUBIN - INDIRECT 0.12 mg/dL (0.00-1.00); BILIRUBIN - TOTAL 0.16 mg/dL (0.2-1.3); CALC OSMOLALITY 272 mosm/kg (275-300); CALCIUM 8.3 mg/dL (8.5-10.1); CARBON DIOXIDE 21.8 mmol/L (21.0-32.0); CHLORIDE - SERUM 105 mmol/L (98-107); CREATININE - SERUM 0.6 mg/dL (0.6-1.3); FERRITIN 8 ng/mL (3-244); GLUCOSE 72 mg/dL (74-106); LIPASE 595 U/L (73-393); POTASSIUM - SERUM 3.4 mmol/L (3.5-5.1); PROTEIN - SERUM 6.3 g/dL (6.4-8.2); SODIUM 138 mmol/L (136-145); UREA NITROGEN 8 mg/dL (7-18); eGFR NON AFRICAN AMERICAN > 90 mL/min (90-120)
[2020-08-24 22:02] LABS: BILIRUBIN - DIRECT 0.04 mg/dL (0.00-0.30)
[2020-08-24 22:12] LABS: LYMPHOCYTES 12 % (15-50); MONOCYTES 4 % (2-11); NEUTROPHILS 84 % (40-80); PLATELET ESTIMATE NORMAL
== END | disposition home or self-care (01) ==
LOC: D.LABREF 21:21
PROVIDERS: ATTEND Family Medicine
DX: K86.1 Other chronic pancreatitis (principal); I77.4 Celiac artery compression syndrome

== ENCOUNTER → 2020-08-30 21:26 | Outpatient (CLI) | payer BC, MEDICARE, MEDICAID ==
[2020-05-30 11:28] VITALS: BMI 23.6
[2020-08-30 22:15] LABS: BASOPHILS 0.1 % (0-2); EOSINOPHILS 0.7 % (0-7); HEMATOCRIT 27.4 % (36.0-48.0); HEMOGLOBIN 8.6 g/dL (12-16); IMMATURE GRANULOCYTES 0.3 % (0-5); LYMPHOCYTES 16.2 % (15-50); MCH 25.9 pg (26.0-34.0); MCHC 31.4 g/dL (31.0-37.0); MCV 82.5 fL (80.0-100.0); MEAN PLATELET VOLUME 10.5 fL (7.4-10.4); MONOCYTES 7.8 % (2-11); NEUTROPHIL ABS# 6.45 10x3/uL (1.56-6.13); NEUTROPHILS 74.9 % (40-80); PLATELET COUNT 282 10x3/uL (130-400); RBC 3.32 10x6/uL (4.00-5.40); RDW 14.3 % (11.5-14.5); WBC 8.6 10x3/uL (4.8-10.8)
[2020-08-30 22:25] LABS: ALBUMIN 2.6 g/dL (3.4-5.0); ALKALINE PHOSPHATASE 64 U/L (30-120); ALT (SGPT) 12 U/L (10-68); AMYLASE - SERUM 151 U/L (25-115); BILIRUBIN - DIRECT 0.06 mg/dL (0.00-0.30); BILIRUBIN - INDIRECT 0.11 mg/dL (0.00-1.00); BILIRUBIN - TOTAL 0.17 mg/dL (0.2-1.3); CALC OSMOLALITY 274 mosm/kg (275-300); CALCIUM 8.3 mg/dL (8.5-10.1); CARBON DIOXIDE 20.7 mmol/L (21.0-32.0); CHLORIDE - SERUM 107 mmol/L (98-107); CREATININE - SERUM 0.6 mg/dL (0.6-1.3); GLUCOSE 78 mg/dL (74-106); LIPASE 521 U/L (73-393); POTASSIUM - SERUM 3.7 mmol/L (3.5-5.1); PROTEIN - SERUM 6.2 g/dL (6.4-8.2); SODIUM 139 mmol/L (136-145); UREA NITROGEN 6 mg/dL (7-18); eGFR NON AFRICAN AMERICAN > 90 mL/min (90-120)
== END | disposition home or self-care (01) ==
LOC: D.LABREF 21:26
PROVIDERS: ATTEND Family Medicine
DX: K86.1 Other chronic pancreatitis (principal); I77.4 Celiac artery compression syndrome